=== PATIENT | male | born 1970 | race Caucasian/White ===

== ENCOUNTER 2016-08-08 17:45 | Emergency (ER) | payer SELFPAY ==
[~2016-08-08 17:45] MED LIST: ATEN100T PO; ATOR10TA60 PO; CYCL10TA2 PO; DICY20TA30 PO; HYDR-2666 PO; HYDR-971 PO; INSU100I11 SQ; INSU100I13 SQ; INSU100V31 SQ; LISI40TA PO; METF10002 PO; OMEP20TA PO; PROAIR HFA8.5 GM IH
[2016-08-08] MEDS ORDERED: IV NORMAL SALINE 1000ML BAG 1,000 ML IV SCH (18:12)
[2016-08-08] MEDS ORDERED: ONDANSETRON PF 4 MG/2 ML VIAL. IV ONE (18:15)
[2016-08-08] MEDS ORDERED: FENTANYL PF 100 MCG/2 ML VIAL. IV ONE (18:15)
[2016-08-08] MEDS ORDERED: IPRATRPIUM/ALBUTEROL 0.5/2.5MG 3 ML NEBU. NEB ONE (18:15)
--- NOTE | 2016-08-08 18:15 | PHYS DOC ---
Past Medical History Past Medical History: Asthma, CAD, Diabetes-Type II, Hypertension, Kidney Stone , MRSA, Pancreatitis Additional Past Medical Histor: STAPH INFECTION Past Surgical History: Angioplasty, Cholecystectomy, Other Additional Past Surgical Histo: Lithotripsy x 3, Abscess on back; heart cath Alcohol Use: Rarely Drug Use: None Adult General Chief Complaint Chief Complaint: ABDOMINAL PAIN HPI HPI Patient is a 45 year old who presents with LUQ pain. Patient reports he has been having this pain off/on for a while, however the pain got much worse after dinner tonight. He describes a sharp pain in his left upper quadrant that radiates to his back. He is accompanied by nausea but not vomiting. No pain in his chest, no shortness of breath. He did not take anything for the symptoms at home prior to coming to ED. Patient reports pain similar to past bouts of pancreatitis. Review of Systems Review of Systems Constitutional: Denies fever or chills Eyes: Denies change in visual acuity or eye pain HENT: Denies nasal congestion or sore throat Respiratory: Denies cough or shortness of breath Cardiovascular: Denies chest pain GI: LUQ pain, nausea. Denies vomiting, bloody stools or diarrhea : Denies dysuria or hematuria Musculoskeletal: Denies back pain or joint pain Integument: Denies rash or skin lesions Neurologic: Denies headache, focal weakness or sensory changes Current Medications Current Medications Current Medications Medications (Trade) Dose Ordered Sig/Alice Start Time Stop Time Status Last Admin Dose Admin Albuterol/ Ipratropium (Duoneb) 3 ml 1X ONCE 08/08/16 18:15 08/08/16 18:16 DC 08/08/16 19:07 3 ML Fentanyl Citrate (Fentanyl 2ml Vial) 50 mcg PRN Q1HR PRN 08/08/16 18:45 08/08/16 19:51 DC 08/08/16 18:53 50 MCG Ondansetron HCl (Zofran) 4 mg 1X ONCE 08/08/16 18:15 08/08/16 18:16 DC 08/08/16 18:19 4 MG Oxycodone/ Acetaminophen (Percocet 5/325) 2 tab 1X ONCE 08/08/16 19:30 08/08/16 19:33 DC 08/08/16 19:44 2 TAB Sodium Chloride (Iv Sodium Chloride 0.9% 1000ml Bag) 1,000 ml @ 1,000 mls/hr Q1H 08/08/16 18:12 08/08/16 19:11 DC 08/08/16 18:17 1,000 MLS/HR Allergies Allergies Allergies Coded Allergies Type Severity Reaction Last Updated Verified ketorolac Allergy Severe ANAPHYLAXIS 03/09/15 Yes NSAIDS (Non-Steroidal Anti-Inflamma Allergy Intermediate 10/03/14 Yes gabapentin Allergy Intermediate 12/11/14 Yes morphine Allergy Intermediate Hives, tolerates Dilaudid 12/10/14 Yes vancomycin Allergy Intermediate 06/05/16 Yes Physical Exam Physical Exam Constitutional: Well developed, well nourished, no acute distress, non-toxic appearance HENT: Normocephalic, atraumatic, bilateral external ears normal Eyes: EOMI, conjunctiva normal, no discharge Neck: Normal range of motion, no stridor Cardiovascular: Heart rate normal, regular rhythm, no murmur Lungs & Thorax: Bilateral breath sounds clear to auscultation Abdomen: Bowel sounds normal, soft, non-distended, LUQ TTP Skin: Warm, dry, no erythema, no rash Extremities: No obvious deformity, no edema Neurologic: Alert and oriented X 3, no gross deficits noted Current Patient Data Vital Signs Vital Signs Date Time Temp Pulse Resp B/P Pulse Ox O2 Delivery O2 Flow Rate FiO2 08/08/16 19:44 22 98 Room Air 08/08/16 19:15 110 177/97 08/08/16 18:04 98.5 98.5 Lab Values Laboratory Tests Test 08/08/16 18:10 08/08/16 18:33 White Blood Count 15.8x10^3/uL (4.0-11.0) H Red Blood Count 5.09x10^6/uL (4.30-5.70) Hemoglobin 15.9g/dL (13.0-17.5) Hematocrit 45.6% (39.0-53.0) Mean Corpuscular Volume 90fL (79-100) Mean Corpuscular Hemoglobin 31pg (25-35) Mean Corpuscular Hemoglobin Concent 35g/dL (31-37) Red Cell Distribution Width 13.2% (11.5-14.5) Platelet Count 266x10^3/uL (140-400) Neutrophils (%) (Auto) 80% (31-73) H Lymphocytes (%) (Auto) 14% (24-48) L Monocytes (%) (Auto) 5% (0-9) Eosinophils (%) (Auto) 1% (0-3) Basophils (%) (Auto) 1% (0-3) Neutrophils # (Auto) 12.6x10^3uL (1.8-7.7) H Lymphocytes # (Auto) 2.2x10^3/uL (1.0-4.8) Monocytes # (Auto) 0.7x10^3/uL (0.0-1.1) Eosinophils # (Auto) 0.1x10^3/uL (0.0-0.7) Basophils # (Auto) 0.1x10^3/uL (0.0-0.2) Segmented Neutrophils % 84% (35-66) H Band Neutrophils % 1% (0-9) Lymphocytes % 9% (24-48) L Monocytes % 5% (0-10) Eosinophils % 1% (0-5) Platelet Estimate Adequate (ADEQUATE) Sodium Level 138mmol/L (136-145) Potassium Level 4.4mmol/L (3.5-5.1) Chloride Level 101mmol/L (98-107) Carbon Dioxide Level 27mmol/L (21-32) Anion Gap 10 (6-14) Blood Urea Nitrogen 12mg/dL (8-26) Creatinine 0.8mg/dL (0.7-1.3) Estimated GFR (Cockcroft-Gault) 105.0 BUN/Creatinine Ratio 15 (6-20) Glucose Level 287mg/dL (70-99) H Calcium Level 10.0mg/dL (8.5-10.1) Total Bilirubin 0.3mg/dL (0.2-1.0) Aspartate Amino Transferase (AST) 14U/L (15-37) L Alanine Aminotransferase (ALT) 22U/L (16-63) Alkaline Phosphatase 100U/L (46-116) Total Protein 8.1g/dL (6.4-8.2) Albumin 3.8g/dL (3.4-5.0) Albumin/Globulin Ratio 0.9 (1.0-1.7) L Lipase 96U/L (73-393) Urine Collection Type Unknown Urine Color Yellow Urine Clarity Clear Urine pH 5.5 Urine Specific [place] 1.025 Urine Protein 30mg/dL (NEG-TRACE) Urine Glucose (UA) >=1000mg/dL (NEG) Urine Ketones (Stick) Negativemg/dL (NEG) Urine Blood Negative (NEG) Urine Nitrite Negative (NEG) Urine Bilirubin Negative (NEG) Urine Urobilinogen Dipstick 0.2mg/dL (0.2 mg/dL) Urine Leukocyte Esterase Negative (NEG) Urine RBC Occ/HPF (0-2) Urine WBC 1-4/HPF (0-4) Urine Squamous Epithelial Cells Few/LPF Urine Bacteria 0/HPF (0-FEW) Urine Mucus Mod/LPF Laboratory Tests 08/08/16 18:10 Laboratory Tests 08/08/16 18:10 EKG EKG EKG (my read): sinus tachycardia, rate 114, normal axis, intervals wnl, no acute ischemic changes Radiology/Procedures Radiology/Procedures [] Course & Med Decision Making Course & Med Decision Making Pertinent Labs and Imaging studies reviewed. (See chart for details) Patient is 45 year old male who presents with LUQ pain. Although pancreatitis is on differential, he does not have any epigastric TTP so would consider stomach pathology (gastritis, PUD) to be more likely. Patient has not been taking omeprazole that was prescribed at last visit. Will check labs, UA, EKG. IVF, pain meds, nausea meds ordered for symptom relief. EKG ok per my read. Labs notable for leukocytosis, although this is near recent baseline. Lipase wnl. Discussed results with patient. Discussed importance of taking PPI and following up with gastroenterology. Discharged home with rx for pain meds, nausea meds, omeprazole. Dragon Disclaimer Dragon Disclaimer This electronic medical record was generated, in whole or in part, using a voice recognition dictation system. Departure Departure Impression: Primary Impression: Left upper quadrant pain Disposition: 01 HOME, SELF-CARE Condition: STABLE Referrals: NO PCP (PCP) CYRUS BURROWS MD Patient Instructions: Abdominal Pain (Nonspecific) Additional Instructions: Thank you for allowing us to provide care today in the Emergency Department. Take the provided medication as directed. Use caution after taking the pain medication as it can make you drowsy. Schedule a follow up appointment with a GI specialist (Dr. Burrows) using the provided contact information. Return promptly to the Emergency Department if you develop any new or concerning symptoms. Scripts Omeprazole 20 Mg Tablet.dr20 Mg PO DAILY #30 TAB Prov:BRENNAN LÓPEZ MD 08/08/16 Ondansetron (Zofran Odt)4 Mg Tab.rapdis1 Tab SL Q8HRS PRN NAUSEA #15 TAB Prov:BRENNAN LÓPEZ MD 08/08/16 Hydrocodone/[place]ap 5-325 ([place] 5-325 Tablet)1 Each Tablet1 Tab PO PRN Q6HRS PRN PAIN #20 TAB Prov:BRENNAN LÓPEZ MD 08/08/16 BRENNAN LÓPEZ MD Aug 08, 2016 18:14
[2016-08-08 18:23] LABS: BASO # 0.1 x10^3/uL (0.0-0.2); BASO % 1 % (0-3); EOS % 1 % (0-3); HEMATOCRIT 45.6 % (39.0-53.0); HEMOGLOBIN 15.9 g/dL (13.0-17.5); LYMPH # 2.2 x10^3/uL (1.0-4.8); LYMPH % 14 % (24-48); MEAN CORPUSCULAR HEMOGLOBIN 31 pg (25-35); MEAN CORPUSCULAR HGB CONC 35 g/dL (31-37); MEAN CORPUSCULAR VOLUME 90 fL (79-100); MONO % 5 % (0-9); NEUT % 80 % (31-73); PLATELET COUNT 266 x10^3/uL (140-400); RED BLOOD COUNT 5.09 x10^6/uL (4.30-5.70); RED CELL DISTRIBUTION WIDTH 13.2 % (11.5-14.5); WHITE BLOOD COUNT 15.8 x10^3/uL (4.0-11.0)
[2016-08-08 18:34] LABS: CREATININE 0.8 mg/dL (0.7-1.3); POTASSIUM 4.4 mmol/L (3.5-5.1)
[2016-08-08 18:40] LABS: ALBUMIN 3.8 g/dL (3.4-5.0); ALBUMIN/GLOBULIN RATIO 0.9 (1.0-1.7); TOTAL BILIRUBIN 0.3 mg/dL (0.2-1.0); TOTAL PROTEIN 8.1 g/dL (6.4-8.2)
[2016-08-08] MEDS ORDERED: FENTANYL PF 100 MCG/2 ML VIAL. IV PRN (18:45)
[2016-08-08 18:46] LABS: BILIRUBIN,URINE NEGATIVE (NEG); GLUCOSE,URINE >=1000 mg/dL (NEG); NITRITE,URINE NEGATIVE (NEG); PH,URINE 5.5; UROBILINOGEN,URINE 0.2 mg/dL (0.2 mg/dL)
[2016-08-08 19:04] LABS: BACTERIA,URINE 0 /HPF (0-FEW); PROTEIN,URINE 30 mg/dL (NEG-TRACE); RBC,URINE OCC /HPF (0-2); SQUAMOUS EPITHELIAL CELL,UR FEW /LPF
[2016-08-08 19:15] VITALS: BP 177/97
[2016-08-08 19:19] LABS: % EOS 1 % (0-5); PLT ESTIMATE ADEQUATE (ADEQUATE)
[2016-08-08] MEDS ORDERED: OXYCODONE/APAP 5/325 TABLET. PO ONE (19:30)
[2016-08-08] MEDS ORDERED: ONDA4TAB10 SL (19:33)
[2016-08-08] MEDS ORDERED: HYDR-971 PO (19:33)
[2016-08-08] MEDS ORDERED: OMEP20TA PO (19:33)
--- NOTE | 2016-08-09 11:38 | EKG ---
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
== END 2016-08-08 19:40 | disposition home or self-care (01) ==
LOC: ER 17:45
DX: R10.12 Left upper quadrant pain (principal); J45.909 Unspecified asthma, uncomplicated; E11.9 Type 2 diabetes mellitus without complications; I25.10 Atherosclerotic heart disease of native coronary artery without angina pectoris; I10 Essential (primary) hypertension; Z98.61 Coronary angioplasty status; Z88.6 Allergy status to analgesic agent; Z88.1 Allergy status to other antibiotic agents; Z88.5 Allergy status to narcotic agent; Z88.8 Allergy status to other drugs, medicaments and biological substances
CPT/HCPCS: 36415; 80053; 81001; 83690; 85007; 85027; 93005; 94640; 96361; 96374; 96375; 96376; 99285; J2405; J3010; J7030; J7620

== ENCOUNTER 2016-10-12 15:40 | Inpatient (IN) | payer SELFPAY ==
[~2016-10-12] VITALS: Ht 172.7 cm; Wt 131.8 kg
[~2016-10-12 15:40] MED LIST changes: +ONDA4TAB10 SL
[2016-10-12] MEDS ORDERED: IV NORMAL SALINE 1000ML BAG 1,000 ML IV ONE (16:00)
[2016-10-12 16:16] LABS: BASO # 0.1 x10^3/uL (0.0-0.2); BASO % 1 % (0-3); EOS % 1 % (0-3); HEMATOCRIT 45.3 % (39.0-53.0); HEMOGLOBIN 16.1 g/dL (13.0-17.5); LYMPH # 2.5 x10^3/uL (1.0-4.8); LYMPH % 17 % (24-48); MEAN CORPUSCULAR HEMOGLOBIN 31 pg (25-35); MEAN CORPUSCULAR HGB CONC 36 g/dL (31-37); MEAN CORPUSCULAR VOLUME 87 fL (79-100); MONO % 5 % (0-9); NEUT % 77 % (31-73); PLATELET COUNT 303 x10^3/uL (140-400); RED BLOOD COUNT 5.21 x10^6/uL (4.30-5.70); WHITE BLOOD COUNT 14.9 x10^3/uL (4.0-11.0)
[2016-10-12] MEDS ORDERED: HYDROMORPHONE 2 MG/ML VIAL. IV ONE ×2 (16:30→17:45)
[2016-10-12] MEDS ORDERED: ONDANSETRON PF 4 MG/2 ML VIAL. IV ONE (16:30)
--- NOTE | 2016-10-12 16:30 | EKG ---
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
[2016-10-12 16:53] LABS: BILIRUBIN,URINE NEGATIVE (NEG); GLUCOSE,URINE >=1000 mg/dL (NEG); NITRITE,URINE NEGATIVE (NEG); PH,URINE 6.5; PROTEIN,URINE 30 mg/dL (NEG-TRACE); UROBILINOGEN,URINE 0.2 mg/dL (0.2 mg/dL)
[2016-10-12 17:17] LABS: BACTERIA,URINE 0 /HPF (0-FEW); RBC,URINE >40 /HPF (0-2); SQUAMOUS EPITHELIAL CELL,UR FEW /LPF; WBC,URINE RARE /HPF (0-4)
[2016-10-12 17:36] LABS: CALCIUM 10.4 mg/dL (8.5-10.1); CREATININE 1.1 mg/dL (0.7-1.3); GFR 72.7; POTASSIUM 4.9 mmol/L (3.5-5.1)
[2016-10-12 17:42] LABS: ALBUMIN 3.6 g/dL (3.4-5.0); ALBUMIN/GLOBULIN RATIO 0.8 (1.0-1.7); TOTAL BILIRUBIN 0.4 mg/dL (0.2-1.0); TOTAL PROTEIN 8.4 g/dL (6.4-8.2)
--- NOTE | 2016-10-12 18:16 | RAD ---
PROCEDURE CT abdomen and pelvis without intravenous contrast. HISTORY Abdominal pain. TECHNIQUE Helical CT of the abdomen and pelvis was performed without intravenous or oral contrast. Exposure: One or more of the following individualized dose reduction techniques were utilized for this examination: 1. Automated exposure control. 2. Adjustment of the mA and/or kV according to patient size. 3. Use of iterative reconstruction technique. COMPARISON CT abdomen pelvis June 10, 2016. FINDINGS Evaluation of solid organs is limited by lack of intravenous contrast. Evaluation of enteric structures may be limited by lack of oral contrast. Liver, spleen, pancreas, and bilateral adrenal glands are unremarkable. Gallbladder is absent. Bilateral ureters are free of stone destruction. No left renal stones are seen. Right kidney demonstrates punctate nonobstructive nephrolith. Urinary bladder is unremarkable. No bowel obstruction or inflammation is seen. Appendix is absent. No free air or free fluid is seen in the abdomen or pelvis. Degenerative changes are present in spine. IMPRESSION 1. No acute abnormality identified in the abdomen or pelvis. 2. Punctate nonobstructive right nephrolith. Electronically signed by: Amrik Gee MD (Oct 12, 2016 18:14:56)
--- NOTE | 2016-10-12 18:51 | PHYS DOC ---
Past Medical History Past Medical History: Asthma, CAD, Diabetes-Type II, Hypertension, Kidney Stone , MRSA, Pancreatitis Additional Past Medical Histor: STAPH INFECTION Past Surgical History: Appendectomy, Cholecystectomy, Other Additional Past Surgical Histo: Lithotripsy x 3, Abscess on back; heart cath ( NO STENTS) Alcohol Use: Rarely Drug Use: None Adult General Chief Complaint Chief Complaint: CHEST WALL PAIN HPI HPI 45-year-old male with a history of a cholecystectomy presents with severe epigastric pain after eating lunch today. He states this been going on for about an hour or so. He has had some nausea but no vomiting. He denies any melena or hematemesis. He states he is taking Prilosec on a daily basis. He states the pain is fairly severe and feels very similar to a previous situation just prior to his cholecystectomy.] Review of Systems Review of Systems Constitutional: Denies fever or chills [] Eyes: Denies change in visual acuity, redness, or eye pain [] HENT: Denies nasal congestion or sore throat [] Respiratory: Denies cough or shortness of breath [] Cardiovascular: No additional information not addressed in HPI [] GI: Per history of present illness [] : Denies dysuria or hematuria [] Musculoskeletal: Denies back pain or joint pain [] Integument: Denies rash or skin lesions [] Neurologic: Denies headache, focal weakness or sensory changes [] Endocrine: Denies polyuria or polydipsia [] Current Medications Current Medications Current Medications Medications (Trade) Dose Ordered Sig/Alice Start Time Stop Time Status Last Admin Dose Admin Hydromorphone HCl (Dilaudid) 1 mg 1X ONCE 10/12/16 16:30 10/12/16 16:31 DC 10/12/16 16:24 1 MG Hydromorphone HCl 1 mg 1 mg 1X ONCE 10/12/16 17:45 10/12/16 17:46 DC 10/12/16 17:46 1 MG Ondansetron HCl (Zofran) 4 mg 1X ONCE 10/12/16 16:30 10/12/16 16:31 DC 10/12/16 16:23 4 MG Sodium Chloride (Iv Sodium Chloride 0.9% 1000ml Bag) 1,000 ml @ 150 mls/hr Q6H40M 10/12/16 18:57 10/13/16 18:56 10/12/16 20:30 150 MLS/HR Allergies Allergies Allergies Coded Allergies Type Severity Reaction Last Updated Verified ketorolac Allergy Severe ANAPHYLAXIS 03/09/15 Yes NSAIDS (Non-Steroidal Anti-Inflamma Allergy Intermediate 10/03/14 Yes gabapentin Allergy Intermediate 12/11/14 Yes morphine Allergy Intermediate Hives, tolerates Dilaudid 12/10/14 Yes vancomycin Allergy Intermediate 06/05/16 Yes Physical Exam Physical Exam Constitutional: Well developed, well nourished, no acute distress, non-toxic appearance. [] HENT: Normocephalic, atraumatic, bilateral external ears normal, oropharynx moist, no oral exudates, nose normal. [] Eyes: PERRLA, EOMI, conjunctiva normal, no discharge. [] Neck: Normal range of motion, no tenderness, supple, no stridor. [] Cardiovascular:Heart rate regular rhythm, no murmur [] Lungs & Thorax: Bilateral breath sounds clear to auscultation [] Abdomen: Bowel sounds normal, soft, no tenderness, no masses, no pulsatile masses. [] Skin: Warm, dry, no erythema, no rash. [] Back: No tenderness, no CVA tenderness. [] Extremities: No tenderness, no cyanosis, no clubbing, ROM intact, no edema. [] Neurologic: Alert and oriented X 3, normal motor function, normal sensory function, no focal deficits noted. [] Psychologic: Affect normal, judgement normal, mood normal. [] Current Patient Data Vital Signs Vital Signs Date Time Temp Pulse Resp B/P Pulse Ox O2 Delivery O2 Flow Rate FiO2 10/12/16 18:15 112 203/119 95 Room Air 10/12/16 17:46 14 10/12/16 15:49 98.3 98.3 Lab Values Laboratory Tests Test 10/12/16 16:10 10/12/16 16:40 White Blood Count 14.9x10^3/uL (4.0-11.0) H Red Blood Count 5.21x10^6/uL (4.30-5.70) Hemoglobin 16.1g/dL (13.0-17.5) Hematocrit 45.3% (39.0-53.0) Mean Corpuscular Volume 87fL (79-100) Mean Corpuscular Hemoglobin 31pg (25-35) Mean Corpuscular Hemoglobin Concent 36g/dL (31-37) Red Cell Distribution Width 13.0% (11.5-14.5) Platelet Count 303x10^3/uL (140-400) Neutrophils (%) (Auto) 77% (31-73) H Lymphocytes (%) (Auto) 17% (24-48) L Monocytes (%) (Auto) 5% (0-9) Eosinophils (%) (Auto) 1% (0-3) Basophils (%) (Auto) 1% (0-3) Neutrophils # (Auto) 11.4x10^3uL (1.8-7.7) H Lymphocytes # (Auto) 2.5x10^3/uL (1.0-4.8) Monocytes # (Auto) 0.8x10^3/uL (0.0-1.1) Eosinophils # (Auto) 0.1x10^3/uL (0.0-0.7) Basophils # (Auto) 0.1x10^3/uL (0.0-0.2) Sodium Level 138mmol/L (136-145) Potassium Level 4.9mmol/L (3.5-5.1) Chloride Level 100mmol/L (98-107) Carbon Dioxide Level 23mmol/L (21-32) Anion Gap 15 (6-14) H Blood Urea Nitrogen 20mg/dL (8-26) Creatinine 1.1mg/dL (0.7-1.3) Estimated GFR (Cockcroft-Gault) 72.7 BUN/Creatinine Ratio 18 (6-20) Glucose Level 299mg/dL (70-99) H Calcium Level 10.4mg/dL (8.5-10.1) H Total Bilirubin 0.4mg/dL (0.2-1.0) Aspartate Amino Transferase (AST) 36U/L (15-37) Alanine Aminotransferase (ALT) 30U/L (16-63) Alkaline Phosphatase 91U/L (46-116) Troponin I Quantitative < 0.017ng/mL (0.000-0.055) Total Protein 8.4g/dL (6.4-8.2) H Albumin 3.6g/dL (3.4-5.0) Albumin/Globulin Ratio 0.8 (1.0-1.7) L Lipase 103U/L (73-393) Ethyl Alcohol Level < 10mg/dL (0-10) Urine Collection Type Void Urine Color Yellow Urine Clarity Clear Urine pH 6.5 Urine Specific [place] 1.020 Urine Protein 30mg/dL (NEG-TRACE) Urine Glucose (UA) >=1000mg/dL (NEG) Urine Ketones (Stick) Tracemg/dL (NEG) Urine Blood Large (NEG) Urine Nitrite Negative (NEG) Urine Bilirubin Negative (NEG) Urine Urobilinogen Dipstick 0.2mg/dL (0.2 mg/dL) Urine Leukocyte Esterase Trace (NEG) Urine RBC >40/HPF (0-2) Urine WBC Rare/HPF (0-4) Urine Squamous Epithelial Cells Few/LPF Urine Bacteria 0/HPF (0-FEW) Urine Mucus Slight/LPF Laboratory Tests 10/12/16 16:10 Laboratory Tests 10/12/16 16:10 EKG EKG [] Radiology/Procedures Radiology/Procedures [] Course & Med Decision Making Course & Med Decision Making Pertinent Labs and Imaging studies reviewed. (See chart for details) [ED course: Evaluation reveals 45-year-old male in mild to moderate distress secondary to abdominal pain. He was given IV fluids and 2 doses of Dilaudid with continued pain.] Dragon Disclaimer Dragon Disclaimer This electronic medical record was generated, in whole or in part, using a voice recognition dictation system. Departure Departure Impression: Primary Impression: Abdominal pain Disposition: ADMITTED INPATIENT Admitting Physician: Other (Reusch) Condition: STABLE Referrals: NO PCP (PCP) Problem Qualifiers Primary Impression: Abdominal pain Abdominal location: generalized Qualified Code: R10.84 - Generalized abdominal pain TIP TRAN DO Oct 12, 2016 18:51
[2016-10-12] MEDS ORDERED: DEXTROSE 50% 25 GM / 50ML DISP.SYRIN. IV PRN (19:00)
[2016-10-12] MEDS ORDERED: ONDANSETRON PF 4 MG/2 ML VIAL. IV PRN (19:00)
[2016-10-12] MEDS: FENTANYL PF 100 MCG/2 ML VIAL. IV PRN ×4 (19:44→23:06)
[2016-10-12 20:11] VITALS: BP 148/84
[2016-10-12] MEDS ORDERED: OMEP40CA5 PO (20:26)
[2016-10-12] MEDS ORDERED: ATEN50TA PO (20:26)
--- NOTE | 2016-10-12 20:29 | ACF ---
Admission Forms Criteria TELEMETRY CARE Telemetry Admission Guidelines (Place 'X' for any and all applicable criteria): Admission to telemetry [A] may be indicated for ANY ONE of the following(1)(2)(3 )(4)(5): [X]I. Cardiac disease, including ANY ONE of the following (9)(10)(11)(12)(13 ): [ ]a) Postacute TX [ ]b) Low-risk patients with ST-segment elevation TX who have undergone successful percutaneous coronary intervention [ ]c) Unstable angina [ ]d) Suspected TX (until it is ruled out) [ ]e) Post cardiac surgery (first 48 to 72 hours unless complications occur) [X]f) Acute arrhythmias (including significant tachycardia or bradycardia) [B] [ ]g) Firing of an implantable cardioverter defibrillator [C] [ ]h) Suspected pacemaker or implantable cardioverter defibrillator malfunction (10) [ ]i) New administration or adjustment of an antiarrhythmic drug [D ] [ ]j) Child admitted for acute congestive heart failure [ ]j) Long QT syndrome [ ]k) Advanced heart block (eg, second-degree Mobitz type II, third- degree heart block) [ ]l) Acute myocarditis or pericarditis [ ]m) Short-term (ambulatory or inpatient) monitoring after a cardiac procedure as indicated by ANY ONE of the following [E]: [ ]i) Electrophysiologic studies [ ]ii) Percutaneous coronary intervention with stent placement [ ]iii) Pacemaker placement with cardiac conduction defect [ ]iv) Implantable cardiac defibrillator placement [ ]II. Drug overdose or poisoning with substance that causes arrhythmias or QT prolongation (eg, phenothiazines, sympathomimetic agents, cyclic antidepressants, digitalis, antiarrhythmic drugs)(15) [ ]III. Short-term (ambulatory or inpatient) monitoring after therapeutic or diagnostic procedure requiring conscious sedation or anesthesia (eg, endoscopy, elective cardioversion) [ ]IV. Acute cerebrovascular even[F](18) [ ]V. Massive blood transfusion (eg, at least 10 units of packed red blood cells in 24 hours) [ ]. Variceal bleeding after endoscopy, sclerotherapy, or IV vasopressin [ ]VII. Uncorrected electrolyte abnormalities associated with an increased risk of dangerous arrhythmia [G]; examples include [ ]a) Hyperkalemia with attributable ECG changes [ ]b) Potassium greater than 6.5 mmol/L (mEq/L) in a patient without history of chronic renal disease [ ]c) Prolonged QT attributed to hypokalemia, hypomagnesemia, or hypocalcemia [ ]VIII.Unexplained syncope or other neurologic event suspected of being due to arrhythmia due to a finding that increases risk; examples include(19)(20)(21): [ ]a) High-risk ECG findings (eg, bifascicular block, bradycardia, abnormal QT interval, ventricular pre- excitation) [ ]b) History of previous syncope due to arrhythmia [ ]c) Abnormal ventricular function (eg, reduced ejection fraction ) [ ]d) Exertional or supine syncope [ ]e) Concerning syncope characteristics (eg, sudden loss of consciousness without prodrome) [ ]f) Family history of sudden [ ]g) Use of arrhythmogenic medication [ ]h) Suspected cardiac ischemia [ ]i) Known channelopathy (eg, long QT syndrome, Brugada syndrome, or catecholaminergic paroxysmal ventricular tachycardia) [ ]j) Known structural heart disease (eg, hypertrophic cardiomyopathy , severe valvular disease) [ ]k) Palpitations preceding syncope The original [email or web address] content created by [email or web address] has been revised. The portions of the content which have been revised are identified through the use of italic text or in bold, and [email or web address] has neither reviewed nor approved the modified material. All other unmodified content is copyright [email or web address]. Please see references footnoted in the original [email or web address] edition 2016 WILMAR DAMON Oct 12, 2016 20:29
[2016-10-12] MEDS: IV NORMAL SALINE 1000ML BAG 1,000 ML IV SCH (20:30)
[2016-10-12 23:00] VITALS: BP 153/47
[2016-10-12] MEDS ORDERED: NON FORMULARY ITEM (Albuterol Sulfate (Proair Hfa Inhaler) 2 PUFF) IH SCH (23:30)
[2016-10-12] MEDS: INSULIN DETEMIR 300 UNITS/3 ML INSULN.PEN. SQ SCH (23:37)
[2016-10-12] MEDS ORDERED: ALBUTEROL SULFATE 2.5 MG/3 ML NEBU. NEB PRN (23:45)
[2016-10-13] VITALS (7 sets, daily range): BP systolic 114–158; BP diastolic 66–105
[2016-10-13] MEDS: HYDROMORPHONE 2 MG/ML VIAL. IV PRN ×11 (00:10→22:13)
--- NOTE | 2016-10-13 00:24 | HP ---
ADMIT DATE: 10/12/2016 CHIEF COMPLAINT: Chest wall pain. HISTORY OF PRESENT ILLNESS: The patient is a 45-year-old obese gentleman with diabetes who presented to the Emergency Room with severe right-sided/epigastric abdominal pain that started after eating lunch today. He denied any nausea or vomiting, denies any melena or hematemesis. He does take Prilosec t.i.d. from previous admission for abdominal pain. He states that he actually had undergone cholecystectomy several years ago and the pain currently is very reminiscent of his symptoms then. Once again pain is radiating through all the way to his back. Pain is worse when he stretches or takes a very deep breath. The patient relates that he actually has been in the hospital multiple times for abdominal pain, which apparently was attributed to pancreatitis, multiple times. He was at that time in [facility]. He relates that he also had an EGD done about 6 months ago, which according to him was fairly benign with any significant findings. Nevertheless, he had been started at that time on PPI t.i.d. PAST MEDICAL HISTORY: Abdominal pain as above, recurrent pancreatitis, status post cholecystectomy, CAD, diabetes type 2, hypertension, hyperlipidemia, asthma, history of kidney stones with lithotripsy x 3. FAMILY HISTORY: Positive for diabetes and CAD. SOCIAL HISTORY: Lives with his and 2 children. 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 Denies any tobacco use, quit 11 years ago. No alcohol or drug use. ALLERGIES: NSAIDS, MORPHINE AND VANCOMYCIN. MEDICATIONS: MAR reconciled with home medications. REVIEW OF SYSTEMS: Positive as per HPI. Rest of organ system review is negative. PHYSICAL EXAMINATION: VITAL SIGNS: Today show a blood pressure of 148/84, heart rate of 105, respiratory rate is 22. He is afebrile. GENERAL: This is a morbidly obese 45-year-old gentleman, alert and oriented, in mild distress, trying to lie still without moving. HEENT: Shows no scleral icterus. NECK: Supple. LUNGS: Clear to auscultation bilaterally. CARDIOVASCULAR: Regular rate and rhythm. ABDOMEN: Has positive bowel sounds, soft, tenderness to palpation in the subxiphoid area. He actually locates the pain over his right lower ribs. Pain, however, also present to palpation in the right upper quadrant at the costal border. EXTREMITIES: Show no edema. SKIN: Warm, soft and dry without any rashes. LABORATORY DATA: CBC with a WBC of 14.9, neutrophils 77, lymphocytes 17, hemoglobin 16, platelets at 303. Chemistries with a BUN and creatinine of 20 and 1.1, normal electrolytes. Glucose is 299. Normal LFTs, normal lipase and normal troponin. IMAGING: CT of the abdomen and pelvis without any acute abnormality identified. There is a punctate nonobstructive right nephrolith noted incidentally. ASSESSMENT AND PLAN: The patient is a 45-year-old morbidly obese gentleman with diabetes and history of cholecystitis/cholecystectomy, who now presents with right upper quadrant/rib pain. Etiology is somewhat unclear. CAT scan does not show any abnormality in his biliary tree. History of pancreatitis seems to be not repeating at this point. His lipase was completely normal and the location of pain is not where he had previous issues. GI will be consulted. We will obtain a CTA of the chest as well as to rule out PE. However, suspicion could also be that this is musculoskeletal rather than other etiology. We will try pain control with IV Dilaudid. Fentanyl does not seem to work terribly well for him and he states he has allergy to morphine. I will keep him n.p.o. for now. His diabetes is borderline controlled. We will continue his long-acting insulin, but decrease the dose from 90-40 units while he is n.p.o. Monitor his blood sugars with insulin sliding scale. Although no history of gastritis, he has the unusual prescription of pantoprazole t.i.d. a.c. We will continue that for now. SADAF SUMMERS MD DR: CESAR/osiris JOB#: [id number] / [id number] CLAIRE
[2016-10-13] MEDS: IV NORMAL SALINE 1000ML BAG 1,000 ML IV SCH ×3 (02:10→14:57)
--- NOTE | 2016-10-13 02:43 | ACF ---
Admission Forms Criteria ABDOMINAL PAIN Clinical Indications for Admission to Inpatient Care (Place 'X' for any and all applicable criteria): Admission is indicated for ANY ONE of the following(1)(2)(3)(4)(5): [X]I. Inpatient admission required rather than observation care (Also use Abdominal Pain: Observation Care, as appropriate) because of ANY ONE of the following: [X]a) Severe pain requiring acute inpatient management [ ]b) Identification of etiology/finding that requires inpatient care (eg, aortic dissection, free air) [ ]c) Absent bowel sounds with complete ileus(6) [ ]d) Suspected toxic megacolon [ ]e) Severe electrolyte abnormalities requiring inpatient care [ ]f) High fever or infection requiring inpatient admission as indicated by ANY ONE of following(7)(8): [ ] i) Appropriate outpatient or observational care antimicrobial treatment unavailable, not effective, or not feasible [ ] ii) Documented bacteremia [ ] iii) Temperature > 104.9 degrees F (oral) [ ] iv) T >103.1 F (oral) or < 96.8 F(rectal) that does not respond to all emergency treatment measures [ ]g) Signs of intestinal obstruction [B] [ ]h) Hemodynamic instability [ ]i) IV fluid to replace significant ongoing losses (greater than 3 L/m2 per day) (12)(13) [ ]j) Percutaneous or open drainage (eg, abscess, biliary tract ) procedures [ ]k) Parenteral nutrition regimen that must be implemented on inpatient basis [ ]l) Other condition,treatment or monitoring requiring inpatient admission. [ ]II. Peritoneal signs present [ ]III. Surgery needed that cannot be performed on an ambulatory basis. [ ]IV. Evaluation requires patient to not eat or drink for extended period ( eg, more than 24 hours). [ ]V. Contraindications and/or Inappropriate clinical situations for Observational Care in patients with abdominal pain, when ANY ONE of the following is required: [ ]a) Thorough evaluation is required to prevent catastrophic events due to delays in diagnosing (e.g.Mesenteric ischemia) 1,3 [ ]b) Patient with severe pathology or with chronic symptoms unlikely to improve in the ED stay (3) [ ]. General contraindications and/or Inappropriate clinical situations for Observational Care in patients with abdominal pain, when ANY ONE of the following is required: [ ]a) Prediction of prolongation of LOS based on ANY ONE of the following may be considered as a contraindication for observational care 2, 3, 4, 5, 6, 7, 8, 9, 10, 11 [ ]i) Age > 65 yrs. [ ]ii) Patient arriving by ambulance [ ]iii) Patient with high acuity [ ]iv) Patient requiring vital sign monitoring [ ]v) Patient on IV medication [ ]b) Systolic blood pressures 180mmHg 3,12 [ ]c) Patient with altered mental status including delirium and other alteration of consciousness, (3) [ ]d) Patient whose discharge disposition will be to a correction home or rehabilitation home should not be managed in Emergency Department Observation Unit. CMS rule requires 3 days hospital stay before such placement.3,13 [ ]e) Patient with failure to thrive due to broad array of etiologies 3,16,17 [ ]f) Inability to ambulate 3,14 Extended stay beyond goal length of stay may be needed for(2)(3): [ ]a) Persistent abdominal pain with suspected intra-abdominal process [ ]b) Diagnosed condition requiring continued stay (e.g., pancreatitis, complicated diverticulitis) [ ]c) Surgery (e.g., colectomy) The original [facility] content created by [employer] has been revised. The portions of the content which have been revised are identified through the use of italic text or in bold, and [facility] has neither reviewed nor approved the modified material.All other unmodified content is copyright [employer]. Please see references footnoted in the original [facility] edition 2016 Admission Criteria Met?: Yes WILMAR DAMON Oct 13, 2016 02:43
[2016-10-13] MEDS ORDERED: PANTOPRAZOLE 40 MG TABLET. PO SCH (07:30)
[2016-10-13] MEDS: INSULIN ASPART 300 UNITS/3 ML INSULN.PEN SQ SCH ×3 (08:00→17:00)
--- NOTE | 2016-10-13 08:04 | PDOC ---
PROGRESS NOTES Chief Complaint Chief Complaint CC: abdominal pain A/P Acute epigastric abdominal pain unclear etiology Prior hx of Pancreatitis DM HTN Plan Pain control with iv Dilaudid Avoid CO 2 narcosis GI consultation NPO IV hydration SSI HTN controlled Possible MRCP Prognosis guarded. IV Protonix History of Present Illness History of Present Illness pain 8/10, no fever no emesis Vitals Vitals Vital Signs Date Time Temp Pulse Resp B/P Pulse Ox O2 Delivery O2 Flow Rate FiO2 10/13/16 07:00 97.5 117 16 134/94 92 Room Air 97.5 Physical Exam General: Alert, Oriented X3, Cooperative Heart: Normal S1, Normal S2 Lungs: Clear Abdomen: Normal bowel sounds, Soft, Other (EPI TENDERNESS) Skin: No rashes Labs LABS Laboratory Tests Test 10/12/16 16:10 10/12/16 16:40 10/12/16 20:32 10/13/16 01:20 White Blood Count 14.9x10^3/uL (4.0-11.0) Red Blood Count 5.21x10^6/uL (4.30-5.70) Hemoglobin 16.1g/dL (13.0-17.5) Hematocrit 45.3% (39.0-53.0) Mean Corpuscular Volume 87fL (79-100) Mean Corpuscular Hemoglobin 31pg (25-35) Mean Corpuscular Hemoglobin Concent 36g/dL (31-37) Red Cell Distribution Width 13.0% (11.5-14.5) Platelet Count 303x10^3/uL (140-400) Neutrophils (%) (Auto) 77% (31-73) Lymphocytes (%) (Auto) 17% (24-48) Monocytes (%) (Auto) 5% (0-9) Eosinophils (%) (Auto) 1% (0-3) Basophils (%) (Auto) 1% (0-3) Neutrophils # (Auto) 11.4x10^3uL (1.8-7.7) Lymphocytes # (Auto) 2.5x10^3/uL (1.0-4.8) Monocytes # (Auto) 0.8x10^3/uL (0.0-1.1) Eosinophils # (Auto) 0.1x10^3/uL (0.0-0.7) Basophils # (Auto) 0.1x10^3/uL (0.0-0.2) Sodium Level 138mmol/L (136-145) Potassium Level 4.9mmol/L (3.5-5.1) Chloride Level 100mmol/L (98-107) Carbon Dioxide Level 23mmol/L (21-32) Anion Gap 15 (6-14) Blood Urea Nitrogen 20mg/dL (8-26) Creatinine 1.1mg/dL (0.7-1.3) Estimated GFR (Cockcroft-Gault) 72.7 BUN/Creatinine Ratio 18 (6-20) Glucose Level 299mg/dL (70-99) Calcium Level 10.4mg/dL (8.5-10.1) Total Bilirubin 0.4mg/dL (0.2-1.0) Aspartate Amino Transf (AST/SGOT) 36U/L (15-37) Alanine Aminotransferase (ALT/SGPT) 30U/L (16-63) Alkaline Phosphatase 91U/L (46-116) Troponin I Quantitative < 0.017ng/mL (0.000-0.055) < 0.017ng/mL (0.000-0.055) Total Protein 8.4g/dL (6.4-8.2) Albumin 3.6g/dL (3.4-5.0) Albumin/Globulin Ratio 0.8 (1.0-1.7) Lipase 103U/L (73-393) Ethyl Alcohol Level < 10mg/dL (0-10) Urine Collection Type Void Urine Color Yellow Urine Clarity Clear Urine pH 6.5 Urine Specific [place] 1.020 Urine Protein 30mg/dL (NEG-TRACE) Urine Glucose (UA) >=1000mg/dL (NEG) Urine Ketones (Stick) Tracemg/dL (NEG) Urine Blood Large (NEG) Urine Nitrite Negative (NEG) Urine Bilirubin Negative (NEG) Urine Urobilinogen Dipstick 0.2mg/dL (0.2 mg/dL) Urine Leukocyte Esterase Trace (NEG) Urine RBC >40/HPF (0-2) Urine WBC Rare/HPF (0-4) Urine Squamous Epithelial Cells Few/LPF Urine Bacteria 0/HPF (0-FEW) Urine Mucus Slight/LPF Glucose (Fingerstick) 172mg/dL (70-99) Test 10/13/16 06:55 Troponin I Quantitative < 0.017ng/mL (0.000-0.055) Assessment and Plan Assessmemt and Plan Problems Medical Problems: (1) Abdominal pain Status: Acute Problems: Comment Review of Relevant I have reviewed the following items susan (where applicable) has been applied. Labs Laboratory Tests Test 10/12/16 16:10 10/12/16 16:40 10/12/16 20:32 10/13/16 01:20 White Blood Count 14.9x10^3/uL (4.0-11.0) Red Blood Count 5.21x10^6/uL (4.30-5.70) Hemoglobin 16.1g/dL (13.0-17.5) Hematocrit 45.3% (39.0-53.0) Mean Corpuscular Volume 87fL (79-100) Mean Corpuscular Hemoglobin 31pg (25-35) Mean Corpuscular Hemoglobin Concent 36g/dL (31-37) Red Cell Distribution Width 13.0% (11.5-14.5) Platelet Count 303x10^3/uL (140-400) Neutrophils (%) (Auto) 77% (31-73) Lymphocytes (%) (Auto) 17% (24-48) Monocytes (%) (Auto) 5% (0-9) Eosinophils (%) (Auto) 1% (0-3) Basophils (%) (Auto) 1% (0-3) Neutrophils # (Auto) 11.4x10^3uL (1.8-7.7) Lymphocytes # (Auto) 2.5x10^3/uL (1.0-4.8) Monocytes # (Auto) 0.8x10^3/uL (0.0-1.1) Eosinophils # (Auto) 0.1x10^3/uL (0.0-0.7) Basophils # (Auto) 0.1x10^3/uL (0.0-0.2) Sodium Level 138mmol/L (136-145) Potassium Level 4.9mmol/L (3.5-5.1) Chloride Level 100mmol/L (98-107) Carbon Dioxide Level 23mmol/L (21-32) Anion Gap 15 (6-14) Blood Urea Nitrogen 20mg/dL (8-26) Creatinine 1.1mg/dL (0.7-1.3) Estimated GFR (Cockcroft-Gault) 72.7 BUN/Creatinine Ratio 18 (6-20) Glucose Level 299mg/dL (70-99) Calcium Level 10.4mg/dL (8.5-10.1) Total Bilirubin 0.4mg/dL (0.2-1.0) Aspartate Amino Transf (AST/SGOT) 36U/L (15-37) Alanine Aminotransferase (ALT/SGPT) 30U/L (16-63) Alkaline Phosphatase 91U/L (46-116) Troponin I Quantitative < 0.017ng/mL (0.000-0.055) < 0.017ng/mL (0.000-0.055) Total Protein 8.4g/dL (6.4-8.2) Albumin 3.6g/dL (3.4-5.0) Albumin/Globulin Ratio 0.8 (1.0-1.7) Lipase 103U/L (73-393) Ethyl Alcohol Level < 10mg/dL (0-10) Urine Collection Type Void Urine Color Yellow Urine Clarity Clear Urine pH 6.5 Urine Specific [place] 1.020 Urine Protein 30mg/dL (NEG-TRACE) Urine Glucose (UA) >=1000mg/dL (NEG) Urine Ketones (Stick) Tracemg/dL (NEG) Urine Blood Large (NEG) Urine Nitrite Negative (NEG) Urine Bilirubin Negative (NEG) Urine Urobilinogen Dipstick 0.2mg/dL (0.2 mg/dL) Urine Leukocyte Esterase Trace (NEG) Urine RBC >40/HPF (0-2) Urine WBC Rare/HPF (0-4) Urine Squamous Epithelial Cells Few/LPF Urine Bacteria 0/HPF (0-FEW) Urine Mucus Slight/LPF Glucose (Fingerstick) 172mg/dL (70-99) Test 10/13/16 06:55 Troponin I Quantitative < 0.017ng/mL (0.000-0.055) Laboratory Tests Test 10/12/16 16:10 10/12/16 16:40 10/12/16 20:32 10/13/16 01:20 White Blood Count 14.9x10^3/uL (4.0-11.0) Red Blood Count 5.21x10^6/uL (4.30-5.70) Hemoglobin 16.1g/dL (13.0-17.5) Hematocrit 45.3% (39.0-53.0) Mean Corpuscular Volume 87fL (79-100) Mean Corpuscular Hemoglobin 31pg (25-35) Mean Corpuscular Hemoglobin Concent 36g/dL (31-37) Red Cell Distribution Width 13.0% (11.5-14.5) Platelet Count 303x10^3/uL (140-400) Neutrophils (%) (Auto) 77% (31-73) Lymphocytes (%) (Auto) 17% (24-48) Monocytes (%) (Auto) 5% (0-9) Eosinophils (%) (Auto) 1% (0-3) Basophils (%) (Auto) 1% (0-3) Neutrophils # (Auto) 11.4x10^3uL (1.8-7.7) Lymphocytes # (Auto) 2.5x10^3/uL (1.0-4.8) Monocytes # (Auto) 0.8x10^3/uL (0.0-1.1) Eosinophils # (Auto) 0.1x10^3/uL (0.0-0.7) Basophils # (Auto) 0.1x10^3/uL (0.0-0.2) Sodium Level 138mmol/L (136-145) Potassium Level 4.9mmol/L (3.5-5.1) Chloride Level 100mmol/L (98-107) Carbon Dioxide Level 23mmol/L (21-32) Anion Gap 15 (6-14) Blood Urea Nitrogen 20mg/dL (8-26) Creatinine 1.1mg/dL (0.7-1.3) Estimated GFR (Cockcroft-Gault) 72.7 BUN/Creatinine Ratio 18 (6-20) Glucose Level 299mg/dL (70-99) Calcium Level 10.4mg/dL (8.5-10.1) Total Bilirubin 0.4mg/dL (0.2-1.0) Aspartate Amino Transf (AST/SGOT) 36U/L (15-37) Alanine Aminotransferase (ALT/SGPT) 30U/L (16-63) Alkaline Phosphatase 91U/L (46-116) Troponin I Quantitative < 0.017ng/mL (0.000-0.055) < 0.017ng/mL (0.000-0.055) Total Protein 8.4g/dL (6.4-8.2) Albumin 3.6g/dL (3.4-5.0) Albumin/Globulin Ratio 0.8 (1.0-1.7) Lipase 103U/L (73-393) Ethyl Alcohol Level < 10mg/dL (0-10) Urine Collection Type Void Urine Color Yellow Urine Clarity Clear Urine pH 6.5 Urine Specific [place] 1.020 Urine Protein 30mg/dL (NEG-TRACE) Urine Glucose (UA) >=1000mg/dL (NEG) Urine Ketones (Stick) Tracemg/dL (NEG) Urine Blood Large (NEG) Urine Nitrite Negative (NEG) Urine Bilirubin Negative (NEG) Urine Urobilinogen Dipstick 0.2mg/dL (0.2 mg/dL) Urine Leukocyte Esterase Trace (NEG) Urine RBC >40/HPF (0-2) Urine WBC Rare/HPF (0-4) Urine Squamous Epithelial Cells Few/LPF Urine Bacteria 0/HPF (0-FEW) Urine Mucus Slight/LPF Glucose (Fingerstick) 172mg/dL (70-99) Test 10/13/16 06:55 Troponin I Quantitative < 0.017ng/mL (0.000-0.055) Medications Current Medications Hydromorphone HCl 1 mg 1 mg 1X ONCE IV Last administered on 10/12/16 16:24; Start 10/12/16 at 16:30; Stop 10/12/16 at 16:31; Status DC Sodium Chloride (Iv Sodium Chloride 0.9% 1000ml Bag) 1,000 ml @ 1,000 mls/hr 1X ONCE IV Last administered on 10/12/16 16:24; Start 10/12/16 at 16:00; Stop 10/12/16 at 16:59; Status DC Ondansetron HCl (Zofran) 4 mg 1X ONCE IV Last administered on 10/12/16 16:23 ; Start 10/12/16 at 16:30; Stop 10/12/16 at 16:31; Status DC Hydromorphone HCl (Dilaudid) 1 mg 1X ONCE IV Last administered on 10/12/16 17 :46; Start 10/12/16 at 17:45; Stop 10/12/16 at 17:46; Status DC Ondansetron HCl (Zofran) 4 mg PRN Q8HRS PRN IV NAUSEA/VOMITING; Start 10/12/16 at 19:00; Stop 10/13/16 at 18:59 Fentanyl Citrate 50 mcg 50 mcg PRN Q1HR PRN IV PAIN Last administered on 23:06; Start 10/12/16 at 19:00; Stop 10/13/16 at 18:59 Sodium Chloride (Iv Sodium Chloride 0.9% 1000ml Bag) 1,000 ml @ 150 mls/hr Q6H40M IV Last administered on 10/13/16 02:10; Start 10/12/16 at 18:57; Stop 10/13/16 at 18:56 Insulin Aspart (Novolog) 0-7 UNITS TIDWMEALS SQ ; Start 10/13/16 at 08:00 Dextrose 12.5 gm PRN Q15MIN PRN IV SEE COMMENTS; Start 10/12/16 at 19:00 Hydromorphone HCl (Dilaudid) 0.5 mg PRN Q2HRS PRN IV pain Last administered on 10/13/16 06:27; Start 10/12/16 at 23:30 Atenolol (Tenormin) 50 mg DAILY PO ; Start 10/13/16 at 09:00 Atorvastatin Calcium (Lipitor) 20 mg HS PO ; Start 10/13/16 at 21:00 Lisinopril (Prinivil) 40 mg DAILY PO ; Start 10/13/16 at 09:00 Non-Formulary Medication 2 puff PRN Q4-6HRS IH ; Start 10/12/16 at 23:30; Status UNV Pantoprazole Sodium (Protonix) 40 mg DAILYAC PO ; Start 10/13/16 at 07:30 Insulin Detemir (Levemir) 40 units QHS SQ ; Start 10/12/16 at 23:45 Albuterol Sulfate (Ventolin Neb Soln) 2.5 mg PRN Q4HRS PRN NEB SHORTNESS OF BREATH; Start 10/12/16 at 23:45 Active Scripts Active Reported Atenolol 50 Mg Tablet 1 Tab PO DAILY Omeprazole 40 Mg Capsule.dr 1 Cap PO TIDAC Proair Hfa Inhaler (Albuterol Sulfate) 8.5 Gm Hfa.aer.ad 2 Puff IH PRN Q4-6HRS Atorvastatin Calcium 10 Mg Tablet 20 Mg PO DAILY Lantus Solostar (Insulin Glargine,Hum.rec.anlog) 100 Unit/1 Ml Insuln.pen 90 Unit SQ QHS Lisinopril 40 Mg Tablet 1 Tab PO DAILY Vitals/I & O Vital Sign - Last 24 Hours 10/12/16 10/12/16 10/12/16 10/12/16 15:49 15:57 16:24 16:27 Temp 98.3 98.3 Pulse 122 112 101 Resp 18 12 15 B/P 178/100 174/80 149/74 Pulse Ox 97 97 95 O2 Delivery Room Air Room Air Room Air Room Air 10/12/16 10/12/16 10/12/16 10/12/16 17:45 17:46 18:15 19:34 Pulse 99 112 95 Resp 14 14 B/P 186/136 203/119 143/75 Pulse Ox 96 97 95 96 O2 Delivery Room Air Room Air Room Air Room Air 10/12/16 10/12/16 10/12/16 10/12/16 19:44 20:00 20:11 20:48 Temp 98.1 98.1 Pulse 105 Resp 22 18 B/P 148/84 Pulse Ox 98 98 O2 Delivery Room Air Room Air Room Air 10/12/16 10/12/16 10/12/16 10/12/16 21:53 23:00 23:06 23:23 Temp 97.9 97.9 Pulse 98 Resp 16 18 16 18 B/P 153/47 Pulse Ox 98 99 98 98 O2 Delivery Room Air Room Air Room Air 10/13/16 10/13/16 10/13/16 10/13/16 00:10 02:09 03:00 04:02 Temp 98.1 98.1 Pulse 103 Resp 18 16 20 B/P 142/105 158/85 Pulse Ox 98 98 97 O2 Delivery Room Air Room Air Room Air 10/13/16 10/13/16 10/13/16 10/13/16 04:18 06:27 06:42 07:00 Temp 97.5 97.5 Pulse 117 Resp 16 18 16 16 B/P 134/94 Pulse Ox 97 97 97 92 O2 Delivery Room Air Room Air Room Air Room Air Intake and Output 10/12/16 10/12/16 10/13/16 15:00 23:00 07:00 Intake Total 1000 ml 1000 ml Balance 1000 ml 1000 ml OCTAVIA MARC MD Oct 13, 2016 08:04
[2016-10-13] MEDS: ATENOLOL 50 MG TABLET PO SCH (08:28)
[2016-10-13] MEDS: LISINOPRIL 40 MG TABLET. PO SCH (08:28)
--- NOTE | 2016-10-13 12:20 | PDOC2 ---
GI CONSULT Reason For Consult: Epigastric pain HPI: HPI: 45 y/o male admitted through the ER yesterday. GI history significant for cholecystectomy years ago for biliary dyskinesia (describes GB EF 19%), pancreatitis x3-4 last year w/o clear etiology (describes elevated lipase w/ LUQ pain and normal CTs in [place], [place]), appendectomy last year (abnormal appendix noted on one of the CTs performed for elevated lipase), C Diff x 2 after taking antibiotics for staph infection (first treated w/ vanco, second time treated w/ metronidazole due to [facility]), heartburn (on omeprazole BID per the advice of an ER physician) w/ previous EGD in [place], [place] , reportedly normal ~8 months ago. Has had intermittent epigastric pain for awhile that suddenly became more severe around 2:00 p.m. yesterday after eating fish and rice. Location is "just below sternum" w/ radiation straight through to his back and is worse w/ movement. Slightly different than pancreatitis ( and also different than nephrolithiasis pain). Has been NPO here but would like something to drink. Some nausea w/o vomiting. H/o irregular bowel habits leaning more toward loose stools (better here). No previous colonoscopy. No NSAID use due to allergy (swelling), takes Tylenol for chronic back pain. Rarely drinks alcohol. No previous colonoscopy. PMH: PMH: HTN, HLD, DM, asthma, nephrolithiasis s/p lithotripsy, GERD, pancreatitis, hepatic steatosis, C Diff x 2, cholecystectomy for biliary dyskinesia, appendectomy FH: Family History: Cancer (stomach cancer - paternal grandparent) Social History: Smoke: Quit ALCOHOL: rare Drugs: None ROS: GEN: +chills, sweats HEENT: Denies blurred vision, sore throat CV: Denies chest pain RESP: Denies shortness of air, cough GI: Per HPI : Denies hematuria, dysuria ENDO: +some intentional weight loss NEURO: Denies confusion, dizziness MSK: Denies weakness, joint pain/swelling SKIN: Denies jaundice, pruritus VItals: Vitals: Vital Signs Date Time Temp Pulse Resp B/P Pulse Ox O2 Delivery O2 Flow Rate FiO2 10/13/16 11:11 98.1 75 16 122/67 94 Room Air 98.1 Labs: Labs: Laboratory Tests Test 10/12/16 16:10 10/12/16 16:40 10/12/16 20:32 10/13/16 01:20 White Blood Count 14.9x10^3/uL (4.0-11.0) Red Blood Count 5.21x10^6/uL (4.30-5.70) Hemoglobin 16.1g/dL (13.0-17.5) Hematocrit 45.3% (39.0-53.0) Mean Corpuscular Volume 87fL (79-100) Mean Corpuscular Hemoglobin 31pg (25-35) Mean Corpuscular Hemoglobin Concent 36g/dL (31-37) Red Cell Distribution Width 13.0% (11.5-14.5) Platelet Count 303x10^3/uL (140-400) Neutrophils (%) (Auto) 77% (31-73) Lymphocytes (%) (Auto) 17% (24-48) Monocytes (%) (Auto) 5% (0-9) Eosinophils (%) (Auto) 1% (0-3) Basophils (%) (Auto) 1% (0-3) Neutrophils # (Auto) 11.4x10^3uL (1.8-7.7) Lymphocytes # (Auto) 2.5x10^3/uL (1.0-4.8) Monocytes # (Auto) 0.8x10^3/uL (0.0-1.1) Eosinophils # (Auto) 0.1x10^3/uL (0.0-0.7) Basophils # (Auto) 0.1x10^3/uL (0.0-0.2) Sodium Level 138mmol/L (136-145) Potassium Level 4.9mmol/L (3.5-5.1) Chloride Level 100mmol/L (98-107) Carbon Dioxide Level 23mmol/L (21-32) Anion Gap 15 (6-14) Blood Urea Nitrogen 20mg/dL (8-26) Creatinine 1.1mg/dL (0.7-1.3) Estimated GFR (Cockcroft-Gault) 72.7 BUN/Creatinine Ratio 18 (6-20) Glucose Level 299mg/dL (70-99) Calcium Level 10.4mg/dL (8.5-10.1) Total Bilirubin 0.4mg/dL (0.2-1.0) Aspartate Amino Transf (AST/SGOT) 36U/L (15-37) Alanine Aminotransferase (ALT/SGPT) 30U/L (16-63) Alkaline Phosphatase 91U/L (46-116) Troponin I Quantitative < 0.017ng/mL (0.000-0.055) < 0.017ng/mL (0.000-0.055) Total Protein 8.4g/dL (6.4-8.2) Albumin 3.6g/dL (3.4-5.0) Albumin/Globulin Ratio 0.8 (1.0-1.7) Lipase 103U/L (73-393) Ethyl Alcohol Level < 10mg/dL (0-10) Urine Collection Type Void Urine Color Yellow Urine Clarity Clear Urine pH 6.5 Urine Specific [place] 1.020 Urine Protein 30mg/dL (NEG-TRACE) Urine Glucose (UA) >=1000mg/dL (NEG) Urine Ketones (Stick) Tracemg/dL (NEG) Urine Blood Large (NEG) Urine Nitrite Negative (NEG) Urine Bilirubin Negative (NEG) Urine Urobilinogen Dipstick 0.2mg/dL (0.2 mg/dL) Urine Leukocyte Esterase Trace (NEG) Urine RBC >40/HPF (0-2) Urine WBC Rare/HPF (0-4) Urine Squamous Epithelial Cells Few/LPF Urine Bacteria 0/HPF (0-FEW) Urine Mucus Slight/LPF Glucose (Fingerstick) 172mg/dL (70-99) Test 10/13/16 06:55 10/13/16 10:35 Troponin I Quantitative < 0.017ng/mL (0.000-0.055) Glucose (Fingerstick) 141mg/dL (70-99) Allergies: Coded Allergies: ketorolac (Verified Allergy, Severe, ANAPHYLAXIS, 03/09/15) NSAIDS (Non-Steroidal Anti-Inflamma (Verified Allergy, Intermediate, ) gabapentin (Verified Allergy, Intermediate, 12/11/14) pt verbalized getting hives morphine (Verified Allergy, Intermediate, Hives, tolerates Dilaudid, ) vancomycin (Verified Allergy, Intermediate, 06/05/16) Medications: Current Medications Medications (Trade) Dose Ordered Sig/Alice Route PRN Reason Start Time Stop Time Status Last Admin Dose Admin Hydromorphone HCl 1 mg 1 mg 1X ONCE IV 10/12/16 16:30 10/12/16 16:31 DC 10/12/16 16:24 Sodium Chloride (Iv Sodium Chloride 0.9% 1000ml Bag) 1,000 ml @ 1,000 mls/hr 1X ONCE IV 10/12/16 16:00 10/12/16 16:59 DC 10/12/16 16:24 Ondansetron HCl (Zofran) 4 mg 1X ONCE IV 10/12/16 16:30 10/12/16 16:31 DC 10/12/16 16:23 Hydromorphone HCl (Dilaudid) 1 mg 1X ONCE IV 10/12/16 17:45 10/12/16 17:46 DC 10/12/16 17:46 Ondansetron HCl (Zofran) 4 mg PRN Q8HRS PRN IV NAUSEA/VOMITING 10/12/16 19:00 10/13/16 18:59 10/13/16 10:39 Fentanyl Citrate 50 mcg 50 mcg PRN Q1HR PRN IV PAIN 10/12/16 19:00 10/13/16 08:04 DC 10/12/16 23:06 Sodium Chloride (Iv Sodium Chloride 0.9% 1000ml Bag) 1,000 ml @ 150 mls/hr Q6H40M IV 10/12/16 18:57 10/13/16 18:56 10/13/16 08:29 Hydromorphone HCl (Dilaudid) 0.5 mg PRN Q2HRS PRN IV pain 10/12/16 23:30 10/13/16 09:25 DC 10/13/16 08:28 Atenolol (Tenormin) 50 mg DAILY PO 10/13/16 09:00 10/13/16 08:28 Lisinopril (Prinivil) 40 mg DAILY PO 10/13/16 09:00 10/13/16 08:28 Hydromorphone HCl (Dilaudid) 1 mg PRN Q2HRS PRN IV pain 10/13/16 09:30 10/13/16 10:26 Imaging: Imaging: CT A/P w/o contrast FINDINGS Liver, spleen, pancreas, and bilateral adrenal glands are unremarkable. Gallbladder is absent. Bilateral ureters are free of stone destruction. No left renal stones are seen. Right kidney demonstrates punctate nonobstructive nephrolith. Urinary bladder is unremarkable. No bowel obstruction or inflammation is seen. Appendix is absent. No free air or free fluid is seen in the abdomen or pelvis. Degenerative changes are present in spine. IMPRESSION 1. No acute abnormality identified in the abdomen or pelvis. 2. Punctate nonobstructive right nephrolith. PE: GEN: NAD HEENT: Atraumatic, PERRL LUNGS: CTAB HEART: RRR ABD: BS quiet, obese, soft, epigastric tenderness, less so LUQ toward LLQ EXTREMITY: No edema SKIN: No rashes, no jaundice NEURO/PSYCH: A & O 3 A/P: A/P: Epigastric pain -intermittent pain for awhile, much more severe yesterday after eating lunch -CT w/o contrast unrevealing (nonobstructive right nephrolith) -no NSAID use H/o pancreatitis w/ unclear etiology -3-4 episodes last year in [place], [place] -recalls LUQ pain w/ elevated lipase and normal imaging -s/p cholecystectomy years prior to this for biliary dyskinesia -rarely consumes alcohol -lipase, LFTs normal here Heartburn -on PPI BID at home, reports normal EGD ~8 months ago H/o C Diff x 2, irregular bowel habits -intermittently has loose stools CRC screen -no previous colonoscopy -- Check MRCP and lipid panel. If unrevealing, consider outpt [facility] ([facility] or [facility]). TERRA GOODRICH Oct 13, 2016 12:19
--- NOTE | 2016-10-13 16:32 | RAD ---
EXAM: MRCP without contrast. HISTORY: Epigastric pain. Pancreatitis. TECHNIQUE: Multiplanar and multisequence magnetic resonance imaging of the abdomen was performed. Three-dimensional and two-dimensional images were obtained.. COMPARISON: CT dated 10/12/2016. FINDINGS: There is mild hepatomegaly and minimal hepatic steatosis. No focal hepatic lesion is seen. The gallbladder is surgically absent. No filling defect is seen within the common bile duct. There is a prominent pancreatic duct without clear dilatation. No focal pancreatic lesion is seen. There is mild splenomegaly, measuring 15.0 cm. The adrenal glands are unremarkable. There is a 3 mm suspected exophytic cyst within the upper pole of the right kidney. There are degenerative changes involving the lumbar spine. IMPRESSION: 1. Mild hepatosplenomegaly. There is suspected minimal hepatic steatosis. No focal hepatic lesion is seen. 2. Cholecystomy. No obstructing biliary or pancreatic ductal lesion is seen. 3. Suspect a tiny right renal cyst.
[2016-10-13] MEDS: ATORVASTATIN CALCIUM 20 MG TABLET PO SCH (20:07)
[2016-10-13] MEDS: INSULIN DETEMIR 300 UNITS/3 ML INSULN.PEN. SQ SCH (20:12)
[2016-10-14] MEDS: HYDROMORPHONE 2 MG/ML VIAL. IV PRN ×10 (00:17→23:29)
[2016-10-14 03:00] VITALS: BP 110/74
[2016-10-14 07:00] VITALS: BP 125/82
[2016-10-14 07:20] LABS: CHOLESTEROL/HDL RATIO 5.3
[2016-10-14] MEDS: INSULIN ASPART 300 UNITS/3 ML INSULN.PEN SQ SCH ×3 (08:00→18:41)
[2016-10-14] MEDS: LISINOPRIL 40 MG TABLET. PO SCH (09:50)
[2016-10-14] MEDS: PANTOPRAZOLE IV PUSH 40 MG VIAL. IVP SCH (09:51)
[2016-10-14] MEDS: ATENOLOL 50 MG TABLET PO SCH (09:52)
--- NOTE | 2016-10-14 09:57 | PDOC ---
PROGRESS NOTES Chief Complaint Chief Complaint CC: abdominal pain A/P Acute epigastric abdominal pain unclear etiology Possible recurrent pancreatitis Prior hx of Pancreatitis DM HTN Plan Pain control with iv Dilaudid Avoid CO 2 narcosis GI following. advance diet as tolerated. SSI HTN controlled MRCP not acute findings. Prognosis guarded. IV Protonix prn Lipitor History of Present Illness History of Present Illness pain 8/10, no fever no emesis Vitals Vitals Vital Signs Date Time Temp Pulse Resp B/P Pulse Ox O2 Delivery O2 Flow Rate FiO2 10/14/16 09:52 125/82 10/14/16 09:50 76 10/14/16 09:49 20 93 Room Air 10/14/16 07:00 98.3 98.3 Physical Exam General: Alert, Oriented X3, Cooperative Heart: Normal S1, Normal S2 Lungs: Clear Abdomen: Normal bowel sounds, Soft, Other (EPI TENDERNESS) Skin: No rashes Labs LABS Laboratory Tests Test 10/13/16 10:35 10/13/16 15:09 10/13/16 16:43 10/13/16 21:00 Glucose (Fingerstick) 141mg/dL (70-99) 140mg/dL (70-99) 127mg/dL (70-99) 270mg/dL (70-99) Test 10/14/16 06:20 Triglycerides Level 260mg/dL (0-150) Cholesterol Level 191mg/dL (0-200) LDL Cholesterol, Calculated 103mg/dL (0-100) VLDL Cholesterol, Calculated 52mg/dL (0-40) HDL Cholesterol 36mg/dL (40-60) Cholesterol/HDL Ratio 5.3 Assessment and Plan Assessmemt and Plan Problems Medical Problems: (1) Abdominal pain Status: Acute Problems: Comment Review of Relevant I have reviewed the following items susan (where applicable) has been applied. Labs Laboratory Tests Test 10/12/16 16:10 10/12/16 16:40 10/12/16 20:30 10/12/16 20:32 White Blood Count 14.9x10^3/uL (4.0-11.0) Red Blood Count 5.21x10^6/uL (4.30-5.70) Hemoglobin 16.1g/dL (13.0-17.5) Hematocrit 45.3% (39.0-53.0) Mean Corpuscular Volume 87fL (79-100) Mean Corpuscular Hemoglobin 31pg (25-35) Mean Corpuscular Hemoglobin Concent 36g/dL (31-37) Red Cell Distribution Width 13.0% (11.5-14.5) Platelet Count 303x10^3/uL (140-400) Neutrophils (%) (Auto) 77% (31-73) Lymphocytes (%) (Auto) 17% (24-48) Monocytes (%) (Auto) 5% (0-9) Eosinophils (%) (Auto) 1% (0-3) Basophils (%) (Auto) 1% (0-3) Neutrophils # (Auto) 11.4x10^3uL (1.8-7.7) Lymphocytes # (Auto) 2.5x10^3/uL (1.0-4.8) Monocytes # (Auto) 0.8x10^3/uL (0.0-1.1) Eosinophils # (Auto) 0.1x10^3/uL (0.0-0.7) Basophils # (Auto) 0.1x10^3/uL (0.0-0.2) Sodium Level 138mmol/L (136-145) Potassium Level 4.9mmol/L (3.5-5.1) Chloride Level 100mmol/L (98-107) Carbon Dioxide Level 23mmol/L (21-32) Anion Gap 15 (6-14) Blood Urea Nitrogen 20mg/dL (8-26) Creatinine 1.1mg/dL (0.7-1.3) Estimated GFR (Cockcroft-Gault) 72.7 BUN/Creatinine Ratio 18 (6-20) Glucose Level 299mg/dL (70-99) Calcium Level 10.4mg/dL (8.5-10.1) Total Bilirubin 0.4mg/dL (0.2-1.0) Aspartate Amino Transf (AST/SGOT) 36U/L (15-37) Alanine Aminotransferase (ALT/SGPT) 30U/L (16-63) Alkaline Phosphatase 91U/L (46-116) Troponin I Quantitative < 0.017ng/mL (0.000-0.055) Total Protein 8.4g/dL (6.4-8.2) Albumin 3.6g/dL (3.4-5.0) Albumin/Globulin Ratio 0.8 (1.0-1.7) Lipase 103U/L (73-393) Ethyl Alcohol Level < 10mg/dL (0-10) Urine Collection Type Void Urine Color Yellow Urine Clarity Clear Urine pH 6.5 Urine Specific [place] 1.020 Urine Protein 30mg/dL (NEG-TRACE) Urine Glucose (UA) >=1000mg/dL (NEG) Urine Ketones (Stick) Tracemg/dL (NEG) Urine Blood Large (NEG) Urine Nitrite Negative (NEG) Urine Bilirubin Negative (NEG) Urine Urobilinogen Dipstick 0.2mg/dL (0.2 mg/dL) Urine Leukocyte Esterase Trace (NEG) Urine RBC >40/HPF (0-2) Urine WBC Rare/HPF (0-4) Urine Squamous Epithelial Cells Few/LPF Urine Bacteria 0/HPF (0-FEW) Urine Mucus Slight/LPF Nasal Screen MRSA (PCR) Negative (Negative) Glucose (Fingerstick) 172mg/dL (70-99) Test 10/13/16 01:20 10/13/16 06:55 10/13/16 10:35 10/13/16 15:09 Troponin I Quantitative < 0.017ng/mL (0.000-0.055) < 0.017ng/mL (0.000-0.055) Glucose (Fingerstick) 141mg/dL (70-99) 140mg/dL (70-99) Test 10/13/16 16:43 10/13/16 21:00 10/14/16 06:20 Glucose (Fingerstick) 127mg/dL (70-99) 270mg/dL (70-99) Triglycerides Level 260mg/dL (0-150) Cholesterol Level 191mg/dL (0-200) LDL Cholesterol, Calculated 103mg/dL (0-100) VLDL Cholesterol, Calculated 52mg/dL (0-40) HDL Cholesterol 36mg/dL (40-60) Cholesterol/HDL Ratio 5.3 Laboratory Tests Test 10/13/16 10:35 10/13/16 15:09 10/13/16 16:43 10/13/16 21:00 Glucose (Fingerstick) 141mg/dL (70-99) 140mg/dL (70-99) 127mg/dL (70-99) 270mg/dL (70-99) Test 10/14/16 06:20 Triglycerides Level 260mg/dL (0-150) Cholesterol Level 191mg/dL (0-200) LDL Cholesterol, Calculated 103mg/dL (0-100) VLDL Cholesterol, Calculated 52mg/dL (0-40) HDL Cholesterol 36mg/dL (40-60) Cholesterol/HDL Ratio 5.3 Microbiology 10/12/16 Urine Culture - Preliminary, Resulted 10/12/16 Urine Culture Result 1 (SUDEEP) - Preliminary, Resulted Medications Current Medications Hydromorphone HCl 1 mg 1 mg 1X ONCE IV Last administered on 10/12/16 16:24; Start 10/12/16 at 16:30; Stop 10/12/16 at 16:31; Status DC Sodium Chloride (Iv Sodium Chloride 0.9% 1000ml Bag) 1,000 ml @ 1,000 mls/hr 1X ONCE IV Last administered on 10/12/16 16:24; Start 10/12/16 at 16:00; Stop 10/12/16 at 16:59; Status DC Ondansetron HCl (Zofran) 4 mg 1X ONCE IV Last administered on 10/12/16 16:23 ; Start 10/12/16 at 16:30; Stop 10/12/16 at 16:31; Status DC Hydromorphone HCl (Dilaudid) 1 mg 1X ONCE IV Last administered on 10/12/16 17 :46; Start 10/12/16 at 17:45; Stop 10/12/16 at 17:46; Status DC Ondansetron HCl (Zofran) 4 mg PRN Q8HRS PRN IV NAUSEA/VOMITING Last administered on 10/13/16 10:39; Start 10/12/16 at 19:00; Stop 10/13/16 at 18:59 ; Status DC Fentanyl Citrate 50 mcg 50 mcg PRN Q1HR PRN IV PAIN Last administered on 23:06; Start 10/12/16 at 19:00; Stop 10/13/16 at 08:04; Status DC Sodium Chloride (Iv Sodium Chloride 0.9% 1000ml Bag) 1,000 ml @ 150 mls/hr Q6H40M IV Last administered on 10/13/16 14:57; Start 10/12/16 at 18:57; Stop 10/13/16 at 18:56; Status DC Insulin Aspart (Novolog) 0-7 UNITS TIDWMEALS SQ ; Start 10/13/16 at 08:00 Dextrose 12.5 gm PRN Q15MIN PRN IV SEE COMMENTS; Start 10/12/16 at 19:00 Hydromorphone HCl (Dilaudid) 0.5 mg PRN Q2HRS PRN IV pain Last administered on 10/13/16 08:28; Start 10/12/16 at 23:30; Stop 10/13/16 at 09:25; Status DC Atenolol (Tenormin) 50 mg DAILY PO Last administered on 10/14/16 09:52; Start 10/13/16 at 09:00 Atorvastatin Calcium (Lipitor) 20 mg HS PO ; Start 10/13/16 at 21:00 Lisinopril (Prinivil) 40 mg DAILY PO Last administered on 10/14/16 09:50; Start 10/13/16 at 09:00 Non-Formulary Medication 2 puff PRN Q4-6HRS IH ; Start 10/12/16 at 23:30; Status UNV Pantoprazole Sodium (Protonix) 40 mg DAILYAC PO ; Start 10/13/16 at 07:30; Stop 10/13/16 at 16:15; Status DC Insulin Detemir (Levemir) 40 units QHS SQ ; Start 10/12/16 at 23:45 Albuterol Sulfate (Ventolin Neb Soln) 2.5 mg PRN Q4HRS PRN NEB SHORTNESS OF BREATH; Start 10/12/16 at 23:45 Hydromorphone HCl (Dilaudid) 1 mg PRN Q2HRS PRN IV pain Last administered on 14:55; Start 10/13/16 at 09:30; Stop 10/13/16 at 15:18; Status DC Hydromorphone HCl (Dilaudid) 1.5 mg PRN Q2HRS PRN IV pain Last administered on 10/14/16 09:49; Start 10/13/16 at 15:30 Pantoprazole Sodium (Protonix Vial) 40 mg DAILYAC IVP Last administered on 10/14 09:51; Start 10/14/16 at 07:30 Active Scripts Active Reported Atenolol 50 Mg Tablet 1 Tab PO DAILY Omeprazole 40 Mg Capsule.dr 1 Cap PO TIDAC Proair Hfa Inhaler (Albuterol Sulfate) 8.5 Gm Hfa.aer.ad 2 Puff IH PRN Q4-6HRS Atorvastatin Calcium 10 Mg Tablet 20 Mg PO DAILY Lantus Solostar (Insulin Glargine,Hum.rec.anlog) 100 Unit/1 Ml Insuln.pen 90 Unit SQ QHS Lisinopril 40 Mg Tablet 1 Tab PO DAILY Vitals/I & O Vital Sign - Last 24 Hours 10/13/16 10/13/16 10/13/16 10/13/16 10:26 11:11 12:47 13:17 Temp 98.1 98.1 Pulse 75 Resp 16 B/P 122/67 Pulse Ox 96 94 94 94 O2 Delivery Room Air Room Air Room Air Room Air 10/13/16 10/13/16 10/13/16 10/13/16 14:55 15:02 17:22 19:00 Temp 98.1 97.7 98.1 97.7 Pulse 71 85 Resp 16 20 B/P 114/66 125/71 Pulse Ox 94 95 95 96 O2 Delivery Room Air Room Air Room Air Room Air 10/13/16 10/13/16 10/13/16 10/13/16 20:00 20:07 22:13 23:00 Temp 98.3 98.3 Pulse 83 Resp 18 18 20 B/P 126/83 Pulse Ox 96 91 O2 Delivery Room Air Room Air Room Air Room Air 10/14/16 10/14/16 10/14/16 10/14/16 00:17 02:24 03:00 03:30 Temp 98.2 98.2 Pulse 78 Resp 18 18 20 18 B/P 110/74 Pulse Ox 93 O2 Delivery Room Air Room Air Room Air 10/14/16 10/14/16 10/14/16 10/14/16 04:30 06:47 07:00 07:17 Temp 98.3 98.3 Pulse 80 Resp 18 18 19 B/P 125/82 Pulse Ox 93 93 94 93 O2 Delivery Room Air Room Air Room Air Room Air 10/14/16 10/14/16 10/14/16 09:49 09:50 09:52 Pulse 76 Resp 20 B/P 125/82 125/82 Pulse Ox 93 O2 Delivery Room Air Intake and Output 10/13/16 10/13/16 10/14/16 15:00 23:00 07:00 Intake Total 840 ml 3477 ml Balance 840 ml 3477 ml OCTAVIA MARC MD Oct 14, 2016 09:56
[2016-10-14 11:00] VITALS: BP 126/81
--- NOTE | 2016-10-14 13:39 | PDOC ---
Subjective: Subjective: Pain a little better. Tried clears w/ some epigastric discomfort after. No n/ v. Asks when he can DC - still on IV pain meds. Objective: Vital Signs: Vital Signs Date Time Temp Pulse Resp B/P Pulse Ox O2 Delivery O2 Flow Rate FiO2 10/14/16 12:52 Room Air 10/14/16 11:00 98.1 85 20 126/81 92 98.1 Labs: Laboratory Tests Test 10/13/16 15:09 10/13/16 16:43 10/13/16 21:00 10/14/16 06:20 Glucose (Fingerstick) 140mg/dL 127mg/dL 270mg/dL Triglycerides Level 260mg/dL Cholesterol Level 191mg/dL LDL Cholesterol, Calculated 103mg/dL VLDL Cholesterol, Calculated 52mg/dL HDL Cholesterol 36mg/dL Cholesterol/HDL Ratio 5.3 Test 10/14/16 10:41 Glucose (Fingerstick) 291mg/dL PE: GEN: NAD LUNGS: CTAB HEART: RRR ABD: less so, but still epigastric tenderness NEURO/PSYCH: A & O 3 A/P: Epigastric pain - mildly improved -CT w/o contrast and MRCP unrevealing -recurrent pancreatitis w/o clear etiology, lipase normal, s/p cholecystectomy, HLD on statin -tolerating clears w/ some discomfort -heartburn on PPI BID w/ normal EGD <1 year ago -- He asks to DC - okay per GI. Will refer for outpt [facility]. TERRA GOODRICH Oct 14, 2016 13:39 CYRUS JO MD Oct 14, 2016 14:09
[2016-10-14 15:00] VITALS: BP 130/86
[2016-10-14 19:00] VITALS: BP 138/80
[2016-10-14] MEDS: ATORVASTATIN CALCIUM 20 MG TABLET PO SCH (20:35)
[2016-10-14] MEDS: INSULIN DETEMIR 300 UNITS/3 ML INSULN.PEN. SQ SCH (20:47)
[2016-10-14] MEDS ORDERED: ATORVASTATIN CALCIUM 20 MG TABLET PO SCH (21:00)
[2016-10-14 23:00] VITALS: BP_SYST 104; BP_SYST 123; BP_DIAS 62; BP_DIAS 69
[2016-10-14] MEDS ORDERED: HYDROMORPHONE 2 MG/ML VIAL. ONE (23:23)
[2016-10-15] MEDS ORDERED: HYDROMORPHONE 2 MG/ML VIAL. ONE ×2 (02:44→05:02)
[2016-10-15] MEDS: HYDROMORPHONE 2 MG/ML VIAL. IV PRN ×4 (02:48→10:09)
[2016-10-15 03:24] VITALS: BP 140/81
[2016-10-15] MEDS ORDERED: ATENOLOL 50 MG TABLET. PO SCH (05:42)
[2016-10-15 07:29] VITALS: BP 148/79
[2016-10-15] MEDS: PANTOPRAZOLE IV PUSH 40 MG VIAL. IVP SCH (07:50)
[2016-10-15] MEDS: INSULIN ASPART 300 UNITS/3 ML INSULN.PEN SQ SCH ×2 (07:55→12:28)
[2016-10-15] MEDS: LISINOPRIL 40 MG TABLET. PO SCH (09:13)
[2016-10-15] MEDS ORDERED: HYDROCODONE/APAP 7.5/325MG TABLET. PO PRN (10:45)
[2016-10-15] MEDS ORDERED: OXYCODONE/APAP 7.5/325 TABLET. PO PRN (11:00)
[2016-10-15 11:13] VITALS: BP 140/83
[2016-10-15] MEDS ORDERED: OXYC1TAB8 PO (11:17)
--- NOTE | 2016-10-15 12:02 | PDOC ---
Subjective: Subjective: A little better today although still has pain. Tolerating clears. Says changing to PO pain meds, advancing diet, then possible DC. Concerned a doctor won't give him enough pain meds as outpt to get him through to [facility]. Owes money to PCP. Objective: Vital Signs: Vital Signs Date Time Temp Pulse Resp B/P Pulse Ox O2 Delivery O2 Flow Rate FiO2 10/15/16 11:13 97.7 71 18 140/83 100 Room Air 97.7 Labs: Laboratory Tests Test 10/14/16 16:07 10/14/16 20:39 10/15/16 07:34 10/15/16 11:24 Glucose (Fingerstick) 269mg/dL 229mg/dL 253mg/dL 256mg/dL PE: GEN: NAD LUNGS: CTAB HEART: RRR ABD: obese, epigastric discomfort, BS+ NEURO/PSYCH: A & O 3 A/P: Epigastric pain -CT w/o contrast and MRCP unrevealing -recurrent pancreatitis w/o clear etiology, lipase normal, s/p cholecystectomy, HLD on statin -tolerating clears w/ some discomfort -heartburn on PPI BID w/ normal EGD <1 year ago -- Okay to DC when pain controlled w/ oral meds and tolerating PO. Will refer for EUS at . TERRA GOODRICH Oct 15, 2016 12:02
[2016-10-15] MEDS ORDERED: ONDANSETRON PF 4 MG/2 ML VIAL. IV PRN (14:15)
[2016-10-15] MEDS ORDERED: HYDROMORPHONE 2 MG/ML VIAL. IVP PRN (14:15)
--- NOTE | 2016-10-15 16:11 | PDOC3 ---
Discharge Summary* Date of Discharge: Oct 15, 2016 Admitting Diagnosis Problems Medical Problems: (1) Abdominal pain Status: Acute Final Diagnosis Problems Acute epigastric abdominal pain unclear etiology Possible recurrent pancreatitis Prior hx of Pancreatitis DM HTN Brief Hospital Course Mr. Dean is a 45 old [sex] who presented with male admitted to the hospital for abdominal pain, he had hx of pancreatitis, MRCP didn't show any acute findings, he was evaluated by Dr Burrows. Pain has been controlled with IV Dilaudid, later changed to oral medications. Today he has been tolerating diet well, so, he deemed stable to go home and follow up with Dr Burrwosfor EUS as out pt. exam GENERAL: No apparent distress. Alert and oriented. HEENT: Head normocephalic, atraumatic. NECK: Supple LUNGS: Clear to auscultation. HEART: RRR, S1, S2 present, pulses intact ABDOMEN: Soft, positive bowel sounds. CONDITION AT DISCHARGE: Stable Scheduled Albuterol Sulfate (Proair Hfa Inhaler) 2 PUFF IH PRN Q4-6HRS (Reported) Atenolol (Atenolol) 1 TAB PO DAILY (Reported) Atorvastatin Calcium (Atorvastatin Calcium) 20 MG PO DAILY (Reported) Insulin Glargine,Hum.rec.anlog (Lantus Solostar) 90 UNIT SQ QHS (Reported) Lisinopril (Lisinopril) 1 TAB PO DAILY (Reported) Omeprazole (Omeprazole) 1 CAP PO TIDAC (Reported) Scheduled PRN Oxycodone Hcl/Acetaminophen (Oxycodon-Acetaminophen 7.5-325) 1 TAB PO PRN Q4HRS PRN PRN PAIN Time Spent Total time spent with patient [ 33] minutes for coordination of care, counseling , and education. OCTAVIA MARC MD Oct 15, 2016 16:11
== END 2016-10-15 15:03 | disposition home or self-care (01) | DRG 439 ==
LOC: ER 15:40 → 5 NORTH 18:59
PROVIDERS: ADMIT Internal Medicine Hematology & Oncology; ATTEND Internal Medicine Hematology & Oncology
DX: K86.1 Other chronic pancreatitis (principal); Z68.41 Body mass index [BMI] 40.0-44.9, adult; E11.9 Type 2 diabetes mellitus without complications; E66.01 Morbid (severe) obesity due to excess calories; E78.5 Hyperlipidemia, unspecified; I10 Essential (primary) hypertension; I25.10 Atherosclerotic heart disease of native coronary artery without angina pectoris; J45.909 Unspecified asthma, uncomplicated; K76.0 Fatty (change of) liver, not elsewhere classified; K21.9 Gastro-esophageal reflux disease without esophagitis; Z80.0 Family history of malignant neoplasm of digestive organs; Z82.49 Family history of ischemic heart disease and other diseases of the circulatory system; Z87.442 Personal history of urinary calculi; Z83.3 Family history of diabetes mellitus; Z90.49 Acquired absence of other specified parts of digestive tract; Z88.1 Allergy status to other antibiotic agents; Z88.5 Allergy status to narcotic agent; Z88.8 Allergy status to other drugs, medicaments and biological substances
CPT/HCPCS: 36415; 74176; 74181; 80053; 80061; 81001; 82947; 83690; 84484; 85027; 87086; 87641; 93005; 94250; 94760; 96361; 96374; 96375; 96376; C9113; G0480; J1170; J1815; J2405; J3010; J7030; 99285-25

== ENCOUNTER 2017-01-05 23:06 | Inpatient (IN) | payer SELFPAY ==
[~2017-01-05] VITALS: Ht 172.7 cm; Wt 133.8 kg
[~2017-01-05 23:06] MED LIST changes: +ATEN50TA PO; -HYDR-2666 PO; +HYDR-2758 PO; +METF-620 PO; -METF10002 PO; -OMEP20TA PO; +OMEP20TA8 PO; +OMEP40CA5 PO; +OXYC1TAB8 PO
[2017-01-05 23:41] LABS: BASO # 0.1 x10^3/uL (0.0-0.2); BASO % 1 % (0-3); EOS % 1 % (0-3); HEMATOCRIT 42.5 % (39.0-53.0); HEMOGLOBIN 14.8 g/dL (13.0-17.5); LYMPH # 3.2 x10^3/uL (1.0-4.8); LYMPH % 24 % (24-48); MEAN CORPUSCULAR HEMOGLOBIN 31 pg (25-35); MEAN CORPUSCULAR HGB CONC 35 g/dL (31-37); MEAN CORPUSCULAR VOLUME 90 fL (79-100); MONO % 6 % (0-9); NEUT % 67 % (31-73); PLATELET COUNT 256 x10^3/uL (140-400); RED BLOOD COUNT 4.75 x10^6/uL (4.30-5.70); RED CELL DISTRIBUTION WIDTH 13.4 % (11.5-14.5)
[2017-01-05 23:54] LABS: CALCIUM 9.7 mg/dL (8.5-10.1); GFR 80.8; POTASSIUM 4.2 mmol/L (3.5-5.1)
[2017-01-05 23:59] LABS: ALBUMIN 3.3 g/dL (3.4-5.0); ALBUMIN/GLOBULIN RATIO 0.8 (1.0-1.7); TOTAL BILIRUBIN 0.3 mg/dL (0.2-1.0); TOTAL PROTEIN 7.3 g/dL (6.4-8.2)
[2017-01-06] MEDS ORDERED: MORPHINE SULFATE 4 MG/ML DISP.SYRIN. IV ONE (00:45)
[2017-01-06] MEDS ORDERED: ONDANSETRON PF 4 MG/2 ML VIAL. ONE (00:45)
[2017-01-06] MEDS ORDERED: MORPHINE SULFATE 4 MG/ML DISP.SYRIN. ONE (00:45)
[2017-01-06] MEDS ORDERED: HYDROmorphone 2 MG/ML VIAL ONE (00:55)
[2017-01-06] MEDS ORDERED: ONDANSETRON PF 4 MG/2 ML VIAL. IV ONE (01:00)
[2017-01-06] MEDS ORDERED: HYDROmorphone 2 MG/ML VIAL IV ONE (01:15)
[2017-01-06] MEDS ORDERED: ACETAMINOPHEN 325 MG TABLET. PO PRN (02:00)
[2017-01-06] MEDS ORDERED: ONDANSETRON PF 4 MG/2 ML VIAL. IV PRN (02:00)
[2017-01-06] MEDS: fentaNYL PF VIAL 100 MCG/2 ML VIAL IV PRN ×4 (02:22→13:29)
[2017-01-06] MEDS: NITROGLYCERIN SUBLINGUAL 0.4 MG BOTTLE OF 25. SL PRN ×2 (02:22→03:47)
[2017-01-06] MEDS: IV NORMAL SALINE 1000ML BAG 1,000 ML IV SCH ×4 (02:23→18:37)
[2017-01-06 04:15] VITALS: BP 153/91
[2017-01-06] MEDS ORDERED: METO25TA9 PO (04:39)
--- NOTE | 2017-01-06 04:52 | PHYS DOC ---
Past Medical History Past Medical History: Asthma, CAD, Diabetes-Type II, Hypertension, Kidney Stone , MRSA, Pancreatitis, Other Additional Past Medical Histor: STAPH INFECTION Past Surgical History: Appendectomy, Cholecystectomy, Other Additional Past Surgical Histo: Lithotripsy x 3, Abscess on back; heart cath ( NO STENTS) Alcohol Use: Rarely Drug Use: None Adult General Chief Complaint Chief Complaint: CHEST PAIN HPI HPI Patient is a 46 year old gentleman with a history significant for hypertension diabetes as well as asthma status post a cholecystectomy and appendectomy presents here today complaining of midsternal chest pain times 9 PM. Patient reports she took Mylanta because he thought it might be reflux however there was no improvement. Patient reports that the pain radiates his back up to his teeth and his left shoulder. Patient denies any URI symptoms. Patient has a nausea vomiting or diarrhea. Patient has any fevers shakes chills. Patient has a dysuria frequency or urgency. Patient reports he is diaphoretic with the pain. He is short of breath with the pain. Patient reports pain increases slightly with exertion. She reports she had a cardiac catheterization approximate 5 years ago and was told that he had a 40% lesion. Patient was told that he would not get a stent or a balloon was lesion with at least 70%. Patient's physical exam the ER was unremarkable except for some mild tenderness to palpation to his mid sternum. Patient's heart was regular rate and rhythm. Lungs were clear. Abdomen was soft nontender no rebound or guarding. Patient's ER hospital course was significant for normal labs. His EKG showed normal sinus rhythm with no acute STEMI. Patient's troponin was within normal limits. Patient did receive Dilaudid in the ED with some improvement in his pain. Assessment and plan 46-year-old gentleman who presents here today with chest pain. Patient does have chronic risk factors significant for hypertension and diabetes. Patient did have an abnormal cardiac catheter approximate 5 years ago with a 40% lesion. Will be admitted to the hospital for further evaluation of his chest pain and discomfort going to his back. Patient's d-dimer was negative so no CTA was ordered. Review of Systems Review of Systems Constitutional: Denies fever or chills [] Eyes: Denies change in visual acuity, redness, or eye pain [] All other review systems are negative except as documented in the history of present illness portion. Allergies Allergies Allergies Coded Allergies Type Severity Reaction Last Updated Verified ketorolac Allergy Severe ANAPHYLAXIS 03/09/15 Yes NSAIDS (Non-Steroidal Anti-Inflamma Allergy Intermediate 10/03/14 Yes gabapentin Allergy Intermediate 12/11/14 Yes morphine Allergy Intermediate Hives, tolerates Dilaudid 12/10/14 Yes vancomycin Allergy Intermediate 06/05/16 Yes Physical Exam Physical Exam Constitutional: Well developed, well nourished, no acute distress, non-toxic appearance. [] HENT: Normocephalic, atraumatic, bilateral external ears normal, oropharynx moist, no oral exudates, nose normal. [] Eyes: PERRLA, EOMI, conjunctiva normal, no discharge. [] Neck: Normal range of motion, no tenderness, supple, no stridor. [] Cardiovascular:Heart rate regular rhythm, Lungs & Thorax: Bilateral breath sounds clear to auscultation [] Abdomen: Bowel sounds normal, soft, no tenderness, no masses, no pulsatile masses. [] Skin: Warm, dry, no erythema, no rash. [] Back: No tenderness, no CVA tenderness. [] Extremities: No tenderness, no cyanosis, no clubbing, ROM intact, no edema. [] Neurologic: Alert and oriented X 3, normal motor function, normal sensory function, no focal deficits noted. [] Psychologic: Affect normal, judgement normal, mood normal. [] Current Patient Data Vital Signs Vital Signs Date Time Temp Pulse Resp B/P (MAP) Pulse Ox O2 Delivery O2 Flow Rate FiO2 01/06/17 00:31 96 144/71 (95) 97 Room Air 01/05/17 23:16 98.7 18 98.7 Lab Values Laboratory Tests Test 01/05/17 23:30 White Blood Count 13.0 x10^3/uL (4.0-11.0) H Red Blood Count 4.75 x10^6/uL (4.30-5.70) Hemoglobin 14.8 g/dL (13.0-17.5) Hematocrit 42.5 % (39.0-53.0) Mean Corpuscular Volume 90 fL (79-100) Mean Corpuscular Hemoglobin 31 pg (25-35) Mean Corpuscular Hemoglobin Concent 35 g/dL (31-37) Red Cell Distribution Width 13.4 % (11.5-14.5) Platelet Count 256 x10^3/uL (140-400) Neutrophils (%) (Auto) 67 % (31-73) Lymphocytes (%) (Auto) 24 % (24-48) Monocytes (%) (Auto) 6 % (0-9) Eosinophils (%) (Auto) 1 % (0-3) Basophils (%) (Auto) 1 % (0-3) Neutrophils # (Auto) 8.7 x10^3uL (1.8-7.7) H Lymphocytes # (Auto) 3.2 x10^3/uL (1.0-4.8) Monocytes # (Auto) 0.8 x10^3/uL (0.0-1.1) Eosinophils # (Auto) 0.2 x10^3/uL (0.0-0.7) Basophils # (Auto) 0.1 x10^3/uL (0.0-0.2) D-Dimer (Mile) 0.41 ug/mlFEU (0.00-0.50) Sodium Level 138 mmol/L (136-145) Potassium Level 4.2 mmol/L (3.5-5.1) Chloride Level 102 mmol/L (98-107) Carbon Dioxide Level 27 mmol/L (21-32) Anion Gap 9 (6-14) Blood Urea Nitrogen 15 mg/dL (8-26) Creatinine 1.0 mg/dL (0.7-1.3) Estimated GFR (Cockcroft-Gault) 80.8 BUN/Creatinine Ratio 15 (6-20) Glucose Level 125 mg/dL (70-99) H Calcium Level 9.7 mg/dL (8.5-10.1) Total Bilirubin 0.3 mg/dL (0.2-1.0) Aspartate Amino Transferase (AST) 16 U/L (15-37) Alanine Aminotransferase (ALT) 21 U/L (16-63) Alkaline Phosphatase 91 U/L (46-116) Troponin I Quantitative < 0.017 ng/mL (0.000-0.055) VJ-Vou-N-Type Natriuretic Peptide 33 pg/mL (0-124) Total Protein 7.3 g/dL (6.4-8.2) Albumin 3.3 g/dL (3.4-5.0) L Albumin/Globulin Ratio 0.8 (1.0-1.7) L Laboratory Tests 01/05/17 23:30 Laboratory Tests 01/05/17 23:30 EKG EKG [] Radiology/Procedures Radiology/Procedures [] Course & Med Decision Making Course & Med Decision Making Pertinent Labs and Imaging studies reviewed. (See chart for details) [] Dragon Disclaimer Dragon Disclaimer This electronic medical record was generated, in whole or in part, using a voice recognition dictation system. Departure Departure Impression: Primary Impression: Chest pain Additional Impression: Unstable angina Disposition: ADMITTED INPATIENT Admitting Physician: Other (reusch) Condition: STABLE Referrals: UNKNOWN PCP NAME (PCP) Problem Qualifiers SIRI ROTHMAN MD Jan 06, 2017 04:52
--- NOTE | 2017-01-06 05:54 | ACF ---
Admission Forms Criteria CHEST PAIN Clinical Indications for Admission to Inpatient Care (Place 'X' for any and all applicable criteria): Admission is indicated for chest pain and ANY ONE of the following(1)(2)(3)(4)(5 ): [ ]I. Angina with acute coronary syndrome (Also use Myocardial Infarction or Angina guideline) [ ]II. Hemodynamic instability [X]III. Angina needing acute intervention as indicated by ALL of the following( 11)(12): [X]a) Unstable angina is present as indicated by angina that is ANY ONE of the following: [ ]i) New onset [ ]ii) Nocturnal [ ]iii) Prolonged at rest [X]iv) Progressive [X]b) Angina warrants acute intervention as indicated by ANY ONE of the following: [ ]i) Recurrent angina (e.g, not responding as previously to treatment) [ ]ii) Angina at rest or with low-level activities despite initial medical therapy [ ]iii) New or presumably new ST-segment depression on ECG [ ]iv) Signs or symptoms of heart failure (eg, dyspnea, pulmonary edema) [ ]v) New or worsening mitral regurgitation [ ]vi) Hemodynamic instability [ ]vii) Dangerous arrhythmia (eg, sustained ventricular tachycardia) [ ]viii) History of percutaneous coronary intervention within 6 months [ ]ix) History of coronary artery bypass graft surgery [ ]x) ELSA risk score of 2 or greater[A] [X]xi) History of Diabetes(14) [ ]xii) High-risk cardiac ischemia findings on noninvasive testing (e.g, echocardiogram, treadmill testing, nuclear scan) [ ]xiii) Chronic renal insufficiency (ie, estimated GFR less than 60 mL/min/1.732m) [ ]xiv) Left ventricular ejection fraction less than 40% [ ]IV. Evidence of PR (eg, cardiac biomarkers positive, ST-segment elevation on ECG) also use Myocardial Infarction Criteria Form. [ ]V. Pulmonary edema [ ]. Respiratory distress [ ]VII. Chest pain indicative of serious diagnosis other than coronary artery disease (eg, aortic dissection) [ ]VIII. Contraindications and/or Inappropriate clinical situations for Observational Care in patients with Chest Pain, when ANY ONE of the following is required: [ ]a) Patient with risk factor for pulmonary embolism, acute coronary syndrome and myocardial infarction (18) [ ]b) Patient with Pulmonary embolism require an average LOS of 4.3 days, therefore emergency department observation management is inappropriate 18,23 [ ]c) Painful condition/s in the elderly, have the highest rate of recidivism after emergency department observation management (10.8%) 20,21,22 [ ]d) Elevated cardiac biomarker requires intensive and exhaustive care (19) [ ]IX. General contraindications and/or Inappropriate clinical situations for Observational Care in patients with Chest Pain, when ANY ONE of the following is required: [ ]a) Prediction of prolongation of LOS based on ANY ONE of the following may be considered as a contraindication for observational care 2, 3, 4, 5, 6, 7, 8, 9, 10, 11 [ ]i) Age > 65 yrs. [ ]ii) Patient arriving by ambulance [ ]iii) Patient with high acuity [ ]iv) Patient requiring vital sign monitoring [ ]v) Patient on IV medication [ ]b) Systolic blood pressures 180mmHg 3,12 [ ]c) Patient with altered mental status including delirium and other alteration of consciousness, (3) [ ]d) Patient whose discharge disposition will be to a detention home or rehabilitation home should not be managed in Emergency Department Observation Unit. CMS rule requires 3 days hospital stay before such placement. 3,13 [ ]e) Patient with failure to thrive due to broad array of etiologies 3,16,17 [ ]f) Inability to ambulate 3,14 Extended stay beyond goal length of stay may be needed for (1)(28): [ ]a) Specific condition diagnosed after evaluation (eg, pulmonary embolism, aortic dissection) [ ]b) Unstable angina [ ]c) Continued suspicion of acute coronary syndrome with inability to complete needed cardiac evaluation (eg, patient clinically unable to undergo stress testing) [ ]d) Myocardial infarction (Contents from ANGINA and CHEST PAIN clinical indications for admission to inpatient care have been integrated in this form) The original [employer] content created by [employer] has been revised. The portions of the content which have been revised are identified through the use of italic text or in bold, and [employer] has neither reviewed nor approved the modified material. All other unmodified content is copyright [employer]. Please see references footnoted in the original [employer] edition 2016 Admission Criteria Met?: Yes WILMAR DAMON Jan 06, 2017 05:54
--- NOTE | 2017-01-06 06:27 | EKG ---
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
[2017-01-06 07:00] VITALS: BP 117/87
[2017-01-06] MEDS ORDERED: DEXTROSE 50% 25 GM / 50ML DISP.SYRIN. IV PRN (07:00)
[2017-01-06] MEDS ORDERED: ALBUTEROL SULFATE 2.5 MG/3 ML NEBU. NEB PRN (07:15)
[2017-01-06] MEDS ORDERED: PANTOPRAZOLE 40 MG TABLET.DR. PO SCH (07:30)
[2017-01-06] MEDS: HYDROmorphone 2 MG/ML VIAL IV PRN ×3 (07:31→16:13)
[2017-01-06] MEDS: INSULIN ASPART 300 UNITS/3 ML INSULN.PEN SQ SCH ×3 (07:55→17:24)
--- NOTE | 2017-01-06 08:00 | RAD ---
Chest, 2 views, 01/05/2017: History: Chest pain The heart size and pulmonary vascularity are normal. No pulmonary infiltrates are seen. There is no evidence of pleural fluid. IMPRESSION: No acute cardiopulmonary abnormality is detected.
--- NOTE | 2017-01-06 08:58 | PDOC2 ---
CARDIAC CONSULT DATE OF CONSULT Date of Consult DATE: 01/06/17 TIME: 08:47 REASON FOR CONSULT Reason for Consult: Chest pain REFERRING PHYSICIAN Referring Physician: Leonard SOURCE Source: Chart review, Patient HISTORY OF PRESENT ILLNESS HISTORY OF PRESENT ILLNESS This is a pleasant 46 yo male admitted for complains of chest pain. He has been doing well and denies any symptoms prior to yesterday. No significant difficulties, KENNEDY with his ADLs. Last night prior to going to be he started having mid sternal CP sharp in consistency worse with deep inspiration and also reproducible with palpation. This pain radiated to his mid back and teeth and was also having throbbing BRAVO at that time. Mild SOA, dizziness and nausea as well. Denies any palpitations. No recent falls, injury, heavy lifting. No prior VTE. He has been having coughing spells in the last week. No fever or chills. Verbalized no routine exercise, his BG 80-120s but he does not check his BP. Compliant with his medications and denies any routine NSAIDs. PAST MEDICAL HISTORY Cardiovascular: CAD, HTN, Hyperlipidemia Pulmonary: Asthma, Other (RUL pulmonary nodule) CENTRAL NERVOUS SYSTEM: Other (No pertinent history) GI: GERD Hepatobiliary: Other (MELENDEZ) Musculoskeletal: Other (morbid obesity) Renal/: Other (nephrolithiasis with lithotripsy) Endocrine: Diabetes (2) PAST SURGICAL HISTORY Past Surgical History: Appendectomy, Cholecystectomy, Other FAMILY HISTORY Family History: Diabetes, Heart Disease, Hypertension SOCIAL HISTORY Smoke: No (16 pk yr) ALCOHOL: none Drugs: None Lives: with Family CURRENT MEDICATIONS CURRENT MEDICATIONS Current Medications Medications (Trade) Dose Ordered Sig/Alice Route PRN Reason Start Time Stop Time Status Last Admin Dose Admin Ondansetron HCl (Zofran) 4 mg 1X ONCE IV 01/06/17 01:00 01/06/17 01:01 DC 01/06/17 00:50 Hydromorphone HCl (Dilaudid) 1 mg 1X ONCE IV 01/06/17 01:15 01/06/17 01:16 DC 01/06/17 00:57 Ondansetron HCl (Zofran) 4 mg PRN Q8HRS PRN IV NAUSEA/VOMITING 01/06/17 02:00 01/07/17 01:59 01/06/17 08:25 Fentanyl Citrate (Fentanyl 2ml Vial) 50 mcg PRN Q2HR PRN IV SEVERE PAIN 01/06/17 02:00 01/07/17 01:59 01/06/17 04:23 Sodium Chloride 1,000 ml @ 125 mls/hr Q8H IV 01/06/17 01:49 01/07/17 01:48 01/06/17 02:23 Nitroglycerin (Nitrostat) 0.4 mg PRN Q5MIN PRN SL CHEST PAIN 01/06/17 02:00 01/07/17 01:59 01/06/17 03:47 Pantoprazole Sodium (Protonix) 40 mg DAILYAC PO 01/06/17 07:30 01/06/17 07:30 Hydromorphone HCl (Dilaudid) 0.5 mg PRN Q4HRS PRN IV PAIN 01/06/17 07:00 01/06/17 07:31 ALLERGIES ALLERGIES: Coded Allergies: ketorolac (Verified Allergy, Severe, ANAPHYLAXIS, 03/09/15) NSAIDS (Non-Steroidal Anti-Inflamma (Verified Allergy, Intermediate, ) gabapentin (Verified Allergy, Intermediate, 12/11/14) pt verbalized getting hives morphine (Verified Allergy, Intermediate, Hives, tolerates Dilaudid, ) vancomycin (Verified Allergy, Intermediate, 06/05/16) ROS Review of System 14 point ROS evaluated with pertinent positives noted per HPI PHYSICAL EXAM General: Alert, Oriented X3, Cooperative, No acute distress HEENT: Atraumatic, Mucous membr. moist/pink Lungs: Clear to auscultation, Normal air movement Heart: Regular rate (SR no significant ectopies), Normal S1, Normal S2 Abdomen: Soft, No tenderness Extremities: No cyanosis, No edema Skin: No breakdown, No significant lesion Neuro: Normal speech, Sensation intact Psych/Mental Status: Mental status NL, Mood NL MUSCULOSKELETAL: Full range of motion without pain VITALS VITALS Vital Signs Date Time Temp Pulse Resp B/P (MAP) Pulse Ox O2 Delivery O2 Flow Rate FiO2 01/06/17 08:21 Room Air 01/06/17 04:15 97.7 88 20 153/91 (111) 97 97.7 LABS Lab: Laboratory Tests Test 01/05/17 23:30 01/06/17 07:45 01/06/17 07:50 White Blood Count 13.0 x10^3/uL (4.0-11.0) Red Blood Count 4.75 x10^6/uL (4.30-5.70) Hemoglobin 14.8 g/dL (13.0-17.5) Hematocrit 42.5 % (39.0-53.0) Mean Corpuscular Volume 90 fL (79-100) Mean Corpuscular Hemoglobin 31 pg (25-35) Mean Corpuscular Hemoglobin Concent 35 g/dL (31-37) Red Cell Distribution Width 13.4 % (11.5-14.5) Platelet Count 256 x10^3/uL (140-400) Neutrophils (%) (Auto) 67 % (31-73) Lymphocytes (%) (Auto) 24 % (24-48) Monocytes (%) (Auto) 6 % (0-9) Eosinophils (%) (Auto) 1 % (0-3) Basophils (%) (Auto) 1 % (0-3) Neutrophils # (Auto) 8.7 x10^3uL (1.8-7.7) Lymphocytes # (Auto) 3.2 x10^3/uL (1.0-4.8) Monocytes # (Auto) 0.8 x10^3/uL (0.0-1.1) Eosinophils # (Auto) 0.2 x10^3/uL (0.0-0.7) Basophils # (Auto) 0.1 x10^3/uL (0.0-0.2) D-Dimer (Mile) 0.41 ug/mlFEU (0.00-0.50) Sodium Level 138 mmol/L (136-145) Potassium Level 4.2 mmol/L (3.5-5.1) Chloride Level 102 mmol/L (98-107) Carbon Dioxide Level 27 mmol/L (21-32) Anion Gap 9 (6-14) Blood Urea Nitrogen 15 mg/dL (8-26) Creatinine 1.0 mg/dL (0.7-1.3) Estimated GFR (Cockcroft-Gault) 80.8 BUN/Creatinine Ratio 15 (6-20) Glucose Level 125 mg/dL (70-99) Calcium Level 9.7 mg/dL (8.5-10.1) Total Bilirubin 0.3 mg/dL (0.2-1.0) Aspartate Amino Transf (AST/SGOT) 16 U/L (15-37) Alanine Aminotransferase (ALT/SGPT) 21 U/L (16-63) Alkaline Phosphatase 91 U/L (46-116) Troponin I Quantitative < 0.017 ng/mL (0.000-0.055) < 0.017 ng/mL (0.000-0.055) YK-Cwx-N-Type Natriuretic Peptide 33 pg/mL (0-124) Total Protein 7.3 g/dL (6.4-8.2) Albumin 3.3 g/dL (3.4-5.0) Albumin/Globulin Ratio 0.8 (1.0-1.7) Glucose (Fingerstick) 124 mg/dL (70-99) ECHOCARDIOGRAM ECHOCARDIOGRAM <Conclusion> The left ventricular systolic function is normal and the ejection fraction is within normal range. The Ejection Fraction is 55-60%. Doppler and Color Flow revealed trace mitral regurgitation. Doppler and Color Flow revealed trace tricuspid regurgitation. The PA pressure was estimated at 27 mmHg. Doppler and Color Flow revealed trace pulmonic valvular regurgitation. DATE: 10/04/14 1518 HEART CATH HEART CATH Conclusion 1. Nonobstructive coronary disease 2. Normal left ventricular systolic function with ejection fraction estimated at 55% 3. No significant mitral regurgitation or aortic stenosis Recommendations Medical management DATE: 10/15/14 0934 ASSESSMENT/PLAN ASSESSMENT/PLAN 1. Atypical CP: typical associated symptoms noted. Troponin series normal, EKG SR without acute changes 2. CAD: 09/2014 [facility] with nonobstructive LCx 3. HTN: initially labile, now controlled 4. HLP: uncontrolled 5. MELENDEZ 6. DM2 7. Morbid obesity 8. GERD Recommendations 1. TTE, MPI today to completely rule out ischemia 2. Increase statin, optimize lifestyle modifications, diet changes, weight loss , routine exercise. Dietitian consult. 3. TSH. Continue with secondary prevention. Problems: NORMA HU APRN Jan 06, 2017 08:58
[2017-01-06] MEDS ORDERED: LISINOPRIL 40 MG TABLET. PO SCH (09:00)
[2017-01-06] MEDS ORDERED: ATENOLOL 50 MG TABLET. PO SCH (09:00)
[2017-01-06 09:32] LABS: CHOLESTEROL/HDL RATIO 7.1
[2017-01-06] MEDS ORDERED: REGADENOSON 0.4 MG/5 ML DISP.SYRIN. IV ONE (10:15)
[2017-01-06 11:00] VITALS: BP 126/73
--- NOTE | 2017-01-06 11:03 | CARD ---
APPROVED REPORT EXAM: Two-dimensional and M-mode echocardiogram with Doppler and color Doppler. Other Information Quality : Average Rhythm : NSR INDICATION Chest Pain 2D DIMENSIONS RVDd2.9 (2.9-3.5cm)Left Atrium(2D)4.0 (1.6-4.0cm) IVSd1.2 (0.7-1.1cm)Aortic Root(2D)3.2 (2.0-3.7cm) LVDd5.4 (3.9-5.9cm)LVOT Diameter2.1 (1.8-2.4cm) PWd1.2 (0.7-1.1cm)LVDs3.8 (2.5-4.0cm) FS (%) 30.9 %SV83.3 ml LVEF(%)57.9 (>50%) Aortic Valve AoV Peak Servando.130.2cm/sAoV VTI25.4cm AO Peak GR.6.8mmHgLVOT Peak Servando.116.7cm/s LVOT VTI 24.68cmAO Mean GR.4mmHg KENDRA (VMAX)3.05ey8DAW (VTI)3.28cm2 Mitral Valve MV E Sgyskpds24.9cm/sMV DECEL [id number] MV A Wgzelnuh37.3cm/sMV OQH58gg E/A Ratio1.1MV A Nvnccohh971ea MVA (PHT)3.55cm2 TDI E/Lateral E'5.0E/Medial E'7.6 Pulmonary Valve PV Peak Euskbltr707.3cm/sPV Peak Grad.5mmHg RVOT VTI18.0cm Tricuspid Valve TR P. Gdqydtxj131lx/sRAP DTBIFVMF1mdBp TR Peak Gr.40rrRmGEPU88qbKk Pulmonary Vein S1 Dvbcuvwu65.7cm/sD2 Piueqcfm52.0cm/s LEFT VENTRICLE The left ventricle is normal size. There is borderline concentric left ventricular hypertrophy. Left ventricle systolic function is normal. The Ejection Fraction is 55-60%. There is normal LV segmental wall motion. The left ventricular diastolic function and filling is normal for age. There is no ventr icular septal defect visualized. RIGHT VENTRICLE The right ventricle is normal size. The right ventricular systolic function is normal. ATRIA The left atrium size is normal. The right atrium size is normal. The interatrial septum is intact wit h no evidence for an atrial septal defect or patent foramen ovale as noted on 2-D or Doppler imaging. AORTIC VALVE The aortic valve is not well visualized. Doppler and Color Flow revealed no significant aortic regurg itation. There is no significant aortic valvular stenosis. MITRAL VALVE The mitral valve is normal in structure and function. There is no mitral valve stenosis. Doppler and Color Flow revealed no mitral valve regurgitation noted. TRICUSPID VALVE The tricuspid valve is normal in structure and function. Doppler and Color Flow revealed trace tricus pid regurgitation. The PA pressure was estimated at 20 mmHg. There is no tricuspid valve stenosis. PULMONIC VALVE The pulmonic valve is not well visualized. Doppler and Color Flow revealed no pulmonic valvular regur gitation. There is no pulmonic valvular stenosis. GREAT VESSELS The aortic root is normal in size. Normal pulmonary venous flow (Doppler). The IVC is normal in size and collapses >50% with inspiration. PERICARDIAL EFFUSION There is no evidence of significant pericardial effusion. Critical Notification Critical Value: No <Conclusion> The left ventricle is normal size. Left ventricle systolic function is normal. The Ejection Fraction is 55-60%. There is borderline concentric left ventricular hypertrophy. There is no significant aortic valvular stenosis. Doppler and Color Flow revealed no significant aortic regurgitation. Doppler and Color Flow revealed no mitral valve regurgitation noted. Doppler and Color Flow revealed trace tricuspid regurgitation. The PA pressure was estimated at 20 mmHg.
[2017-01-06] MEDS ORDERED: ASPIRIN ENTERIC COATED 81 MG TABLET.DR. PO SCH (13:00)
[2017-01-06] MEDS ORDERED: oxyCODONE/APAP 5/325 1 TAB TABLET PO PRN ×3 (14:00→15:45)
--- NOTE | 2017-01-06 14:51 | RAD ---
APPROVED REPORT Test Type: Pharmacological Stress Nurse/Tech: Nahum Martino RN Test Indications: chest pain Cardiac History: see ehr Medications: see ehr Medical History: see ehr Resting ECG: SR Resting Heart Rate: 71 bpm Resting Blood Pressure: 111/63mmHg Pretest Chest Pain: None Nurse/Tech Notes Lungs CTA, S1, S2 Consent: The procedure was explained to the patient in lay terms. Informed consent was witnessed. William eout was entered into [employer]. History and Stress Test performed by Zoraida MenchacaNLizzy Pharm. Details Pharmacologic stress testing was performed using 0.4mg per 5ml of regadenoson given intravenously ove r 7-10 seconds. Stress Symptoms No chest pain or symptoms. POST EXERCISE Reason for Termination: Infusion complete Max HR: 85 bpm Max Blood Pressure: 117/55mmHg Blood Pressure response to exercise: Normal blood pressure response during stress. Chest Pain: No. Arrhythmia: No. ST Change: No. INTERPRETATION Stress EKG Conclusion: The resting EKG showed a sinus rhythm and mild nonspecific ST-T wave changes. The stress EKG showed no significant changes from baseline. No EKG evidence of stress-induced ischemia. Imaging Protocol IMAGE PROTOCOL: Stress Tc-99m/rest Tc-99m 2 days Rest: Stress: Viability: Radiopharm.Tc99m Sestamibi [id number] Duration 10min. Img Date 01/06/2017 Inj-Img [id number]. Stress Admin Site: IV - Left AntecubitalAdministrator: RT Leticia (R)(N) STRESS DATA End Diast. Vol.122.0mlAv. Heart Rate70.0bpm End Syst. Vol.31.0mlCO Index BSA0.0L/min Myocardial Tias285.0gEject. Qljvwhmq93.0% Stress Rates Pk. Fill Rate3.08EDV/secLVtime Pk. Fill 197.26msec Pk. Empty Rate3.70ESV/secLVtime Pk. Wklhf323.83msec 07/21 Pk. Fill1.75EDV/sec Stress Scores Regional WT2.00Summed WT13.00 Regional WM0.00Summed WM0.00 LV Perfusion The stress scans showed no significant defects. Wall Motion LV systolic function was normal with an ejection fraction of greater than 70%. LV Perf. Quant 17 Seg. SSS0.00 Stress Defect Extent (% LAD)0.00Rest Defect Extent (% LAD)Rev. Defect Extent (% LAD)0.00 Stress Defect Extent (% LCX) 0.00Rest Defect Extent (% LCX)Rev. Defect Extent (% LCX)0.00 Stress Defect Extent (% RCA)0.00Rest Defect Extent (% RCA)Rev. Defect Extent (% RCA)0.00 Stress Defect Extent (% MARIANGEL)0.00Rest Defect Extent (% MARIANGEL)Rev. Defect Extent (% MARIANGEL)0.00 Conclusion 1. No EKG evidence of stress-induced ischemia. 2. Nuclear imaging shows no reversible ischemia or infarct. 3. Normal left ventricular systolic function with an ejection fraction of greater than 70%. 4. Low risk Lexiscan nuclear stress test.
[2017-01-06 15:00] VITALS: BP 92/47
--- NOTE | 2017-01-06 18:44 | HP ---
ADMIT DATE: 01/06/2017 CHIEF COMPLAINT: Chest pain. HISTORY OF PRESENT ILLNESS: The patient is a 46-year-old, morbidly obese, gentleman with past medical history significant for diabetes mellitus, hypertension as well as asthma, who presented to the Emergency Room with acute midsternal chest pain. He relates that he had some needling in the middle of his chest off and on all during day, but in the evening after supper, he started to have been more acute pain. He initially thought this may have been GERD and took Mylanta and reflux medication without any relief. Pain was sharp, worse with deep breathing and started to radiate into his back as well as up into his jaw and left shoulder. He became a little bit short of breath, but no diaphoresis, nausea, vomiting, fevers or chills. Pain is persisting despite getting Dilaudid and fentanyl, he still rates it at 6. Of note, the patient actually had a cardiac catheterization about 5 years ago and had a 40% obstruction at that time. He does have a significant family history, father with stroke and NH in his late 40s and 50s. PAST MEDICAL HISTORY: Diabetes mellitus, hypertension, hyperlipidemia, asthma, history of multiple kidney stones, pancreatitis x 2, status post cholecystectomy. He is also status post appendectomy and a lithotripsy for his kidney stones. FAMILY HISTORY: Positive for CAD in father, grandfather and great grandfather. SOCIAL HISTORY: , living with his . No toxic habits. ALLERGIES: NSAIDS, ESPECIALLY TORADOL CAUSING ANAPHYLAXIS. HOME MEDICATIONS: Reconciled with [facility]. REVIEW OF SYSTEMS: Positive as per HPI. He has chronic back pain. Currently, no abdominal complaints or symptoms and rest of organ system review. PHYSICAL EXAMINATION: VITAL SIGNS: From today show a blood pressure of 126/73, heart rate of 70, respiratory rate at 18. He is afebrile. GENERAL: This is a morbidly obese 46-year-old gentleman, awake, alert, in no acute distress. HEENT: Shows no scleral icterus. NECK: Supple. LUNGS: Clear to auscultation bilaterally. HEART: Regular rate and rhythm. ABDOMEN: Morbidly obese, organs could not be palpated. No tenderness to palpation. EXTREMITIES: Show no edema. SKIN: Warm, soft and dry without any rash. LABORATORY DATA: CBC with a WBC of 13.0, hemoglobin 14.8, platelets of 256. Chemistries with a BUN and creatinine of 15 and 1.1, normal electrolytes, normal LFTs. Initial troponin is negative. Lipid profile obtained as well with triglycerides at 249. Cholesterol at 241 and LDL at 157. RADIOGRAPHIC IMAGING: Chest x-ray shows no acute cardiopulmonary abnormality. ASSESSMENT AND PLAN: The patient is a 46-year-old gentleman with multiple cardiac risk factors, now appears to be atypical chest pain. Nevertheless, should be ruled out for ACS. Enzymes and EKGs will be obtained. A cardiology consult has been requested as well. Anticipate further workup to be ordered there. The pain, he describes as somewhat atypical and is reminiscent of chest wall pain. Ideally, he would receive NSAIDs for this, but secondary to his allergies, this will not be an option. He is currently on fentanyl and Dilaudid. He also has oxycodone available. He has taken Percocet actually at home for back pain. We will increase dose here as needed to get him comfortable. His diabetes was fairly well controlled. Blood sugar post-breakfast somewhat elevated. We will continue insulin sliding scale and insulin dosing as needed. The patient is on blood pressure medication and currently with good control. We will continue home meds. The patient had been on 20 mg of atorvastatin at home, but with current lipid profile be in still well out of control, dose will be increased to 40. Needs to be followed up by his PCP for further adjustment as needed. We will await cardiac workup and further recommendations. Anticipate discharge to home later today, if workup is negative. SADAF SUMMERS MD DR: CESAR/nts JOB#: [id number] / [id number] CLAIRE
[2017-01-06] MEDS ORDERED: POTASSIUM CHLORIDE 10 MEQ in IV 1/2 NORMAL SALINE 1,000 ML IV SCH (19:00)
[2017-01-06] MEDS ORDERED: HYDROmorphone 2 MG/ML VIAL IV PRN (20:13)
[2017-01-06] MEDS ORDERED: INSULIN DETEMIR 300 UNITS/3 ML INSULN.PEN. SQ SCH ×2 (21:00)
[2017-01-06] MEDS ORDERED: ATORVASTATIN CALCIUM 40 MG TABLET. PO SCH (21:00)
[2017-01-06] MEDS ORDERED: ATORVASTATIN CALCIUM 20 MG TABLET PO SCH (21:00)
== END 2017-01-06 19:49 | disposition left against medical advice (07) | DRG 313 ==
LOC: ER 23:06 → ED HOLD 01-06 00:32 → 5 NORTH 01-06 04:14
PROVIDERS: ADMIT Internal Medicine Hematology & Oncology; ATTEND Internal Medicine Hematology & Oncology
DX: R07.89 Other chest pain (principal); Z68.41 Body mass index [BMI] 40.0-44.9, adult; E11.9 Type 2 diabetes mellitus without complications; E66.01 Morbid (severe) obesity due to excess calories; E78.5 Hyperlipidemia, unspecified; I25.10 Atherosclerotic heart disease of native coronary artery without angina pectoris; I10 Essential (primary) hypertension; J45.909 Unspecified asthma, uncomplicated; K21.9 Gastro-esophageal reflux disease without esophagitis; Z79.4 Long term (current) use of insulin; Z82.3 Family history of stroke; Z82.49 Family history of ischemic heart disease and other diseases of the circulatory system; Z83.3 Family history of diabetes mellitus; Z87.442 Personal history of urinary calculi; Z90.49 Acquired absence of other specified parts of digestive tract; Z86.14 Personal history of Methicillin resistant Staphylococcus aureus infection; Z88.8 Allergy status to other drugs, medicaments and biological substances; Z88.1 Allergy status to other antibiotic agents; Z88.5 Allergy status to narcotic agent
CPT/HCPCS: 36415; 71020; 78452; 80053; 80061; 82962; 83690; 83880; 84443; 84484; 85027; 85379; 87641; 93005; 93017; 93306; 96374; 96375; A9500; J1170; J1815; J2270; J2405; J2785; J3010; J7030; 99285-25

== ENCOUNTER 2017-02-21 13:00 | Emergency (ER) | payer SELFPAY ==
[~2017-02-21] VITALS: Ht 172.7 cm; Wt 131.1 kg
[~2017-02-21 13:00] MED LIST changes: +METO10TA81 PO; +METO25TA9 PO; +PROC10TA57 PO
[2017-02-21 13:50] VITALS: BP 120/82
[2017-02-21 14:14] LABS: BASO # 0.1 x10^3/uL (0.0-0.2); BASO % 1 % (0-3); EOS % 1 % (0-3); HEMATOCRIT 42.3 % (39.0-53.0); HEMOGLOBIN 14.7 g/dL (13.0-17.5); LYMPH # 1.7 x10^3/uL (1.0-4.8); LYMPH % 14 % (24-48); MEAN CORPUSCULAR HEMOGLOBIN 31 pg (25-35); MEAN CORPUSCULAR HGB CONC 35 g/dL (31-37); MEAN CORPUSCULAR VOLUME 90 fL (79-100); MONO % 5 % (0-9); NEUT % 79 % (31-73); PLATELET COUNT 249 x10^3/uL (140-400); RED BLOOD COUNT 4.71 x10^6/uL (4.30-5.70); RED CELL DISTRIBUTION WIDTH 13.1 % (11.5-14.5); WHITE BLOOD COUNT 12.3 x10^3/uL (4.0-11.0)
[2017-02-21] MEDS ORDERED: ONDANSETRON PF 4 MG/2 ML VIAL. IV ONE (14:15)
[2017-02-21] MEDS ORDERED: IV NORMAL SALINE 1000ML BAG 1,000 ML IV SCH (14:15)
[2017-02-21] MEDS ORDERED: diphenhydrAMINE 50 MG/ML VIAL IVP ONE (14:15)
[2017-02-21 14:20] LABS: BILIRUBIN,URINE NEGATIVE (NEG); GLUCOSE,URINE >=1000 mg/dL (NEG); NITRITE,URINE NEGATIVE (NEG); PH,URINE 6.5; PROTEIN,URINE NEGATIVE (NEG-TRACE); UROBILINOGEN,URINE 0.2 mg/dL (0.2 mg/dL)
[2017-02-21 14:25] LABS: BARBITURATES NEG (NEG); BENZODIAZEPINES NEG (NEG); CANNABINOIDS POS (NEG); COCAINE NEG (NEG); METHADONE NEG (NEG); OPIATES POS (NEG); PHENCYCLIDINE NEG (NEG)
[2017-02-21 14:28] LABS: CALCIUM 9.9 mg/dL (8.5-10.1); CREATININE 0.8 mg/dL (0.7-1.3); GFR 104.5; POTASSIUM 4.3 mmol/L (3.5-5.1)
[2017-02-21 14:31] LABS: ALBUMIN 3.5 g/dL (3.4-5.0); ALBUMIN/GLOBULIN RATIO 0.9 (1.0-1.7); TOTAL BILIRUBIN 0.3 mg/dL (0.2-1.0); TOTAL PROTEIN 7.4 g/dL (6.4-8.2)
[2017-02-21 14:34] LABS: RBC,URINE 0 /HPF (0-2); WBC,URINE OCC /HPF (0-4)
[2017-02-21 14:35] LABS: BACTERIA,URINE 0 /HPF (0-FEW); SQUAMOUS EPITHELIAL CELL,UR FEW /LPF
[2017-02-21] MEDS ORDERED: METO10TA81 PO (15:02)
--- NOTE | 2017-02-21 15:39 | ED.ADGEN ---
Past Medical History Past Medical History: Asthma, CAD, Diabetes-Type II, Hypertension, Kidney Stone , MRSA, Pancreatitis, Other Additional Past Medical Histor: STAPH INFECTION, gastroparesis Past Surgical History: Appendectomy, Cholecystectomy, Other Additional Past Surgical Histo: Lithotripsy x 3, Abscess on back; heart cath ( NO STENTS) Alcohol Use: Rarely Drug Use: Marijuana Adult General Chief Complaint Chief Complaint: ABDOMINAL PAIN HPI HPI Patient is a 46 year old man, history of type 2 diabetes mellitus, gastroparesis, hypertension, who presents to the emergency department with a complaint of cramping abdominal pain, nausea and vomiting. Denies any diarrhea, states that he previously was diagnosed with an elevated lipase and potential pancreatitis last week, and wants his lipase level checked. Patient states he's been using Percocet at home, along with Zofran, states that he does have Reglan at home but has forgotten to take it. He denies any fevers or chills, any recent travel or surgery, any swelling extremities, any rashes, any chest pain or shortness of breath. No injuries. No urinary complaints. Review of Systems Review of Systems Constitutional: Denies fever or chills. [] Eyes: Denies change in visual acuity. [] HENT: Denies nasal congestion or sore throat. [] Respiratory: Denies cough or shortness of breath. [] Cardiovascular: Denies chest pain or edema. [] GI: Abdominal pain, nausea, vomiting, no bloody stools or diarrhea. Regular bowel movements. : Denies dysuria. [] Musculoskeletal: Denies back pain or joint pain. [] Integument: Denies rash. [] Neurologic: Denies headache, focal weakness or sensory changes. [] Endocrine: Denies polyuria or polydipsia. [] Lymphatic: Denies swollen glands. [] Psychiatric: Denies depression or anxiety. [] Current Medications Current Medications Current Medications Medications (Trade) Dose Ordered Sig/Alice Start Time Stop Time Status Last Admin Dose Admin Diphenhydramine HCl (Benadryl) 25 mg 1X ONCE 02/21/17 14:15 02/21/17 14:16 DC Ondansetron HCl (Zofran) 4 mg 1X ONCE 02/21/17 14:15 02/21/17 14:16 DC Sodium Chloride 1,000 ml @ 1,000 mls/hr Q1H 02/21/17 14:15 02/21/17 15:14 DC Allergies Allergies Allergies Coded Allergies Type Severity Reaction Last Updated Verified ketorolac Allergy Severe ANAPHYLAXIS; TOLERATES ASA 01/06/17 Yes NSAIDS (Non-Steroidal Anti-Inflamma Allergy Intermediate TOLERATES ASA Yes gabapentin Allergy Intermediate 12/11/14 Yes morphine Allergy Intermediate Hives, tolerates Dilaudid 12/10/14 Yes vancomycin Allergy Intermediate 06/05/16 Yes Physical Exam Physical Exam Constitutional: Well developed, well nourished, no acute distress, non-toxic appearance. [] HENT: Normocephalic, atraumatic, bilateral external ears normal, oropharynx moist, no oral exudates, nose normal. [] Eyes: PERRLA, EOMI, conjunctiva normal, no discharge. [] Neck: Normal range of motion, no tenderness, supple, no stridor. [] Cardiovascular:Heart rate regular rhythm, no murmur, S1, S2, rubs or gallops. [] Lungs & Thorax: Bilateral breath sounds clear to auscultation, no wheezing, rhonchi, rales. No chest or crepitus or tenderness. [] Abdomen: Bowel sounds normal, soft, mild initial patient in the epigastric region, no rebound, rigidity, no guarding, no masses, no pulsatile masses. [] Skin: Warm, dry, no erythema, no rash. [] Back: No tenderness, no CVA tenderness. [] Extremities: No tenderness, no cyanosis, no clubbing, ROM intact, no edema. [] Neurologic: Alert and oriented X 3, normal motor function, normal sensory function, no focal deficits noted. [] Psychologic: Affect normal, judgement normal, mood normal. [] Current Patient Data Vital Signs Vital Signs Date Time Temp Pulse Resp B/P (MAP) Pulse Ox O2 Delivery O2 Flow Rate FiO2 02/21/17 13:50 98.0 77 22 120/82 (95) 100 Room Air 98.0 Lab Values Laboratory Tests Test 02/21/17 13:57 White Blood Count 12.3 x10^3/uL (4.0-11.0) H Red Blood Count 4.71 x10^6/uL (4.30-5.70) Hemoglobin 14.7 g/dL (13.0-17.5) Hematocrit 42.3 % (39.0-53.0) Mean Corpuscular Volume 90 fL (79-100) Mean Corpuscular Hemoglobin 31 pg (25-35) Mean Corpuscular Hemoglobin Concent 35 g/dL (31-37) Red Cell Distribution Width 13.1 % (11.5-14.5) Platelet Count 249 x10^3/uL (140-400) Neutrophils (%) (Auto) 79 % (31-73) H Lymphocytes (%) (Auto) 14 % (24-48) L Monocytes (%) (Auto) 5 % (0-9) Eosinophils (%) (Auto) 1 % (0-3) Basophils (%) (Auto) 1 % (0-3) Neutrophils # (Auto) 9.8 x10^3uL (1.8-7.7) H Lymphocytes # (Auto) 1.7 x10^3/uL (1.0-4.8) Monocytes # (Auto) 0.6 x10^3/uL (0.0-1.1) Eosinophils # (Auto) 0.1 x10^3/uL (0.0-0.7) Basophils # (Auto) 0.1 x10^3/uL (0.0-0.2) Urine Collection Type Unknown Urine Color Yellow Urine Clarity Clear Urine pH 6.5 Urine Specific [place] 1.020 Urine Protein Negative mg/dL (NEG-TRACE) Urine Glucose (UA) >=1000 mg/dL (NEG) Urine Ketones (Stick) Negative mg/dL (NEG) Urine Blood Negative (NEG) Urine Nitrite Negative (NEG) Urine Bilirubin Negative (NEG) Urine Urobilinogen Dipstick 0.2 mg/dL (0.2 mg/dL) Urine Leukocyte Esterase Negative (NEG) Urine RBC 0 /HPF (0-2) Urine WBC Occ /HPF (0-4) Urine Squamous Epithelial Cells Few /LPF Urine Bacteria 0 /HPF (0-FEW) Sodium Level 136 mmol/L (136-145) Potassium Level 4.3 mmol/L (3.5-5.1) Chloride Level 101 mmol/L (98-107) Carbon Dioxide Level 26 mmol/L (21-32) Anion Gap 9 (6-14) Blood Urea Nitrogen 11 mg/dL (8-26) Creatinine 0.8 mg/dL (0.7-1.3) Estimated GFR (Cockcroft-Gault) 104.5 BUN/Creatinine Ratio 14 (6-20) Glucose Level 209 mg/dL (70-99) H Calcium Level 9.9 mg/dL (8.5-10.1) Total Bilirubin 0.3 mg/dL (0.2-1.0) Aspartate Amino Transferase (AST) 11 U/L (15-37) L Alanine Aminotransferase (ALT) 19 U/L (16-63) Alkaline Phosphatase 82 U/L (46-116) Total Protein 7.4 g/dL (6.4-8.2) Albumin 3.5 g/dL (3.4-5.0) Albumin/Globulin Ratio 0.9 (1.0-1.7) L Lipase 117 U/L (73-393) Urine Opiates Screen Pos (NEG) Urine Methadone Screen Neg (NEG) Urine Barbiturates Neg (NEG) Urine Phencyclidine Screen Neg (NEG) Urine Amphetamine/Methamphetamine Neg (NEG) Urine Benzodiazepines Screen Neg (NEG) Urine Cocaine Screen Neg (NEG) Urine Cannabinoids Screen Pos (NEG) Urine Ethyl Alcohol Neg (NEG) Laboratory Tests 02/21/17 13:57 Laboratory Tests 02/21/17 13:57 EKG EKG Not indicated. [] Radiology/Procedures Radiology/Procedures Not indicated. [] Course & Med Decision Making Course & Med Decision Making Pertinent Labs and Imaging studies reviewed. (See chart for details) Patient well-appearing, vital signs within normal limits, patient with minimal tenderness to the abdomen, normal bowel sounds, states is having normal bowel movements. Review of records reveals a recent evaluation that revealed delayed gastric emptying. Patient initially declined medications in the ED, I did discuss this with patient, he states that he has been drinking lots of fluids and is having a no problems keeping fluids down, and is here primarily to see what his lipase able is determine if he has recurrent pancreatitis. He has not had any further emesis in the ED, denies any nausea currently. Although lipase levels may not correlate with acute pancreatitis, patient's lipase is within normal limits, as are the other electrolytes and laboratory studies. I did discuss this with patient, who states that he is feeling well at this time, is ready for discharge. He states that he is planning to follow up with the [facility], and does not have a hat conditioner. Discussed with patient that use of Percocet another opiate medications can actually worsen the issue, patient states he knows this, but uses the medication for chronic pain. He does have medications at home, including Reglan stated, he did decline additional medications such as Bentyl, and other nonnarcotic medications. His UDS is positive for marijuana and opiates. I did discuss importance of follow-up with the patient, concerning symptoms that prompt return, also give the patient a refill of Reglan to be used as directed, patient discharged home in stable condition with plan and precautions as stated. Dragon Disclaimer Dragon Disclaimer This electronic medical record was generated, in whole or in part, using a voice recognition dictation system. Departure Impression: Primary Impression: Gastroparesis Disposition: 01 HOME, SELF-CARE Condition: STABLE Scripts Metoclopramide Hcl (REGLAN) 10 Mg Tablet 10 MG PO QIDACHS Y for abdominal pain, #16 TAB 0 Refills Prov: ANNABEL DELEON DO 02/21/17 ANNABEL DELEON DO Feb 21, 2017 15:39
--- NOTE | 2017-02-22 06:52 | EKG ---
[facility] [address] [place] [address] Test Date: 2017-02-21 Test Time: 13:51:06 Pat Name: ANDRES FAY Department: Room: Gender: Renewal Specialist: : 1970 Requested By: ANNABEL DELEON Order Number: [id number] Reading MD: Measurements Intervals [place] Rate: 75 P: 31 KS: 162 QRS: 36 QRSD: 88 T: 62 QT: 352 QTc: 396 Interpretive Statements SINUS RHYTHM QRS(T) CONTOUR ABNORMALITY CONSIDER ANTEROLATERAL MYOCARDIAL DAMAGE RI6.01 Unconfirmed report No previous ECG available for comparison
== END 2017-02-21 15:00 | disposition home or self-care (01) ==
LOC: ER 13:00
DX: E11.43 Type 2 diabetes mellitus with diabetic autonomic (poly)neuropathy (principal); K31.84 Gastroparesis; J45.909 Unspecified asthma, uncomplicated; I25.10 Atherosclerotic heart disease of native coronary artery without angina pectoris; I10 Essential (primary) hypertension; F12.10 Cannabis abuse, uncomplicated; Z87.442 Personal history of urinary calculi; Z90.49 Acquired absence of other specified parts of digestive tract; Z88.6 Allergy status to analgesic agent; Z88.1 Allergy status to other antibiotic agents; Z88.8 Allergy status to other drugs, medicaments and biological substances; Z88.5 Allergy status to narcotic agent
CPT/HCPCS: 36415; 80053; 80307; 81001; 83690; 85027; 93005; 99285-25; G0479

== ENCOUNTER 2018-01-11 22:28 | Emergency (ER) | payer SELFPAY ==
[2018-01-11 22:54] LABS: BILIRUBIN,URINE NEGATIVE (NEG); CLARITY,URINE CLEAR; COLOR,URINE YELLOW; GLUCOSE,URINE NEGATIVE (NEG); NITRITE,URINE NEGATIVE (NEG); PROTEIN,URINE 30 mg/dL (NEG-TRACE); UROBILINOGEN,URINE 0.2 mg/dL (0.2 mg/dL)
[2018-01-11 23:00] LABS: ADD MAN DIFF? NO
[2018-01-11 23:01] LABS: BACTERIA,URINE 0 /HPF (0-FEW); BASO # 0.2 x10^3/uL (0.0-0.2); BASO % 1 % (0-3); EOS # 0.2 x10^3/uL (0.0-0.7); EOS % 1 % (0-3); HEMATOCRIT 44.3 % (39.0-53.0); HEMOGLOBIN 15.6 g/dL (13.0-17.5); LYMPH # 4.3 x10^3/uL (1.0-4.8); LYMPH % 26 % (24-48); MEAN CORPUSCULAR HEMOGLOBIN 32 pg (25-35); MEAN CORPUSCULAR HGB CONC 35 g/dL (31-37); MEAN CORPUSCULAR VOLUME 90 fL (79-100); MONO # 1.2 x10^3/uL (0.0-1.1); MONO % 7 % (0-9); NEUT # 10.5 x10^3uL (1.8-7.7); NEUT % 65 % (31-73); PLATELET COUNT 296 x10^3/uL (140-400); RBC,URINE 0 /HPF (0-2); RED BLOOD COUNT 4.91 x10^6/uL (4.30-5.70); SQUAMOUS EPITHELIAL CELL,UR FEW /LPF; WBC,URINE OCC /HPF (0-4); WHITE BLOOD COUNT 16.2 x10^3/uL (4.0-11.0)
[2018-01-11] MEDS: fentaNYL PF VIAL 100 MCG/2 ML VIAL IV (23:08)
[2018-01-11 23:09] LABS: ANION GAP 11 (6-14); BLOOD UREA NITROGEN 22 mg/dL (8-26); BUN/CREATININE RATIO 22 (6-20); CALCIUM 10.7 mg/dL (8.5-10.1); CARBON DIOXIDE 26 mmol/L (21-32); CHLORIDE 98 mmol/L (98-107); GFR 80.4; GLUCOSE 266 mg/dL (70-99); SODIUM 135 mmol/L (136-145)
[2018-01-11] MEDS: ONDANSETRON PF 4 MG/2 ML VIAL. IV (23:09)
[2018-01-11 23:15] LABS: ALBUMIN 3.5 g/dL (3.4-5.0); ALBUMIN/GLOBULIN RATIO 0.8 (1.0-1.7); ALK PHOS 91 U/L (46-116); ALT (SGPT) 24 U/L (16-63); AST (SGOT) 13 U/L (15-37); TOTAL BILIRUBIN 0.2 mg/dL (0.2-1.0); TOTAL PROTEIN 7.9 g/dL (6.4-8.2)
[2018-01-12] MEDS: fentaNYL PF VIAL 100 MCG/2 ML VIAL IV (00:09)
[2018-01-12] MEDS: AZITHROMYCIN 250 MG TABLET. PO (00:31)
[2018-01-12] MEDS: oxyCODONE/APAP 5/325 1 TAB TABLET PO (01:22)
== END 2018-01-12 01:27 | disposition home or self-care (01) ==
LOC: ER 01-12 01:27
DX: N45.1 Epididymitis (principal); N50.3 Cyst of epididymis; J45.909 Unspecified asthma, uncomplicated; I25.10 Atherosclerotic heart disease of native coronary artery without angina pectoris; E11.9 Type 2 diabetes mellitus without complications; I10 Essential (primary) hypertension; Z87.442 Personal history of urinary calculi; Z86.14 Personal history of Methicillin resistant Staphylococcus aureus infection; Z88.6 Allergy status to analgesic agent; Z88.5 Allergy status to narcotic agent; Z88.1 Allergy status to other antibiotic agents; Z88.8 Allergy status to other drugs, medicaments and biological substances
CPT/HCPCS: 36415; 76870; 80053; 81001; 85025; 96365; 96375; 96376; 99285-25; J0690; J2405; J3010; Q0144

== ENCOUNTER 2018-01-27 16:11 | Emergency (ER) | payer SELFPAY | END 2018-01-27 17:56 | disposition left against medical advice (07) | LOC: ER 16:11 | DX: N50.819 Testicular pain, unspecified (principal); J45.909 Unspecified asthma, uncomplicated; I10 Essential (primary) hypertension; E11.43 Type 2 diabetes mellitus with diabetic autonomic (poly)neuropathy; K31.84 Gastroparesis; Z90.49 Acquired absence of other specified parts of digestive tract | CPT/HCPCS: 99281 ==

== ENCOUNTER 2018-06-08 21:03 | Emergency (ER) | payer SELFPAY ==
[~2018-06-08] VITALS: Ht 172.7 cm; Wt 124.7 kg
[~2018-06-08 21:03] MED LIST changes: +CIPR500T94 PO; -HYDR-2758 PO; +HYDR-2761 PO; +HYDR-3164 PO; -HYDR-971 PO; +LISI-130 PO; -LISI40TA PO; -METF-620 PO; +METF10007 PO; +METO-239 PO; -METO25TA9 PO
[2018-06-08 21:45] VITALS: BP 115/70
[2018-06-08 22:20] LABS: BILIRUBIN,URINE NEGATIVE (NEG); CLARITY,URINE CLEAR; COLOR,URINE YELLOW; NITRITE,URINE NEGATIVE (NEG); PROTEIN,URINE NEGATIVE (NEG-TRACE); UROBILINOGEN,URINE 0.2 mg/dL (0.2 mg/dL)
[2018-06-08 22:25] LABS: BACTERIA,URINE 0 /HPF (0-FEW); RBC,URINE TNTC /HPF (0-2); SQUAMOUS EPITHELIAL CELL,UR FEW /LPF; WBC,URINE OCC /HPF (0-4)
[2018-06-08 22:29] LABS: BASO % 0 % (0-3); EOS # 0.1 x10^3/uL (0.0-0.7); EOS % 1 % (0-3); HEMATOCRIT 41.7 % (39.0-53.0); HEMOGLOBIN 14.8 g/dL (13.0-17.5); LYMPH # 3.1 x10^3/uL (1.0-4.8); LYMPH % 25 % (24-48); MEAN CORPUSCULAR HEMOGLOBIN 32 pg (25-35); MEAN CORPUSCULAR HGB CONC 35 g/dL (31-37); MEAN CORPUSCULAR VOLUME 92 fL (79-100); MONO # 0.8 x10^3/uL (0.0-1.1); MONO % 7 % (0-9); NEUT # 8.3 x10^3uL (1.8-7.7); NEUT % 67 % (31-73); PLATELET COUNT 290 x10^3/uL (140-400); RED BLOOD COUNT 4.56 x10^6/uL (4.30-5.70); RED CELL DISTRIBUTION WIDTH 13.3 % (11.5-14.5); WHITE BLOOD COUNT 12.3 x10^3/uL (4.0-11.0)
[2018-06-08] MEDS ORDERED: IV NORMAL SALINE 1000ML BAG 1,000 ML IV ONE (22:30)
[2018-06-08] MEDS ORDERED: METOCLOPRAMIDE HCL 10 MG/2 ML VIAL. IV ONE (22:30)
[2018-06-08] MEDS ORDERED: fentaNYL PF VIAL 100 MCG/2 ML VIAL IV ONE ×2 (22:30→23:00)
[2018-06-08 22:37] LABS: CALCIUM 10.4 mg/dL (8.5-10.1); CREATININE 0.9 mg/dL (0.7-1.3); GFR 90.8; POTASSIUM 4.3 mmol/L (3.5-5.1)
[2018-06-08 22:42] LABS: ALBUMIN 3.7 g/dL (3.4-5.0); ALBUMIN/GLOBULIN RATIO 0.9 (1.0-1.7); TOTAL BILIRUBIN 0.2 mg/dL (0.2-1.0)
--- NOTE | 2018-06-08 23:18 | RAD ---
PQRS Compliance statement: One or more of the following individualized dose reduction techniques were utilized for this examination: 1. Automated exposure control. 2. Adjustment of the mA and/or kV according to patient size. 3. Use of iterative reconstruction technique. Indication:right side flank pain, r/o stone, prior sent TECHNIQUE: CT abdomen and pelvis without IV contrast with multiplanar reformats. COMPARISON: 01/14/2018 FINDINGS: Limited evaluation of solid abdominal and pelvic organs due to lack of IV contrast. Heart is normal in size. No pericardial or pleural effusion. Clear lung bases. Noncontrast appearance of the liver, spleen, pancreas, adrenals within normal limits. Status post cholecystectomy. Punctate nonobstructing right renal stone. No hydronephrosis. No free pelvic fluid or ascites. No enlarged retroperitoneal or pelvic adenopathy. No bowel obstruction. Urinary bladder demonstrates no radiopaque stones. The prostate and seminal vesicles show no large mass. No pneumoperitoneum. No suspicious bony lesion. IMPRESSION: Limited evaluation of solid abdominal and pelvic organs due to lack of IV contrast. Punctate nonobstructing right renal stone. Electronically signed by: Tony Akbar DO (06/08/2018 11:14 PM) [facility]
--- NOTE | 2018-06-08 23:22 | PHYS DOC ---
Past Medical History Past Medical History: Asthma, Diabetes-Type II, Hypertension, Kidney Stone, Pancreatitis Additional Past Medical Histor: STAPH INFECTION, gastroparesis, Past Surgical History: Appendectomy Additional Past Surgical Histo: kidney stone removal, gallbladder Alcohol Use: None Drug Use: Marijuana Adult General Chief Complaint Chief Complaint: FLANK PAIN HPI HPI 47-year-old male with past medical history of kidney stones presents with right sided flank pain which started at 1830 this evening. Patient does report seeing some blood in his urine. Reports symptoms feel similar to prior episodes. Denies fever or chills. Denies trauma. Denies rash. Review of Systems Review of Systems Constitutional: Denies fever or chills; reports generalized malaise Eyes: Denies change in visual acuity, redness, or eye pain [] HENT: Denies nasal congestion or sore throat [] Respiratory: Denies cough or shortness of breath [] Cardiovascular: Denies chest pain or palpitations GI: Reports abdominal pain and nausea; denies vomiting or diarrhea [] : Denies dysuria; reports hematuria Musculoskeletal: Reports right-sided flank pain Integument: Denies rash or skin lesions [] Neurologic: Denies headache, focal weakness or sensory changes [] Complete systems were reviewed and found to be within normal limits, except as documented in this note. Current Medications Current Medications Current Medications Medications (Trade) Dose Ordered Sig/Alice Start Time Stop Time Status Last Admin Dose Admin Acetaminophen/ Hydrocodone Bitart (Lortab 5/325) 2 tab 1X ONCE 06/08/18 23:45 06/08/18 23:46 DC 06/09/18 00:03 2 TAB Fentanyl Citrate (Fentanyl 2ml Vial) 75 mcg 1X ONCE 06/08/18 23:00 06/08/18 23:01 DC 06/08/18 22:47 75 MCG Hydromorphone HCl (Dilaudid) 0.5 mg 1X ONCE 06/08/18 23:45 06/08/18 23:45 DC Metoclopramide HCl (Reglan Vial) 10 mg 1X ONCE 06/08/18 22:30 06/08/18 22:31 DC 06/08/18 22:28 10 MG Sodium Chloride 1,000 ml @ 1,000 mls/hr 1X ONCE 06/08/18 22:30 06/08/18 23:29 DC 06/08/18 22:28 1,000 MLS/HR Allergies Allergies Allergies Coded Allergies Type Severity Reaction Last Updated Verified ketorolac Allergy Severe ANAPHYLAXIS; TOLERATES ASA 01/06/17 Yes NSAIDS (Non-Steroidal Anti-Inflamma Allergy Intermediate TOLERATES ASA Yes gabapentin Allergy Intermediate 12/11/14 Yes morphine Allergy Intermediate Hives, tolerates Dilaudid 12/10/14 Yes vancomycin Allergy Intermediate 06/05/16 Yes Physical Exam Physical Exam Constitutional: Well developed, well nourished, appears uncomfortable, non- toxic appearance. [] HENT: Normocephalic, atraumatic,, oropharynx moist Eyes: Conjunctiva normal, no discharge. [] Neck: Normal range of motion, no tenderness, supple Cardiovascular:Heart rate regular rhythm, no murmur [] Lungs & Thorax: Bilateral breath sounds clear to auscultation [] Abdomen: Soft, no tenderness Skin: Warm, dry, no erythema, no rash. [] Back: No tenderness, right sided CVA tenderness. [] Extremities: No tenderness, ROM intact, no edema. [] Neurologic: Alert and oriented X 3, no focal deficits noted. [] Psychologic: Affect normal, judgement normal, mood normal. [] Current Patient Data Vital Signs Vital Signs Date Time Temp Pulse Resp B/P (MAP) Pulse Ox O2 Delivery O2 Flow Rate FiO2 06/09/18 00:03 99 Room Air 06/08/18 21:45 97.5 78 20 115/70 (85) 97.5 Lab Values Laboratory Tests Test 06/08/18 21:10 06/08/18 22:23 Urine Collection Type Unknown Urine Color Yellow Urine Clarity Clear Urine pH 6.0 Urine Specific [place] 1.025 Urine Protein Negative mg/dL (NEG-TRACE) Urine Glucose (UA) 250 mg/dL (NEG) Urine Ketones (Stick) Negative mg/dL (NEG) Urine Blood Large (NEG) Urine Nitrite Negative (NEG) Urine Bilirubin Negative (NEG) Urine Urobilinogen Dipstick 0.2 mg/dL (0.2 mg/dL) Urine Leukocyte Esterase Negative (NEG) Urine RBC Tntc /HPF (0-2) Urine WBC Occ /HPF (0-4) Urine Squamous Epithelial Cells Few /LPF Urine Bacteria 0 /HPF (0-FEW) Urine Mucus Slight /LPF White Blood Count 12.3 x10^3/uL (4.0-11.0) H Red Blood Count 4.56 x10^6/uL (4.30-5.70) Hemoglobin 14.8 g/dL (13.0-17.5) Hematocrit 41.7 % (39.0-53.0) Mean Corpuscular Volume 92 fL (79-100) Mean Corpuscular Hemoglobin 32 pg (25-35) Mean Corpuscular Hemoglobin Concent 35 g/dL (31-37) Red Cell Distribution Width 13.3 % (11.5-14.5) Platelet Count 290 x10^3/uL (140-400) Neutrophils (%) (Auto) 67 % (31-73) Lymphocytes (%) (Auto) 25 % (24-48) Monocytes (%) (Auto) 7 % (0-9) Eosinophils (%) (Auto) 1 % (0-3) Basophils (%) (Auto) 0 % (0-3) Neutrophils # (Auto) 8.3 x10^3uL (1.8-7.7) H Lymphocytes # (Auto) 3.1 x10^3/uL (1.0-4.8) Monocytes # (Auto) 0.8 x10^3/uL (0.0-1.1) Eosinophils # (Auto) 0.1 x10^3/uL (0.0-0.7) Basophils # (Auto) 0.0 x10^3/uL (0.0-0.2) Sodium Level 135 mmol/L (136-145) L Potassium Level 4.3 mmol/L (3.5-5.1) Chloride Level 99 mmol/L (98-107) Carbon Dioxide Level 29 mmol/L (21-32) Anion Gap 7 (6-14) Blood Urea Nitrogen 26 mg/dL (8-26) Creatinine 0.9 mg/dL (0.7-1.3) Estimated GFR (Cockcroft-Gault) 90.8 BUN/Creatinine Ratio 29 (6-20) H Glucose Level 193 mg/dL (70-99) H Calcium Level 10.4 mg/dL (8.5-10.1) H Magnesium Level 2.0 mg/dL (1.8-2.4) Total Bilirubin 0.2 mg/dL (0.2-1.0) Aspartate Amino Transferase (AST) 16 U/L (15-37) Alanine Aminotransferase (ALT) 23 U/L (16-63) Alkaline Phosphatase 69 U/L (46-116) Total Protein 8.0 g/dL (6.4-8.2) Albumin 3.7 g/dL (3.4-5.0) Albumin/Globulin Ratio 0.9 (1.0-1.7) L Lipase 258 U/L (73-393) Laboratory Tests 06/08/18 22:23 Laboratory Tests 06/08/18 22:23 EKG EKG [] Radiology/Procedures Radiology/Procedures PROCEDURE: CT ABDOMEN PELVIS WO CONTRAST PQRS Compliance statement: One or more of the following individualized dose reduction techniques were utilized for this examination: 1. Automated exposure control. 2. Adjustment of the mA and/or kV according to patient size. 3. Use of iterative reconstruction technique. Indication:right side flank pain, r/o stone, prior sent TECHNIQUE: CT abdomen and pelvis without IV contrast with multiplanar reformats. COMPARISON: 01/14/2018 FINDINGS: Limited evaluation of solid abdominal and pelvic organs due to lack of IV contrast. Heart is normal in size. No pericardial or pleural effusion. Clear lung bases. Noncontrast appearance of the liver, spleen, pancreas, adrenals within normal limits. Status post cholecystectomy. Punctate nonobstructing right renal stone. No hydronephrosis. No free pelvic fluid or ascites. No enlarged retroperitoneal or pelvic adenopathy. No bowel obstruction. Urinary bladder demonstrates no radiopaque stones. The prostate and seminal vesicles show no large mass. No pneumoperitoneum. No suspicious bony lesion. IMPRESSION: Limited evaluation of solid abdominal and pelvic organs due to lack of IV contrast. Punctate nonobstructing right renal stone. Electronically signed by: Tony Akbar DO (06/08/2018 11:14 PM) [facility] Course & Med Decision Making Course & Med Decision Making Pertinent Labs and Imaging studies reviewed. (See chart for details) Patient presents with history of present illness and physical exam concerning for obstructing ureteral calculi. Symptomatic treatment provided. IV fluid hydration also given. UA with hematuria. Labs obtained and posted to chart. Creatinine stable. CT abdomen/pelvis without acute process. Question patient recently passing a nonobstructing stone. Patient stable for discharge with outpatient follow-up with PCP/ urology. Discussed findings and plan with patient and family, who acknowledge understanding and agreement. Maisha Disclaimer Dragon Disclaimer This electronic medical record was generated, in whole or in part, using a voice recognition dictation system. Departure Departure Impression: Primary Impression: Flank pain Disposition: HOME, SELF-CARE Condition: STABLE Referrals: UNKNOWN PCP NAME (PCP) Patient Instructions: Flank Pain, [id number] Scripts Hydrocodone/Apap 5-325 (NORCO 5-325 TABLET) 1 Each Tablet 1 TAB PO PRN Q6HRS PRN for PAIN, #6 TAB 0 Refills Prov: DENVER RIOS DO 06/08/18 DENVER RIOS DO Jun 08, 2018 23:22
[2018-06-08] MEDS ORDERED: HYDR-3164 PO (23:28)
[2018-06-08] MEDS ORDERED: HYDROmorphone 2 MG/ML VIAL IV ONE (23:45)
[2018-06-08] MEDS ORDERED: HYDROcodone/APAP 5/325MG 1 TAB TABLET PO ONE (23:45)
== END 2018-06-09 00:10 | disposition home or self-care (01) ==
LOC: ER 21:03
DX: R10.9 Unspecified abdominal pain (principal); N20.0 Calculus of kidney; J45.909 Unspecified asthma, uncomplicated; E11.9 Type 2 diabetes mellitus without complications; I10 Essential (primary) hypertension; Z90.49 Acquired absence of other specified parts of digestive tract; Z90.89 Acquired absence of other organs; Z88.8 Allergy status to other drugs, medicaments and biological substances; Z88.5 Allergy status to narcotic agent; Z88.1 Allergy status to other antibiotic agents
CPT/HCPCS: 36415; 74176; 80053; 81001; 83690; 83735; 85025; 96374; 96375; 99284; J2765; J3010; J7030; 99285-25

== ENCOUNTER 2018-12-15 20:02 | Emergency (ER) | payer SELFPAY ==
[~2018-12-15] VITALS: Ht 172.7 cm; Wt 125.2 kg
[~2018-12-15 20:02] MED LIST changes: +ALBU2.5V8 IH; -PROAIR HFA8.5 GM IH
[2018-12-15] MEDS ORDERED: fentaNYL PF VIAL 100 MCG/2 ML VIAL IM ONE (20:45)
[2018-12-15 20:48] LABS: BASO # 0.1 x10^3/uL (0.0-0.2); BASO % 0 % (0-3); EOS # 0.1 x10^3/uL (0.0-0.7); EOS % 1 % (0-3); HEMATOCRIT 44.5 % (39.0-53.0); HEMOGLOBIN 15.5 g/dL (13.0-17.5); LYMPH # 2.7 x10^3/uL (1.0-4.8); LYMPH % 17 % (24-48); MEAN CORPUSCULAR HEMOGLOBIN 31 pg (25-35); MEAN CORPUSCULAR HGB CONC 35 g/dL (31-37); MEAN CORPUSCULAR VOLUME 90 fL (79-100); MONO % 6 % (0-9); NEUT # 11.7 x10^3uL (1.8-7.7); NEUT % 76 % (31-73); PLATELET COUNT 294 x10^3/uL (140-400); RED BLOOD COUNT 4.96 x10^6/uL (4.30-5.70); WHITE BLOOD COUNT 15.5 x10^3/uL (4.0-11.0)
[2018-12-15 20:56] LABS: CALCIUM 10.2 mg/dL (8.5-10.1); CREATININE 0.7 mg/dL (0.7-1.3); GFR 120.9; POTASSIUM 4.7 mmol/L (3.5-5.1)
[2018-12-15] MEDS ORDERED: fentaNYL PF VIAL 100 MCG/2 ML VIAL IV ONE ×3 (21:00→21:45)
[2018-12-15 21:02] LABS: ALBUMIN 3.7 g/dL (3.4-5.0); ALBUMIN/GLOBULIN RATIO 0.9 (1.0-1.7); TOTAL BILIRUBIN 0.3 mg/dL (0.2-1.0); TOTAL PROTEIN 7.9 g/dL (6.4-8.2)
--- NOTE | 2018-12-15 21:07 | RAD ---
Scrotal ultrasound 12/15/2018 CLINICAL HISTORY: Left scrotal pain and swelling. TECHNIQUE: Using a combination of real-time ultrasound imaging and color-flow and pulse Doppler imaging techniques, duplex evaluation of scrotal sac and its contents was performed. Multiple images were obtained. FINDINGS: Comparison study is dated 01/14/2018. Both testicles are within normal limits in size and echogenicity. The right testicle measures 4.8 x 3.0 x 2.3 cm in longitudinal, transverse, and AP dimensions. The left testicle measures 4.7 x 2.9 x 2.5 cm in size. No focal abnormality of either testicle is seen. Normal color-flow and pulse Doppler imaging to both testicles is noted. Both epididymal heads are within normal limits in size and echogenicity. A 9 mm complex cyst is seen involving the left epididymal head. There are small bilateral hydroceles, left greater than right. IMPRESSION: 1. Small bilateral hydroceles, left greater than right. 2. 9 mm complex cyst is seen involving the left epididymal head. This is unchanged. Electronically signed by: Jem Almonte MD (12/15/2018 9:04 PM) [facility]
[2018-12-15 21:23] LABS: BILIRUBIN,URINE NEGATIVE (NEG); CLARITY,URINE CLEAR; COLOR,URINE YELLOW; NITRITE,URINE NEGATIVE (NEG); PROTEIN,URINE NEGATIVE (NEG-TRACE); UROBILINOGEN,URINE 0.2 mg/dL (0.2 mg/dL)
[2018-12-15 21:29] LABS: BACTERIA,URINE 0 /HPF (0-FEW); RBC,URINE OCC /HPF (0-2); SQUAMOUS EPITHELIAL CELL,UR FEW /LPF; WBC,URINE OCC /HPF (0-4)
[2018-12-15 21:38] VITALS: BP 148/94
[2018-12-15] MEDS ORDERED: OXYC1TAB15 PO (21:43)
--- NOTE | 2018-12-15 21:43 | PHYS DOC ---
Past Medical History Past Medical History: Asthma, Diabetes-Type II, Hypertension, Kidney Stone, Pancreatitis Additional Past Medical Histor: STAPH INFECTION, gastroparesis, Epididymitis Past Surgical History: Appendectomy, Cholecystectomy Additional Past Surgical Histo: kidney stone removal, Alcohol Use: None Drug Use: Marijuana Adult General Chief Complaint Chief Complaint: TESTICULAR PAIN OR INJURY HPI HPI Patient is a 48 year old [f__sex] who presents with [] Review of Systems Review of Systems Constitutional: Denies fever or chills [] Eyes: Denies change in visual acuity, redness, or eye pain [] HENT: Denies nasal congestion or sore throat [] Respiratory: Denies cough or shortness of breath [] Cardiovascular: No additional information not addressed in HPI [] GI: Denies abdominal pain, nausea, vomiting, bloody stools or diarrhea [] : Denies dysuria or hematuria [] Musculoskeletal: Denies back pain or joint pain [] Integument: Denies rash or skin lesions [] Neurologic: Denies headache, focal weakness or sensory changes [] Endocrine: Denies polyuria or polydipsia [] All other systems were reviewed and found to be within normal limits, except as documented in this note. Current Medications Current Medications Current Medications Medications (Trade) Dose Ordered Sig/Alice Start Time Stop Time Status Last Admin Dose Admin Fentanyl Citrate (Fentanyl 2ml Vial) 75 mcg 1X ONCE 12/15/18 21:15 12/15/18 21:16 DC 12/15/18 20:59 75 MCG Allergies Allergies Allergies Coded Allergies Type Severity Reaction Last Updated Verified ketorolac Allergy Severe ANAPHYLAXIS; TOLERATES ASA 01/06/17 Yes NSAIDS (Non-Steroidal Anti-Inflamma Allergy Intermediate TOLERATES ASA 01/06/17 Yes gabapentin Allergy Intermediate 12/11/14 Yes morphine Allergy Intermediate Hives, tolerates Dilaudid 12/10/14 Yes vancomycin Allergy Intermediate 06/05/16 Yes Physical Exam Physical Exam Constitutional: Well developed, well nourished, no acute distress, non-toxic appearance. [] HENT: Normocephalic, atraumatic, bilateral external ears normal, oropharynx moist, no oral exudates, nose normal. [] Eyes: PERRLA, EOMI, conjunctiva normal, no discharge. [] Neck: Normal range of motion, no tenderness, supple, no stridor. [] Cardiovascular:Heart rate regular rhythm, no murmur [] Lungs & Thorax: Bilateral breath sounds clear to auscultation [] Abdomen: Bowel sounds normal, soft, no tenderness, no masses, no pulsatile masses. [] Skin: Warm, dry, no erythema, no rash. [] Back: No tenderness, no CVA tenderness. [] Extremities: No tenderness, no cyanosis, no clubbing, ROM intact, no edema. [] Neurologic: Alert and oriented X 3, normal motor function, normal sensory function, no focal deficits noted. [] Psychologic: Affect normal, judgement normal, mood normal. [] Current Patient Data Vital Signs Vital Signs Date Time Temp Pulse Resp B/P (MAP) Pulse Ox O2 Delivery O2 Flow Rate FiO2 12/15/18 20:16 98.0 77 24 189/99 (129) 96 Room Air 98.0 Lab Values Laboratory Tests Test 12/15/18 20:30 12/15/18 21:15 White Blood Count 15.5 x10^3/uL (4.0-11.0) H Red Blood Count 4.96 x10^6/uL (4.30-5.70) Hemoglobin 15.5 g/dL (13.0-17.5) Hematocrit 44.5 % (39.0-53.0) Mean Corpuscular Volume 90 fL (79-100) Mean Corpuscular Hemoglobin 31 pg (25-35) Mean Corpuscular Hemoglobin Concent 35 g/dL (31-37) Red Cell Distribution Width 13.0 % (11.5-14.5) Platelet Count 294 x10^3/uL (140-400) Neutrophils (%) (Auto) 76 % (31-73) H Lymphocytes (%) (Auto) 17 % (24-48) L Monocytes (%) (Auto) 6 % (0-9) Eosinophils (%) (Auto) 1 % (0-3) Basophils (%) (Auto) 0 % (0-3) Neutrophils # (Auto) 11.7 x10^3uL (1.8-7.7) H Lymphocytes # (Auto) 2.7 x10^3/uL (1.0-4.8) Monocytes # (Auto) 1.0 x10^3/uL (0.0-1.1) Eosinophils # (Auto) 0.1 x10^3/uL (0.0-0.7) Basophils # (Auto) 0.1 x10^3/uL (0.0-0.2) Sodium Level 136 mmol/L (136-145) Potassium Level 4.7 mmol/L (3.5-5.1) Chloride Level 100 mmol/L (98-107) Carbon Dioxide Level 22 mmol/L (21-32) Anion Gap 14 (6-14) Blood Urea Nitrogen 20 mg/dL (8-26) Creatinine 0.7 mg/dL (0.7-1.3) Estimated GFR (Cockcroft-Gault) 120.9 BUN/Creatinine Ratio 29 (6-20) H Glucose Level 158 mg/dL (70-99) H Calcium Level 10.2 mg/dL (8.5-10.1) H Magnesium Level 2.0 mg/dL (1.8-2.4) Total Bilirubin 0.3 mg/dL (0.2-1.0) Aspartate Amino Transferase (AST) 19 U/L (15-37) Alanine Aminotransferase (ALT) 32 U/L (16-63) Alkaline Phosphatase 80 U/L (46-116) Total Protein 7.9 g/dL (6.4-8.2) Albumin 3.7 g/dL (3.4-5.0) Albumin/Globulin Ratio 0.9 (1.0-1.7) L Lipase 67 U/L (73-393) L Urine Collection Type Void Urine Color Yellow Urine Clarity Clear Urine pH 6.0 Urine Specific [place] 1.020 Urine Protein Negative mg/dL (NEG-TRACE) Urine Glucose (UA) Negative mg/dL (NEG) Urine Ketones (Stick) Negative mg/dL (NEG) Urine Blood Negative (NEG) Urine Nitrite Negative (NEG) Urine Bilirubin Negative (NEG) Urine Urobilinogen Dipstick 0.2 mg/dL (0.2 mg/dL) Urine Leukocyte Esterase Negative (NEG) Urine RBC Occ /HPF (0-2) Urine WBC Occ /HPF (0-4) Urine Squamous Epithelial Cells Few /LPF Urine Bacteria 0 /HPF (0-FEW) Urine Mucus Mod /LPF Laboratory Tests 12/15/18 20:30 Laboratory Tests 12/15/18 20:30 EKG EKG [] Radiology/Procedures Radiology/Procedures [] Course & Med Decision Making Course & Med Decision Making Pertinent Labs and Imaging studies reviewed. (See chart for details) [] Dragon Disclaimer Dragon Disclaimer This electronic medical record was generated, in whole or in part, using a voice recognition dictation system. Departure Departure Impression: Primary Impression: Testicular pain, left Additional Impressions: Epididymal cyst Hydrocele of testis Disposition: HOME, SELF-CARE Condition: STABLE Referrals: UNKNOWN PCP NAME (PCP) KATHY SCHREIBER MD Patient Instructions: Testicular Masses, Testicular Problems and Self-Exam Scripts Oxycodone/Apap 5-325 (PERCOCET 5-325 MG TABLET ) 1 Each Tablet 1 TAB PO PRN Q6HRS PRN for PAIN, #14 TAB 0 Refills Prov: DENVER RIOS DO 12/15/18 Problem Qualifiers DENVER RIOS DO December 15, 2018 21:43
== END 2018-12-15 22:07 | disposition home or self-care (01) ==
LOC: ER 20:02
DX: N50.3 Cyst of epididymis (principal); N50.812 Left testicular pain; N43.3 Hydrocele, unspecified; J45.909 Unspecified asthma, uncomplicated; E11.9 Type 2 diabetes mellitus without complications; I10 Essential (primary) hypertension; Z90.89 Acquired absence of other organs; Z90.49 Acquired absence of other specified parts of digestive tract; Z87.442 Personal history of urinary calculi; Z88.8 Allergy status to other drugs, medicaments and biological substances; Z88.5 Allergy status to narcotic agent; Z88.1 Allergy status to other antibiotic agents
CPT/HCPCS: 36415; 76870; 80053; 81001; 83690; 83735; 85025; 87491; 87591; 96374; 96376; 99285; J3010

== ENCOUNTER 2019-03-13 22:08 | Emergency (ER) | payer SELFPAY ==
[~2019-03-13] VITALS: Ht 172.7 cm; Wt 120.2 kg
[~2019-03-13 22:08] MED LIST changes: +OXYC1TAB15 PO
--- NOTE | 2019-03-13 23:20 | PHYS DOC ---
Past Medical History Past Medical History: Asthma, Diabetes-Type II, Hypertension, Kidney Stone, Pancreatitis Additional Past Medical Histor: STAPH INFECTION, gastroparesis, Epididymitis Past Surgical History: Appendectomy, Cholecystectomy Additional Past Surgical Histo: kidney stone removal, Alcohol Use: None Drug Use: Marijuana Adult General Chief Complaint Chief Complaint: ABDOMINAL PAIN HPI HPI Patient is a 48 year old male that presents to the ER with left upper quadrant abdominal pain this been ongoing since Wednesday. The patient states the pain gets worse when he lays flat or eats. The patient also has nausea. The patient rates his pain as 8 out of 10 and stabbing. The patient did take a [place] as well as Zofran around 4:00 PM today. Is also last time he ate. Has a history of pancreatitis. Does not have a gallbladder, or and appendix. Review of Systems Review of Systems Constitutional: Denies fever or chills [] Eyes: Denies change in visual acuity, redness, or eye pain [] HENT: Denies nasal congestion or sore throat [] Respiratory: Denies cough or shortness of breath [] Cardiovascular: No additional information not addressed in HPI [] GI: Reports abdominal pain, nausea, Denies vomiting, bloody stools or diarrhea [] : Denies dysuria or hematuria [] Musculoskeletal: Denies back pain or joint pain [] Integument: Denies rash or skin lesions [] Neurologic: Denies headache, focal weakness or sensory changes [] Endocrine: Denies polyuria or polydipsia [] Complete systems were reviewed and found to be within normal limits, except as documented in this note. Current Medications Current Medications Current Medications Medications (Trade) Dose Ordered Sig/Alice Start Time Stop Time Status Last Admin Dose Admin Fentanyl Citrate (Fentanyl 2ml Vial) 100 mcg STK-MED ONCE 03/13/19 23:40 03/13/19 23:40 DC Hydromorphone HCl (Dilaudid) 0.5 mg 1X ONCE 03/14/19 00:30 03/14/19 00:31 DC 03/14/19 00:29 0.5 MG Info (CONTRAST GIVEN -- Rx MONITORING) 1 each PRN DAILY PRN 03/14/19 00:00 03/16/19 00:00 Iohexol (Omnipaque 300 Mg/ml) 75 ml 1X ONCE 03/14/19 00:00 03/14/19 00:01 DC 03/14/19 00:08 75 ML Multi-Ingredient Mouthwash/Gargle (Gi Cocktail) 20 ml 1X ONCE 03/14/19 00:45 03/14/19 00:46 DC 03/14/19 00:54 20 ML Ondansetron HCl (Zofran) 4 mg STK-MED ONCE 03/13/19 23:39 03/13/19 23:40 DC Sodium Chloride 1,000 ml @ 1,000 mls/hr 1X ONCE 03/13/19 23:30 03/14/19 00:29 DC 03/13/19 23:47 1,000 MLS/HR Allergies Allergies Allergies Coded Allergies Type Severity Reaction Last Updated Verified ketorolac Allergy Severe ANAPHYLAXIS; TOLERATES ASA 01/06/17 Yes NSAIDS (Non-Steroidal Anti-Inflamma Allergy Intermediate TOLERATES ASA 01/06/17 Yes gabapentin Allergy Intermediate 12/11/14 Yes morphine Allergy Intermediate Hives, tolerates Dilaudid 12/10/14 Yes vancomycin Allergy Intermediate 06/05/16 Yes Physical Exam Physical Exam Constitutional: Well developed, well nourished, no acute distress, non-toxic appearance. [] HENT: Normocephalic, atraumatic, bilateral external ears normal, oropharynx moist, no oral exudates, nose normal. [] Eyes: PERRLA, EOMI, conjunctiva normal, no discharge. [] Neck: Normal range of motion, no tenderness, supple, no stridor. [] Cardiovascular:Heart rate regular rhythm, no murmur [] Lungs & Thorax: Bilateral breath sounds clear to auscultation [] Abdomen: Bowel sounds normal, soft, LUQ and epigastric tenderness on palpation, no masses, no pulsatile masses. [] Skin: Warm, dry, no erythema, no rash. [] Back: No tenderness, no CVA tenderness. [] Extremities: No tenderness, no cyanosis, no clubbing, ROM intact, no edema. [] Neurologic: Alert and oriented X 3, normal motor function, normal sensory function, no focal deficits noted. [] Psychologic: Affect normal, judgement normal, mood normal. [] Current Patient Data Vital Signs Vital Signs Date Time Temp Pulse Resp B/P (MAP) Pulse Ox O2 Delivery O2 Flow Rate FiO2 03/14/19 00:29 22 98 03/13/19 23:47 Room Air 03/13/19 23:06 98.8 88 180/96 (124) 98.8 Lab Values Laboratory Tests Test 03/13/19 23:19 03/13/19 23:55 White Blood Count 15.1 x10^3/uL (4.0-11.0) H Red Blood Count 4.80 x10^6/uL (4.30-5.70) Hemoglobin 15.1 g/dL (13.0-17.5) Hematocrit 43.0 % (39.0-53.0) Mean Corpuscular Volume 90 fL (79-100) Mean Corpuscular Hemoglobin 31 pg (25-35) Mean Corpuscular Hemoglobin Concent 35 g/dL (31-37) Red Cell Distribution Width 13.1 % (11.5-14.5) Platelet Count 294 x10^3/uL (140-400) Neutrophils (%) (Auto) 69 % (31-73) Lymphocytes (%) (Auto) 23 % (24-48) L Monocytes (%) (Auto) 7 % (0-9) Eosinophils (%) (Auto) 1 % (0-3) Basophils (%) (Auto) 1 % (0-3) Neutrophils # (Auto) 10.4 x10^3/uL (1.8-7.7) H Lymphocytes # (Auto) 3.5 x10^3/uL (1.0-4.8) Monocytes # (Auto) 1.0 x10^3/uL (0.0-1.1) Eosinophils # (Auto) 0.1 x10^3/uL (0.0-0.7) Basophils # (Auto) 0.1 x10^3/uL (0.0-0.2) Sodium Level 138 mmol/L (136-145) Potassium Level 3.9 mmol/L (3.5-5.1) Chloride Level 101 mmol/L (98-107) Carbon Dioxide Level 30 mmol/L (21-32) Anion Gap 7 (6-14) Blood Urea Nitrogen 13 mg/dL (8-26) Creatinine 0.8 mg/dL (0.7-1.3) Estimated GFR (Cockcroft-Gault) 103.6 BUN/Creatinine Ratio 16 (6-20) Glucose Level 80 mg/dL (70-99) Calcium Level 10.2 mg/dL (8.5-10.1) H Total Bilirubin 0.2 mg/dL (0.2-1.0) Aspartate Amino Transferase (AST) 13 U/L (15-37) L Alanine Aminotransferase (ALT) 20 U/L (16-63) Alkaline Phosphatase 67 U/L (46-116) Total Protein 8.0 g/dL (6.4-8.2) Albumin 3.6 g/dL (3.4-5.0) Albumin/Globulin Ratio 0.8 (1.0-1.7) L Lipase 68 U/L (73-393) L Urine Collection Type Void Urine Color Yellow Urine Clarity Clear Urine pH 7.0 Urine Specific [place] 1.010 Urine Protein Negative mg/dL (NEG-TRACE) Urine Glucose (UA) Negative mg/dL (NEG) Urine Ketones (Stick) Negative mg/dL (NEG) Urine Blood Negative (NEG) Urine Nitrite Negative (NEG) Urine Bilirubin Negative (NEG) Urine Urobilinogen Dipstick 0.2 mg/dL (0.2 mg/dL) Urine Leukocyte Esterase Negative (NEG) Urine RBC Occ /HPF (0-2) Urine WBC Occ /HPF (0-4) Urine Squamous Epithelial Cells Occ /LPF Urine Bacteria 0 /HPF (0-FEW) Laboratory Tests 03/13/19 23:19 Laboratory Tests 03/13/19 23:19 EKG EKG [] Radiology/Procedures Radiology/Procedures [][facility] [address] [place], [place] [id number] IMAGING REPORT Signed PATIENT: ANDRES FAY ACCOUNT: [id number] : 1970 LOCATION: ER AGE: 48 SEX: M EXAM STATUS: REG ER ORD. PHYSICIAN: DENVER DENNIS APRN REASON: abd pain PROCEDURE: CT ABD PELV W/ IV CONTRST ONLY CT abdomen and pelvis with contrast: Reason for examination: Abdominal pain. Comparison is made to previous study dated 06/08/2018. Helical images were obtained through the abdomen and pelvis with intravenous administration of 75 cc of contrast. Reconstruction was performed in sagittal and coronal planes. Exposure: One or more of the following individualized dose reduction techniques were utilized for this examination: 1. Automated exposure control 2. Adjustment of the mA and/or kV according to patient size 3. Use of iterative reconstruction technique. The lung bases are clear. The heart size is normal with no pericardial effusion. No abnormality seen at the liver, spleen, adrenal glands or pancreas. The gallbladder surgically absent. The inferior vena cava and aorta shows no acute abnormalities. The appendix is not identified and may be surgically absent. There is no evidence of diverticulosis or diverticulitis. The small intestinal tract shows no abnormal dilatation or wall thickening and no bowel obstruction is seen. No abnormality seen stomach. The kidneys show no renal masses, renal calculi, hydronephrosis or evidence of obstructive uropathy. No abnormality seen at the bladder, prostate gland or seminal vesicles. No free fluid or free air is seen in the abdomen or pelvis. There are no acute bony abnormality seen. There are severe degenerative changes at the L4-5 and L5-S1 disc levels. IMPRESSION: No acute abnormality seen in the abdomen or pelvis. Degenerative changes at the L4-5 and L5-S1 disc levels. Electronically signed by: Tonya Arredondo MD (03/14/2019 12:26 AM) [facility] DICTATED and SIGNED BY: TONYA ARREDONDO MD DATE: 03/14/19 0026 Course & Med Decision Making Course & Med Decision Making Pertinent Labs and Imaging studies reviewed. (See chart for details) Will get CT scan, labs including lipase, and give supportive care. Labs are unremarkable with exception of elevated WBC at 15.2 Imaging is negative. Patient has been in pain. Will try GI cocktail. GI cocktail did not improve pain. Will have follow up with GI and PCP. Dragon Disclaimer Dragon Disclaimer This electronic medical record was generated, in whole or in part, using a voice recognition dictation system. Departure Departure Impression: Primary Impression: Abdominal pain Disposition: 01 HOME, SELF-CARE Condition: STABLE Referrals: UNKNOWN PCP NAME (PCP) CYRUS JO MD Patient Instructions: Abdominal Pain Additional Instructions: Thank you for visiting [facility]. We appreciate you trusting us with your care. If any additional problems come up don't hesitate to return to visit us. Please follow up with your primary care provider so they can plan additional care if needed and know about the problem that you had. If symptoms worsen come back to the Emergency Department. Any concerning symptoms that start such as chest pain, shortness of air, weakness or numbness on one side of the body, running high fevers or any other concerning symptoms return to the ER. DENVER DENNIS APRN Mar 13, 2019 23:20
[2019-03-13 23:26] LABS: BASO # 0.1 x10^3/uL (0.0-0.2); BASO % 1 % (0-3); EOS # 0.1 x10^3/uL (0.0-0.7); EOS % 1 % (0-3); HEMOGLOBIN 15.1 g/dL (13.0-17.5); LYMPH # 3.5 x10^3/uL (1.0-4.8); LYMPH % 23 % (24-48); MEAN CORPUSCULAR HEMOGLOBIN 31 pg (25-35); MEAN CORPUSCULAR HGB CONC 35 g/dL (31-37); MEAN CORPUSCULAR VOLUME 90 fL (79-100); MONO % 7 % (0-9); NEUT # 10.4 x10^3/uL (1.8-7.7); NEUT % 69 % (31-73); PLATELET COUNT 294 x10^3/uL (140-400); RED CELL DISTRIBUTION WIDTH 13.1 % (11.5-14.5); WHITE BLOOD COUNT 15.1 x10^3/uL (4.0-11.0)
[2019-03-13] MEDS ORDERED: ONDANSETRON PF 4 MG/2 ML VIAL. IV ONE (23:30)
[2019-03-13] MEDS ORDERED: fentaNYL PF VIAL 100 MCG/2 ML VIAL IV ONE (23:30)
[2019-03-13] MEDS ORDERED: IV NORMAL SALINE 1000ML BAG 1,000 ML IV ONE (23:30)
[2019-03-13 23:39] LABS: CALCIUM 10.2 mg/dL (8.5-10.1); CREATININE 0.8 mg/dL (0.7-1.3); GFR 103.6; POTASSIUM 3.9 mmol/L (3.5-5.1)
[2019-03-13] MEDS ORDERED: ONDANSETRON PF 4 MG/2 ML VIAL. ONE (23:39)
[2019-03-13] MEDS ORDERED: fentaNYL PF VIAL 100 MCG/2 ML VIAL ONE (23:40)
[2019-03-13 23:44] LABS: ALBUMIN 3.6 g/dL (3.4-5.0); ALBUMIN/GLOBULIN RATIO 0.8 (1.0-1.7); TOTAL BILIRUBIN 0.2 mg/dL (0.2-1.0)
[2019-03-14] MEDS ORDERED: IOHEXOL 300 MG/ML 100ML VIAL. IV ONE
[2019-03-14] MEDS ORDERED: CONTRAST GIVEN. MC PRN
[2019-03-14 00:06] LABS: BILIRUBIN,URINE NEGATIVE (NEG); CLARITY,URINE CLEAR; COLOR,URINE YELLOW; NITRITE,URINE NEGATIVE (NEG); PROTEIN,URINE NEGATIVE (NEG-TRACE); UROBILINOGEN,URINE 0.2 mg/dL (0.2 mg/dL)
[2019-03-14 00:18] LABS: BACTERIA,URINE 0 /HPF (0-FEW); RBC,URINE OCC /HPF (0-2); SQUAMOUS EPITHELIAL CELL,UR OCC /LPF; WBC,URINE OCC /HPF (0-4)
--- NOTE | 2019-03-14 00:29 | RAD ---
CT abdomen and pelvis with contrast: Reason for examination: Abdominal pain. Comparison is made to previous study dated 06/08/2018. Helical images were obtained through the abdomen and pelvis with intravenous administration of 75 cc of contrast. Reconstruction was performed in sagittal and coronal planes. Exposure: One or more of the following individualized dose reduction techniques were utilized for this examination: 1. Automated exposure control 2. Adjustment of the mA and/or kV according to patient size 3. Use of iterative reconstruction technique. The lung bases are clear. The heart size is normal with no pericardial effusion. No abnormality seen at the liver, spleen, adrenal glands or pancreas. The gallbladder surgically absent. The inferior vena cava and aorta shows no acute abnormalities. The appendix is not identified and may be surgically absent. There is no evidence of diverticulosis or diverticulitis. The small intestinal tract shows no abnormal dilatation or wall thickening and no bowel obstruction is seen. No abnormality seen stomach. The kidneys show no renal masses, renal calculi, hydronephrosis or evidence of obstructive uropathy. No abnormality seen at the bladder, prostate gland or seminal vesicles. No free fluid or free air is seen in the abdomen or pelvis. There are no acute bony abnormality seen. There are severe degenerative changes at the L4-5 and L5-S1 disc levels. IMPRESSION: No acute abnormality seen in the abdomen or pelvis. Degenerative changes at the L4-5 and L5-S1 disc levels. Electronically signed by: Kenzie Varner MD (03/14/2019 12:26 AM) [facility]
[2019-03-14] MEDS ORDERED: HYDROmorphone 2 MG/ML VIAL IV ONE (00:30)
[2019-03-14] MEDS ORDERED: LIDO:MAALOX 1:1 20 ML SINGLE DOSE. SWSW ONE (00:45)
[2019-03-14 01:00] VITALS: BP 146/71
== END 2019-03-14 01:08 | disposition home or self-care (01) ==
LOC: ER 22:08
DX: R10.12 Left upper quadrant pain (principal); R11.0 Nausea; E11.9 Type 2 diabetes mellitus without complications; I10 Essential (primary) hypertension; J45.909 Unspecified asthma, uncomplicated; Z90.89 Acquired absence of other organs; Z90.49 Acquired absence of other specified parts of digestive tract; Z87.442 Personal history of urinary calculi; Z88.6 Allergy status to analgesic agent; Z88.1 Allergy status to other antibiotic agents; Z88.5 Allergy status to narcotic agent; Z88.8 Allergy status to other drugs, medicaments and biological substances
CPT/HCPCS: 36415; 74177; 80053; 81001; 83690; 85025; 96374; 96375; 99285; J1170; J2405; J3010; J7030; Q9967

== ENCOUNTER 2019-09-23 20:41 | Emergency (ER) | payer SELFPAY ==
[~2019-09-23] VITALS: Ht 172.7 cm; Wt 129.5 kg
[~2019-09-23 20:41] MED LIST changes: +HYDR-2145 PO; +INSU100V6 SQ; +LISI-334 PO; +OMEP40CA45 PO; -OMEP40CA5 PO
[2019-09-23 21:45] LABS: BASO # 0.1 x10^3/uL (0.0-0.2); BASO % 1 % (0-3); EOS # 0.8 x10^3/uL (0.0-0.7); EOS % 7 % (0-3); HEMATOCRIT 41.9 % (39.0-53.0); HEMOGLOBIN 14.4 g/dL (13.0-17.5); LYMPH # 2.2 x10^3/uL (1.0-4.8); LYMPH % 18 % (24-48); MEAN CORPUSCULAR HEMOGLOBIN 31 pg (25-35); MEAN CORPUSCULAR HGB CONC 35 g/dL (31-37); MEAN CORPUSCULAR VOLUME 89 fL (79-100); MONO # 0.7 x10^3/uL (0.0-1.1); MONO % 6 % (0-9); NEUT # 8.7 x10^3/uL (1.8-7.7); NEUT % 69 % (31-73); PLATELET COUNT 263 x10^3/uL (140-400); RED BLOOD COUNT 4.72 x10^6/uL (4.30-5.70); RED CELL DISTRIBUTION WIDTH 13.3 % (11.5-14.5); WHITE BLOOD COUNT 12.6 x10^3/uL (4.0-11.0)
[2019-09-23] MEDS ORDERED: IV NORMAL SALINE 1000ML BAG 1,000 ML IV SCH (21:45)
--- NOTE | 2019-09-23 21:46 | PHYS DOC ---
Past Medical History Past Medical History: Asthma, Diabetes-Type II, Hypertension, Kidney Stone, Pancreatitis, Other Additional Past Medical Histor: STAPH INFECTION,gastroparesis,Epididymitis,PROSTATITIS Past Surgical History: Appendectomy, Cholecystectomy Additional Past Surgical Histo: kidney stone removal, ABSCESS REMOVED FROM BACK Smoking Status: Former Smoker Alcohol Use: None Drug Use: Marijuana Social History Narrative: OCCASIONALLY Adult General Chief Complaint Chief Complaint: ABDOMINAL PAIN HPI HPI Patient is a 48 year old male presents ER today for evaluation of epigastric abdominal pain that radiated to his back t, has been going on for 5 days. Patient said he has a history of pancreatitis, he feels he has another pancreatitis flare. Patient denies drinking alcohol. Patient has a history of diabetes, history of gastroparesis. Patient denies any fever, no chest pain, no trouble breathing. Review of Systems Review of Systems Constitutional: Denies fever or chills [] Eyes: Denies change in visual acuity, redness, or eye pain [] HENT: Denies nasal congestion or sore throat [] Respiratory: Denies cough or shortness of breath [] Cardiovascular: No additional information not addressed in HPI [] GI: Positive for abdominal pain, nausea, NO vomiting, bloody stools or diarrhea [] : Denies dysuria or hematuria [] Musculoskeletal: Denies back pain or joint pain [] Integument: Denies rash or skin lesions [] Neurologic: Denies headache, focal weakness or sensory changes [] Endocrine: Denies polyuria or polydipsia [] All other systems were reviewed and found to be within normal limits, except as documented in this note. Current Medications Current Medications Current Medications Medications (Trade) Dose Ordered Sig/Alice Start Time Stop Time Status Last Admin Dose Admin Diphenhydramine HCl (Benadryl) 25 mg 1X ONCE 09/23/19 23:45 09/23/19 23:46 DC Famotidine (Pepcid Vial) 20 mg 1X ONCE 09/23/19 23:45 09/23/19 23:46 DC Fentanyl Citrate (Fentanyl 2ml Vial) 75 mcg 1X ONCE 09/23/19 22:00 09/23/19 22:01 DC 09/23/19 21:58 75 MCG Info (CONTRAST GIVEN -- Rx MONITORING) 1 each PRN DAILY PRN 09/23/19 22:30 09/25/19 22:29 Iohexol (Omnipaque 300 Mg/ml) 75 ml 1X ONCE 09/23/19 22:30 09/23/19 22:31 DC 09/23/19 22:58 75 ML Lorazepam (Ativan Inj) 2 mg 1X ONCE 09/23/19 23:45 09/23/19 23:46 DC Magnesium Sulfate 50 ml @ 25 mls/hr 1X ONCE 09/23/19 22:15 09/24/19 00:14 09/23/19 22:37 25 MLS/HR Metoclopramide HCl (Reglan Vial) 10 mg 1X ONCE 09/23/19 23:45 09/23/19 23:46 DC 09/24/19 00:03 10 MG Multi-Ingredient Mouthwash/Gargle (Gi Cocktail) 20 ml 1X ONCE 09/23/19 23:45 09/23/19 23:46 DC 09/24/19 00:03 20 ML Ondansetron HCl (Zofran) 4 mg 1X ONCE 09/23/19 22:00 09/23/19 22:01 DC 09/23/19 21:58 4 MG Sodium Chloride 1,000 ml @ 1,000 mls/hr Q1H 09/23/19 21:45 09/23/19 22:44 DC 09/23/19 21:59 1,000 MLS/HR Allergies Allergies Allergies Coded Allergies Type Severity Reaction Last Updated Verified ketorolac Allergy Severe ANAPHYLAXIS; TOLERATES ASA 01/06/17 Yes NSAIDS (Non-Steroidal Anti-Inflamma Allergy Intermediate TOLERATES ASA 01/06/17 Yes gabapentin Allergy Intermediate 12/11/14 Yes morphine Allergy Intermediate Hives, tolerates Dilaudid 12/10/14 Yes vancomycin Allergy Intermediate 06/05/16 Yes Physical Exam Physical Exam Constitutional: Well developed, well nourished, no acute distress, non-toxic appearance. [] HENT: Normocephalic, atraumatic, bilateral external ears normal, oropharynx moist, no oral exudates, nose normal. [] Eyes: PERRLA, EOMI, conjunctiva normal, no discharge. [] Neck: Normal range of motion, no tenderness, supple, no stridor. [] Cardiovascular:Heart rate regular rhythm, no murmur [] Lungs & Thorax: Bilateral breath sounds clear to auscultation [] Abdomen: Bowel sounds normal, soft, no tenderness, no masses, no pulsatile masses. [] Skin: Warm, dry, no erythema, no rash. [] Back: No tenderness, no CVA tenderness. [] Extremities: No tenderness, no cyanosis, no clubbing, ROM intact, no edema. [] Neurologic: Alert and oriented X 3, normal motor function, normal sensory function, no focal deficits noted. [] Psychologic: Affect normal, judgement normal, mood normal. [] Current Patient Data Vital Signs Vital Signs Date Time Temp Pulse Resp B/P (MAP) Pulse Ox O2 Delivery O2 Flow Rate FiO2 09/23/19 21:58 16 98 Room Air 09/23/19 20:49 97.9 95 132/82 (99) 97.9 Lab Values Laboratory Tests Test 09/23/19 21:14 09/23/19 21:32 Urine Collection Type Unknown Urine Color Yellow Urine Clarity Clear Urine pH 6.5 Urine Specific Chappell 1.025 Urine Protein Negative mg/dL (NEG-TRACE) Urine Glucose (UA) 500 mg/dL (NEG) Urine Ketones (Stick) Trace mg/dL (NEG) Urine Blood Negative (NEG) Urine Nitrite Negative (NEG) Urine Bilirubin Negative (NEG) Urine Urobilinogen Dipstick 0.2 mg/dL (0.2 mg/dL) Urine Leukocyte Esterase Negative (NEG) Urine RBC 0 /HPF (0-2) Urine WBC Rare /HPF (0-4) Urine Squamous Epithelial Cells Few /LPF Urine Bacteria 0 /HPF (0-FEW) Urine Mucus Slight /LPF White Blood Count 12.6 x10^3/uL (4.0-11.0) H Red Blood Count 4.72 x10^6/uL (4.30-5.70) Hemoglobin 14.4 g/dL (13.0-17.5) Hematocrit 41.9 % (39.0-53.0) Mean Corpuscular Volume 89 fL (79-100) Mean Corpuscular Hemoglobin 31 pg (25-35) Mean Corpuscular Hemoglobin Concent 35 g/dL (31-37) Red Cell Distribution Width 13.3 % (11.5-14.5) Platelet Count 263 x10^3/uL (140-400) Neutrophils (%) (Auto) 69 % (31-73) Lymphocytes (%) (Auto) 18 % (24-48) L Monocytes (%) (Auto) 6 % (0-9) Eosinophils (%) (Auto) 7 % (0-3) H Basophils (%) (Auto) 1 % (0-3) Neutrophils # (Auto) 8.7 x10^3/uL (1.8-7.7) H Lymphocytes # (Auto) 2.2 x10^3/uL (1.0-4.8) Monocytes # (Auto) 0.7 x10^3/uL (0.0-1.1) Eosinophils # (Auto) 0.8 x10^3/uL (0.0-0.7) H Basophils # (Auto) 0.1 x10^3/uL (0.0-0.2) Prothrombin Time 12.4 SEC (11.7-14.0) Prothrombin Time INR 1.0 (0.8-1.1) Activated Partial Thromboplast Time 30 SEC (24-38) Sodium Level 139 mmol/L (136-145) Potassium Level 3.8 mmol/L (3.5-5.1) Chloride Level 99 mmol/L (98-107) Carbon Dioxide Level 29 mmol/L (21-32) Anion Gap 11 (6-14) Blood Urea Nitrogen 16 mg/dL (8-26) Creatinine 1.0 mg/dL (0.7-1.3) Estimated GFR (Cockcroft-Gault) 80.1 BUN/Creatinine Ratio 16 (6-20) Glucose Level 248 mg/dL (70-99) H Calcium Level 10.5 mg/dL (8.5-10.1) H Magnesium Level 1.6 mg/dL (1.8-2.4) L Total Bilirubin 0.2 mg/dL (0.2-1.0) Aspartate Amino Transferase (AST) 13 U/L (15-37) L Alanine Aminotransferase (ALT) 32 U/L (16-63) Alkaline Phosphatase 97 U/L (46-116) Total Protein 7.2 g/dL (6.4-8.2) Albumin 3.3 g/dL (3.4-5.0) L Albumin/Globulin Ratio 0.8 (1.0-1.7) L Lipase 53 U/L (73-393) L Laboratory Tests 09/23/19 21:32 Laboratory Tests 09/23/19 21:32 EKG EKG [] Radiology/Procedures Radiology/Procedures [][facility] [address] [place] [address] IMAGING REPORT Signed PATIENT: ANDRES FAY ACCOUNT: [id number] : 1970 LOCATION: ER AGE: 48 SEX: M EXAM STATUS: REG ER ORD. PHYSICIAN: DAWOOD KAUFFMAN DO REASON: ABDOMINAL PAIN FOR 5 DAYS, OMNI 300 75 ML IV PROCEDURE: CT ABD PELV W/ IV CONTRST ONLY Exam: CT of abdomen and pelvis with contrast INDICATION: Abdominal pain for 5 days TECHNIQUE: Sequential axial images through the abdomen and pelvis obtained following the administration of 75 mL of Omni 300 IV contrast. Sagittal and coronal reformatted images were reconstructed from the axial data and reviewed. Comparisons: 07/24/2019 FINDINGS: Heart size is normal. No pericardial effusion. Visualized lung bases are clear. No pleural effusion. Liver, spleen, pancreas and adrenals are unremarkable. Gallbladder surgically absent. Kidneys demonstrate symmetric enhancement. No perinephric inflammation or hydronephrosis. No renal or ureteral calculi are identified. Bladder is distended and appears thin-walled. Prostate is not enlarged. Scattered diverticula are noted in the sigmoid colon without evidence of acute diverticulitis. Remainder of the large and small bowel are unremarkable. Appendix is not identified. No free intra-abdominal air or fluid. No obstruction. Abdominal aorta has a normal course and caliber. Abdominal vasculature is patent. No enlarged intra-abdominal lymph nodes are identified. No suspicious osseous lesions or acute fractures. IMPRESSION: No acute process identified within the abdomen or pelvis. Exposure: One or more of the following in the visualized dose reduction techniques were utilized for this examination: 1. Automated exposure control 2. Adjustment of the MA and/or KV according to patient size 3. Use of iterative of reconstructive technique Electronically signed by: Waylon Castro MD (09/23/2019 10:48 PM) [id number] DICTATED and SIGNED BY: WAYLON CASTRO MD DATE: 09/23/19 8866 Course & Med Decision Making Course & Med Decision Making Pertinent Labs and Imaging studies reviewed. (See chart for details) [] Dragon Disclaimer Dragon Disclaimer This electronic medical record was generated, in whole or in part, using a voice recognition dictation system. Departure Departure Impression: Primary Impression: Abdominal pain Disposition: HOME, SELF-CARE Condition: STABLE Referrals: UNKNOWN PCP NAME (PCP) PLEASE FOLLOW UP WITH YOUR DOCTOR NEXT WEEK Patient Instructions: Abdominal Pain Additional Instructions: Thank you for visiting our Emergency Department. We appreciate you trusting us with your care. If any additional problems come up don't hesitate to return to visit us. Please follow up with your primary care provider so they can plan additional care if needed and know about the problem that you had. If symptoms worsen come back to the Emergency Department. Any concerning symptoms that start such as chest pain, shortness of air, weakness or numbness on one side of the body, running high fevers or any other concerning symptoms return to the ER. Scripts Metoclopramide Hcl (REGLAN) 10 Mg Tablet 1 TAB PO QID PRN for NAUSEA for 7 Days, #28 TAB 0 Refills before food and bedtime Prov: DAWOOD KAUFFMAN DO 09/24/19 DAWOOD KAUFFMAN DO Sep 23, 2019 21:46
[2019-09-23 21:50] LABS: BILIRUBIN,URINE NEGATIVE (NEG); CLARITY,URINE CLEAR; COLOR,URINE YELLOW; NITRITE,URINE NEGATIVE (NEG); PH,URINE 6.5; PROTEIN,URINE NEGATIVE (NEG-TRACE); UROBILINOGEN,URINE 0.2 mg/dL (0.2 mg/dL)
[2019-09-23 21:50] LABS: CALCIUM 10.5 mg/dL (8.5-10.1); GFR 80.1; POTASSIUM 3.8 mmol/L (3.5-5.1)
[2019-09-23 21:53] LABS: PROTHROMBIN TIME PATIENT 12.4 SEC (11.7-14.0)
[2019-09-23 21:56] LABS: BACTERIA,URINE 0 /HPF (0-FEW); RBC,URINE 0 /HPF (0-2); SQUAMOUS EPITHELIAL CELL,UR FEW /LPF; WBC,URINE RARE /HPF (0-4)
[2019-09-23 21:56] LABS: ALBUMIN 3.3 g/dL (3.4-5.0); ALBUMIN/GLOBULIN RATIO 0.8 (1.0-1.7); MAGNESIUM 1.6 mg/dL (1.8-2.4); TOTAL BILIRUBIN 0.2 mg/dL (0.2-1.0); TOTAL PROTEIN 7.2 g/dL (6.4-8.2)
[2019-09-23] MEDS ORDERED: ONDANSETRON PF 4 MG/2 ML VIAL. IVP ONE (22:00)
[2019-09-23] MEDS ORDERED: fentaNYL PF VIAL 100 MCG/2 ML VIAL IVP ONE (22:00)
[2019-09-23] MEDS ORDERED: MAGNESIUM SULFATE 2GM 50 ML IV ONE (22:15)
[2019-09-23] MEDS ORDERED: CONTRAST GIVEN. MC PRN (22:30)
[2019-09-23] MEDS ORDERED: IOHEXOL 300 MG/ML 100ML VIAL. IV ONE (22:30)
--- NOTE | 2019-09-23 22:51 | RAD ---
Exam: CT of abdomen and pelvis with contrast INDICATION: Abdominal pain for 5 days TECHNIQUE: Sequential axial images through the abdomen and pelvis obtained following the administration of 75 mL of Omni 300 IV contrast. Sagittal and coronal reformatted images were reconstructed from the axial data and reviewed. Comparisons: 07/24/2019 FINDINGS: Heart size is normal. No pericardial effusion. Visualized lung bases are clear. No pleural effusion. Liver, spleen, pancreas and adrenals are unremarkable. Gallbladder surgically absent. Kidneys demonstrate symmetric enhancement. No perinephric inflammation or hydronephrosis. No renal or ureteral calculi are identified. Bladder is distended and appears thin-walled. Prostate is not enlarged. Scattered diverticula are noted in the sigmoid colon without evidence of acute diverticulitis. Remainder of the large and small bowel are unremarkable. Appendix is not identified. No free intra-abdominal air or fluid. No obstruction. Abdominal aorta has a normal course and caliber. Abdominal vasculature is patent. No enlarged intra-abdominal lymph nodes are identified. No suspicious osseous lesions or acute fractures. IMPRESSION: No acute process identified within the abdomen or pelvis. Exposure: One or more of the following in the visualized dose reduction techniques were utilized for this examination: 1. Automated exposure control 2. Adjustment of the MA and/or KV according to patient size 3. Use of iterative of reconstructive technique Electronically signed by: Waylon Grimaldo MD (09/23/2019 10:48 PM) [id number]
[2019-09-23] MEDS ORDERED: FAMOTIDINE 20 MG/2 ML VIAL IVP ONE (23:45)
[2019-09-23] MEDS ORDERED: METOCLOPRAMIDE HCL 10 MG/2 ML VIAL. IVP ONE (23:45)
[2019-09-23] MEDS ORDERED: diphenhydrAMINE 50 MG/ML VIAL IVP ONE (23:45)
[2019-09-23] MEDS ORDERED: LIDO:MAALOX 1:1 20 ML SINGLE DOSE. SWSW ONE (23:45)
[2019-09-23 23:46] VITALS: BP 157/72
[2019-09-24] MEDS ORDERED: METO10TA81 PO (00:09)
== END 2019-09-24 00:18 | disposition home or self-care (01) ==
LOC: ER 20:41
DX: R10.13 Epigastric pain (principal); R11.0 Nausea; J45.909 Unspecified asthma, uncomplicated; E11.9 Type 2 diabetes mellitus without complications; I10 Essential (primary) hypertension; F12.90 Cannabis use, unspecified, uncomplicated; Z90.49 Acquired absence of other specified parts of digestive tract; Z90.89 Acquired absence of other organs; Z87.442 Personal history of urinary calculi; Z87.891 Personal history of nicotine dependence; Z98.890 Other specified postprocedural states; Z88.1 Allergy status to other antibiotic agents; Z88.6 Allergy status to analgesic agent; Z88.2 Allergy status to sulfonamides; Z88.4 Allergy status to anesthetic agent; Z88.8 Allergy status to other drugs, medicaments and biological substances
CPT/HCPCS: 36415; 74177; 80053; 81001; 83690; 83735; 85025; 85610; 85730; 96365; 96366; 96375; 99285; J2405; J2765; J3010; J3475; J7030; Q9967